=== PATIENT | female | born 1960 ===

== ENCOUNTER 2016-06-18 07:02 | Inpatient (IN) | payer MEDICARE, MEDICAID ==
[2016-06-18 07:02] VITALS: BMI 22.0
--- NOTE | 2016-06-18 07:33 | ED PDOC ---
HPI: General Adult Time Seen by Provider: 06/18/16 07:30 Chief Complaint (Nursing): Abdominal Pain Chief Complaint (Provider): abdominal pain History Per: Patient History/Exam Limitations: no limitations Additional Complaint(s): 55yo female w/ Hx diabetes, colitis, complaining of persistent abdominal pain, diarrhea, vomit since last night. No fever or blood in stool. PMD: Clinic Past Medical History Reviewed: Historical Data, Nursing Documentation, Vital Signs Vital Signs: Last Vital Signs Temp 97 F L 06/18/16 07:15 Pulse 100 H 06/18/16 07:15 Resp 20 06/18/16 07:15 BP 144/79 06/18/16 07:15 Pulse Ox 98 06/18/16 09:39 - Medical History PMH: Anxiety, Asthma, CAD, Depression, Diabetes, Fractures (rib (left)), Gastritis, Hyperthyroidism (pt is not sure what she has ), Hypothyroidism Denies: Arthritis, CHF, COPD, HIV, HTN, Hypercholesterolemia, Chronic Kidney Disease, Rheumatoid Arthritis Other PMH: colitis - Surgical History Surgical History: Appendectomy, Cholecystectomy, Coronary Stent, Tonsillectomy - Family History Family History: States: Unknown Family Hx - Immunization History Hx Tetanus Toxoid Vaccination: No Hx Influenza Vaccination: Yes Hx Pneumococcal Vaccination: Yes - Home Medications Home Medications: Ambulatory Orders Medication Instructions Recorded Insulin Lispro [humALOG] 4 units SC AC #0 ml 05/21/14 clonazePAM [Klonopin] 0.5 mg PO Q12 #0 tab 05/21/14 Citalopram Hydrobromide [Celexa] 20 mg PO DAILY 06/14/14 Lidocaine [Lidoderm] 1 patch TD DAILY 06/14/14 Pregabalin [Lyrica] 100 mg PO BID 06/14/14 QUEtiapine [SEROquel] 200 mg PO BID 06/14/14 Acetaminophen/Oxycodone Hydr 1 tab PO Q4H PRN #120 tab 09/15/14 [Percocet 10/325 mg Tab] Insulin Glargine,Hum.rec.anlog 12 units SC HS #0 09/15/14 [Lantus] Ciprofloxacin/Dexamethasone 4 drop OD BID #1 bottle 12/23/14 [Ciprodex Otic] Clindamycin [Cleocin] 300 mg PO Q8 #21 cap 10/17/16 Tramadol HCl [Ultram] 50 mg PO BID PRN #30 tablet 12/19/15 - Allergies Allergies/Adverse Reactions: Allergies Allergy/AdvReac Type Severity Reaction Status Date / Time Penicillins Allergy RASH Verified 06/18/16 07:15 Review of Systems ROS Statement: Except As Marked, All Systems Reviewed And Found Negative Constitutional: Negative for: Fever Gastrointestinal: Positive for: Vomiting, Abdominal Pain, Diarrhea. Negative for: Hematochezia Physical Exam - Reviewed Nursing Documentation Reviewed: Yes Vital Signs Reviewed: Yes - Physical Exam Appears: Positive for: Well, Non-toxic, No Acute Distress Head Exam: Positive for: ATRAUMATIC, NORMAL INSPECTION, NORMOCEPHALIC Skin: Positive for: Warm, Dry Eye Exam: Positive for: EOMI, PERRL ENT: Positive for: Other (dry mucous membranes) Cardiovascular/Chest: Positive for: Regular Rate, Rhythm Respiratory: Positive for: Normal Breath Sounds. Negative for: Rales, Rhonchi, Wheezing Gastrointestinal/Abdominal: Positive for: Soft, Tenderness (diffuse). Negative for: Guarding, Rebound Extremity: Positive for: Normal ROM - Laboratory Results Result Diagrams: 06/18/16 07:55 06/18/16 09:27 - ECG O2 Sat by Pulse Oximetry: 98 (RA) Pulse Ox Interpretation: Normal Medical Decision Making Medical Decision Makin: CT abd/pel w/ contrast, EKG, VBG shock panel, Labs, Morphine, Zofran, IV Fluids , ordered 0830: Accucheck shows glucose >500. Lactate 3.4. 10 units insulin was ordered. Repeat VBG shock panel at 1035 was ordered. Calculated osmolarity 330 hyperosmolar Disposition - Clinical Impression Clinical Impression: Colitis, Sepsis, Hyperosmolality, Diabetes - Patient ED Disposition Is Patient to be Admitted: Yes - Disposition Disposition Time: 10:55 Condition: FAIR - Pt Status Changed To: Hospital Disposition Of: Inpatient - Admit Certification Admit to Inpatient:: After my assessment, the patient will require hospitalization for at least two midnights. This is because of the severity of symptoms shown, intensity of services needed, and/or the medical risk in this patient being treated as an outpatient. - POA Present On Arrival: None Additional Comments - Additional Comments Additional Comments: Scribe Attestation: Documented by Aiden Ansari acting as a scribe for Emil Pugh MD. Provider Scribe Attestation: All medical record entries made by the Scribe were at my direction and personally dictated by me. I have reviewed the chart and agree that the record accurately reflects my personal performance of the history, physical exam, medical decision making, and the department course for this patient. I have also personally directed, reviewed, and agree with the discharge instructions and disposition.
[2016-06-18] MEDS ORDERED: Sodium Chloride 0.9% 1,000 ML IV STA ×2 (07:34→08:24)
[2016-06-18 08:05] LABS: BASO # 0.1 K/uL (0.0-0.2); BASO % 0.3 % (0.0-2.0); EOS % 0.1 % (0.0-4.0); HEMATOCRIT 39.6 % (34.0-47.0); LYMPH # 2.3 K/uL (1.0-4.3); LYMPH % 11.5 % (20.0-40.0); MEAN CORPUSCULAR HEMOGLOBIN 31.5 pg (27.0-31.0); MEAN CORPUSCULAR HGB CONC 32.9 g/dL (33.0-37.0); MEAN PLATELET VOLUME 8.4 fl (7.2-11.7); MONO # 1.6 K/uL (0.0-0.8); NEUT # 16.4 K/uL (1.8-7.0); NEUT % 80.1 % (50.0-75.0); RED CELL DISTRIBUTION WIDTH 13.8 % (11.5-14.5); WHITE BLOOD COUNT 20.5 K/uL (4.8-10.8)
[2016-06-18 08:09] LABS: MEAN CELL VOLUME 95.8 fl (81.0-99.0)
[2016-06-18 08:13] LABS: ALB/GLOB RATIO 1.1 (1.0-2.1); ALKALINE PHOSPHATASE 195 U/L (38-126); ALT/SGPT 70 U/L (9-52); AST/SGOT 90 U/L (14-36); BLOOD UREA NITROGEN 22 mg/dl (7-17); CARBON DIOXIDE 25 mmol/L (22-30); CHLORIDE 99 mmol/L (98-107); GFR AFRICAN-AMERICAN > 60; SODIUM 145 mmol/l (132-148); TOTAL PROTEIN 8.3 G/DL (6.3-8.2)
[2016-06-18 08:22] LABS: GLUCOSE,RANDOM 582 mg/dL (65-105)
[2016-06-18] MEDS ORDERED: Insulin Regular 100 units/ml IV STA (08:23)
[2016-06-18 08:24] LABS: VENOUS BLOOD GAS BASE EXCESS 7.9 mmol/L (0.0-2.0); VENOUS BLOOD GAS PCO2 36 mmHg (40-60); VENOUS BLOOD PH 7.54 (7.32-7.43)
[2016-06-18] MEDS ORDERED: Ciprofloxacin 400mg/200ml D5W 200 ML IVPB STA (09:39)
[2016-06-18 09:43] LABS: BLOOD UREA NITROGEN 20 mg/dl (7-17); CALCIUM 9.1 mg/dL (8.4-10.2); CARBON DIOXIDE 20 mmol/L (22-30); CHLORIDE 107 mmol/L (98-107); GFR AFRICAN-AMERICAN > 60; POTASSIUM 3.8 MMOL/L (3.6-5.0); SODIUM 149 mmol/l (132-148)
[2016-06-18 09:51] LABS: GLUCOSE,RANDOM 408 mg/dL (65-105)
[2016-06-18] MEDS ORDERED: Iohexol 300 50 ML ONE (09:51)
[2016-06-18] MEDS ORDERED: Sodium Chloride 0.9% 50 ML IV ONE (09:51)
--- NOTE | 2016-06-18 10:38 | CT ---
PROCEDURE: CT Abdomen and Pelvis with contrast HISTORY: abd pain COMPARISON: Limited abdominal ultrasound performed 12/23/14, CT abdomen and pelvis with contrast performed 09/13/14 TECHNIQUE: Contrast dose: 95 mL Omnipaque 300 Radiation dose: Total exam DLP = 314.68 mGy-cm. This CT exam was performed using one or more of the following dose reduction techniques: Automated exposure control, adjustment of the mA and/or kV according to patient size, and/or use of iterative reconstruction technique. FINDINGS: LOWER THORAX: No visible consolidation, pleural effusion, or pneumothorax. LIVER: Hypoattenuation of the liver compatible with hepatic steatosis. GALLBLADDER AND BILE DUCTS: Cholecystectomy. PANCREAS: Fatty replacement of the pancreas with minimal pancreatic tissue noted in the region of the head/proximal body. SPLEEN: Multiple soft tissue rounded densities in the left upper quadrant appear compatible with splenules. ADRENALS: Unremarkable. KIDNEYS AND URETERS: The kidneys enhance symmetrically. No evidence of hydronephrosis or obstructing calculus. Too small to characterize 5 mm left lower pole renal hypodensity, statistically likely cysts. 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 No aortic aneurysm. BOWEL: The stomach is nondistended. No evidence of bowel obstruction. Non rotation of bowel with colon on the left side of the abdomen and small bowel on the right side of the abdomen. Mucosal thickening/edema of the sigmoid colon wall; correlate clinically for possibility of colitis (i.e. infectious, inflammatory, or ischemic) APPENDIX: Not visualized. No secondary signs of acute appendicitis. PERITONEUM: No significant free fluid. No definite free air. LYMPH NODES: No bulky adenopathy. BLADDER: Unremarkable. REPRODUCTIVE: The uterus is absent , presumably due to hysterectomy. BONES: Degenerative changes. OTHER FINDINGS: Tiny fat containing umbilical hernia. IMPRESSION: Mucosal thickening/edema of the sigmoid colon wall; correlate clinically for possibility of colitis (i.e. infectious, inflammatory, or ischemic) Non rotation of bowel with colon on the left side of the abdomen and small bowel on the right side of the abdomen. Fatty replacement of the pancreas with minimal pancreatic tissue noted in the region of the head/proximal body. Multiple soft tissue rounded densities in the left upper quadrant appear compatible with splenules. Cholecystectomy. Hysterectomy.
[2016-06-18 10:50] LABS: ABG ALLEN TEST YES; ARTERIAL BLOOD GAS HCO3 30.7 mmol/L (21-28); ARTERIAL BLOOD GAS PH 7.47 (7.35-7.45); ARTERIAL BLOOD GAS PO2 88 mm/Hg (80-100)
[2016-06-18] MEDS ORDERED: Vancomycin 1 g Inj ONE (11:20)
[2016-06-18] MEDS ORDERED: Ciprofloxacin 400mg/200ml D5W 200 ML IVPB ONE (11:20)
[2016-06-18 12:41] LABS: LIPASE 141 U/L (23-300)
[2016-06-18] MEDS: Insulin Regular 100 units/ml SC SCH ×4 (13:09→22:15)
--- NOTE | 2016-06-18 13:20 | CP.PCM.HP ---
History of Present Illness - History of Present Illness History of Present Illness: CC: Abdominal Pain HPI: The patient is a 55 y/o woman w/ a PMH of HTN, CAD s/p stent 2006, DM type 2, Hypothyroidism, neuropathy, and osteoarthritis presents to the ED with abdominal pain. The patient reports that the pain started about 2 days ago after drinking 2 small glasses of [place] at a friend's house and the pain was at its worse this morning. The patient reports epigastric pain, non-radiating, constant, with multiple episodes of nausea, vomiting, and diarrhea. The vomit was >5 episodes that was non-bloody but possibly bilious and the diarrhea was > 5 episodes and watery. The patient denies new foods/diet, sick contacts, recent travel, and recent illness. The patient reports having colitis over 1 year ago but this is worse than that time. The patient reports having a colonoscopy about 1 year ago that was normal (however, no reports seen on [facility]). The patient reports that she continues to smoke about 1 pack/day for the past 41 years and is not interested in quitting or requiring nicotine patch while in the hospital. The patient denies any cancer or HIV history. The patient also denies sexual activity, last sexually active about 5 years ago. 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 The patient denies syncope, dysuria, and fevers. Allergies: penicillins (rash) PMH: HTN, CAD s/p stent 2006, DM type 2, Hypothyroidism, neuropathy, and osteoarthritis PSH: tonsillectomy, hysterectomy (2001), cholecystectomy (), appendectomy ( 1997) Hosp: colitis >1 years ago Fam: both parents , mother had thyroid cancer SOC: smokes about 1 pack/day for 41 years, rare social drinking, ingested marijuana recently and uses marijuana about once a month ROS: negative except for HPI PMD: [facility], Dr. Nakia Warner Pharmacy: [facility] ED course: vitals: 98.4 F, 93 beats/min, 154/87 mmHg, 16 breaths/min, O2 99% NC [address] abdomen/pelvis w/ contrast EKG VBG shock panel CBC CMP Given zofran, IVF NS, x2 morphine 2mg IV, reglan 10 mg IV, ciprofloxacin 400 mg IV, vancomycin 1 gm IV Present on Admission - Present on Admission Any Indicators Present on Admission: No Review of Systems - Review of Systems All systems: reviewed and no additional remarkable complaints except Past Patient History - Infectious Disease Hx of Infectious Diseases: None - Past Medical History & Family History Past Medical History?: Yes - Past Social History Smoking Status: Light Smoker < 10 Cigarettes Daily - CARDIAC Hx Congestive Heart Failure: No Hx Hypercholesterolemia: No Hx Hypertension: No - PULMONARY Hx Asthma: Yes Hx Chronic Obstructive Pulmonary Disease (COPD): No - NEUROLOGICAL Hx Syncope: Yes (frequent falls) - HEENT Hx HEENT Problems: No - RENAL Hx Chronic Kidney Disease: No - ENDOCRINE/METABOLIC Hx Hyperthyroidism: Yes (pt is not sure what she has ) Hx Hypothyroidism: Yes - HEMATOLOGICAL/ONCOLOGICAL Hx Human Immunodeficiency Virus (HIV): No - INTEGUMENTARY Other/Comment: R very small dry scab hx of fall at home - MUSCULOSKELETAL/RHEUMATOLOGICAL Hx Arthritis: No Hx Fractures: Yes (rib (left)) Hx Rheumatoid Arthritis: No - GASTROINTESTINAL Hx Gastritis: Yes - GENITOURINARY/GYNECOLOGICAL Hx Genitourinary Disorders: No - PSYCHIATRIC Hx Anxiety: Yes Hx Depression: Yes - SURGICAL HISTORY Hx Appendectomy: Yes Hx Cholecystectomy: Yes Hx Coronary Stent: Yes Hx Tonsillectomy: Yes - ANESTHESIA Hx Anesthesia: Yes Hx Anesthesia Reactions: No Hx Malignant Hyperthermia: No Meds Allergies/Adverse Reactions: Allergies Allergy/AdvReac Type Severity Reaction Status Date / Time Penicillins Allergy RASH Verified 06/18/16 07:15 Physical Exam - Constitutional Appears: No Acute Distress - Head Exam Head Exam: ATRAUMATIC, NORMOCEPHALIC - Eye Exam Eye Exam: EOMI Pupil Exam: PERRL - ENT Exam ENT Exam: Mucous Membranes Dry - Respiratory Exam Respiratory Exam: Clear to Auscultation Bilateral. absent: Accessory Muscle Use , Chest Wall Tenderness, Decreased Breath Sounds, Prolonged Expiratory Phase, Rales, Rhonchi, Wheezes, Respiratory Distress, Stridor - Cardiovascular Exam Cardiovascular Exam: REGULAR RHYTHM. absent: Tachycardia - GI/Abdominal Exam GI & Abdominal Exam: Normal Bowel Sounds, Soft, Tenderness. absent: Distended Additional comments: epigastric tenderness - Extremities Exam Extremities exam: Positive for: normal inspection, pedal pulses present. Negative for: calf tenderness, pedal edema, tenderness - Neurological Exam Neurological exam: Alert, Oriented x3 - Skin Skin Exam: Dry, Intact, Pallor Results - Vital Signs Recent Vital Signs: Last Vital Signs Temp 97 F L 04/17/17 07:15 Pulse 100 H 06/18/16 07:15 Resp 20 06/18/16 07:15 BP 144/79 06/18/16 07:15 Pulse Ox 98 06/18/16 10:55 - Labs Result Diagrams: 06/18/16 07:55 06/18/16 09:27 Labs: Laboratory Results - last 24 hr 06/18/16 06/18/16 06/18/16 07:55 08:20 09:27 WBC 20.5 H D RBC 4.13 Hgb 13.0 Hct 39.6 MCV 95.8 D MCH 31.5 H MCHC 32.9 L RDW 13.8 Plt Count 332 MPV 8.4 Neut % (Auto) 80.1 H Lymph % (Auto) 11.5 L Montgomery % (Auto) 8.0 Eos % (Auto) 0.1 Baso % (Auto) 0.3 Neut # 16.4 H Lymph # 2.3 Montgomery # 1.6 H Eos # 0.0 Baso # 0.1 pCO2 pO2 32 HCO3 ABG pH ABG Total CO2 ABG O2 Saturation ABG Base Excess Kayode Test ABG Potassium VBG pH 7.54 H VBG pCO2 36 L VBG HCO3 30.4 VBG Total CO2 31.9 H VBG O2 Sat (Calc) 71.3 H VBG Base Excess 7.9 H VBG Potassium 4.5 A-a O2 Difference 73.0 Glucose 602 H* Lactate 3.4 H FiO2 21.0 Crit Value Called To Dr rafaela duarte Crit Value Called By 15 Crit Value Read Back Y Blood Gas Notified Time 823 Sodium 145 142.0 149 H Potassium 3.8 Chloride 99 102.0 107 Carbon Dioxide 25 20 L Anion Gap 28 H 26 H BUN 22 H 20 H Creatinine 0.5 L 0.5 L Est GFR ( Amer) > 60 > 60 Est GFR (Non-Af Amer) > 60 > 60 Random Glucose 582 H* D 408 H* D Calcium 10.0 9.1 Total Bilirubin 2.0 H AST 90 H D ALT 70 H D Alkaline Phosphatase 195 H D Total Protein 8.3 H Albumin 4.4 Globulin 3.9 Albumin/Globulin Ratio 1.1 Lipase 141 Arterial Blood Potassium Venous Blood Potassium 4.5 06/18/16 10:40 WBC RBC Hgb Hct MCV MCH MCHC RDW Plt Count MPV Neut % (Auto) Lymph % (Auto) Montgomery % (Auto) Eos % (Auto) Baso % (Auto) Neut # Lymph # Montgomery # Eos # Baso # pCO2 44 pO2 88 HCO3 30.7 H ABG pH 7.47 H ABG Total CO2 33.4 H ABG O2 Saturation 96.7 ABG Base Excess 7.4 H Kayode Test Yes ABG Potassium 3.3 L VBG pH VBG pCO2 VBG HCO3 VBG Total CO2 VBG O2 Sat (Calc) VBG Base Excess VBG Potassium A-a O2 Difference 7.0 Glucose 180 H Lactate 2.5 H FiO2 21.0 Crit Value Called To Crit Value Called By Crit Value Read Back Blood Gas Notified Time Sodium 145.0 Potassium Chloride 111.0 H Carbon Dioxide Anion Gap BUN Creatinine Est GFR ( Amer) Est GFR (Non-Af Amer) Random Glucose Calcium Total Bilirubin AST ALT Alkaline Phosphatase Total Protein Albumin Globulin Albumin/Globulin Ratio Lipase Arterial Blood Potassium 3.3 L Venous Blood Potassium Assessment & Plan - Assessment and Plan (Free Text) Assessment: The patient is a 55 y/o woman w/ a PMH of HTN, DM type 2, Hypothyroidism, neuropathy, and osteoarthritis presents to the ED with abdominal pain Plan: 1) Sepsis secondary to colitis - + leukocytosis (WBC 20.5) but afebrile - initial lactate 3.4 - repeat lactate 2.5 - CT abdomen w/contrast: mucosal thickening/edema of sigmoid colon wall, cholecystectomy, hysterectomy - NPO - Ciprofloxacin 400 mg IV Q12h - metronidazole 500 mg IV Q8 - Zofran 4 mg IV Q 4hrs PRN - Morphine 2 mg IV Q6 prn - IVF NS 100mL/hr - follow up blood culture 2) Epigastric pain - lipase: 141, WNL - Ca2+ 9.1 - EKG: (prelim) NSR - Pepcid 20 mg IV once - Pepcid 20 mg PO BID 3) Hyperglycemia - DM Type 2 - glucose 582 - hyperosmolar - HgbA1c: 10.8 (02/2016) - Insulin Levemir 10 units SC HS - Insulin Sliding Scale SC ACHS - hypoglycemia protocol 4) Hypothyroidism - levothyroxine 50 mcg PO daily 5) HTN - lisinopril 10 mg PO daily 6) Hx of Major Depression - home medications: quetiapine 600 mg PO HS, mirtazapine 15 mg PO HS - held citalopram 40 mg PO daily 7) Chronic pain (b/l shoulders and lower extremities) - morphine 2 mg IV Q6h prn - patient follows up with Dr. Cardenas from pain management 8) DVT prophylaxis - Lovenox 40units SC daily
--- NOTE | 2016-06-18 16:10 | CARD ---
APPROVED REPORT EKG Measurement Heart [id number] <Conclusion> Sinus rhythm with premature supraventricular complexes Otherwise normal ECG
[2016-06-18] MEDS: Enoxaparin 40 mg Syringe SC SCH (16:34)
[2016-06-18 17:32] LABS: BLOOD UREA NITROGEN 20 mg/dl (7-17); CALCIUM 8.8 mg/dL (8.4-10.2); CARBON DIOXIDE 29 mmol/L (22-30); CHLORIDE 105 mmol/L (98-107); GFR AFRICAN-AMERICAN > 60; GLUCOSE,RANDOM 99 mg/dL (65-105); POTASSIUM 3.7 MMOL/L (3.6-5.0); SODIUM 148 mmol/l (132-148)
[2016-06-18] MEDS ORDERED: Dextrose 50% SYRINGE Inj (50 ml) IVP PRN (18:40)
[2016-06-18] MEDS ORDERED: Glucagon Recombinant 1 mg Inj IM PRN (18:40)
[2016-06-18] MEDS: metroNIDAZOLE 500mg/100ml NS 100 ML IVPB SCH (18:41)
[2016-06-18] MEDS: Potassium Chl 20 mEq in NS 1,000 ML IV SCH (18:41)
[2016-06-18] MEDS: Insulin Detemir 100 Units/ml Inj SC SCH (22:17)
[2016-06-18] MEDS: Ciprofloxacin 400mg/200ml D5W 200 ML IVPB SCH (22:37)
[2016-06-19] MEDS: metroNIDAZOLE 500mg/100ml NS 100 ML IVPB SCH ×3 (00:31→16:55)
[2016-06-19] MEDS: Levothyroxine 50 MCG TAB PO SCH (06:30)
[2016-06-19] MEDS: Insulin Regular 100 units/ml SC SCH ×4 (06:50→22:36)
[2016-06-19 07:10] LABS: HEMATOCRIT 30.5 % (34.0-47.0); MEAN CELL VOLUME 94.6 fl (81.0-99.0); MEAN CORPUSCULAR HEMOGLOBIN 31.6 pg (27.0-31.0); MEAN CORPUSCULAR HGB CONC 33.4 g/dL (33.0-37.0); RED CELL DISTRIBUTION WIDTH 13.6 % (11.5-14.5); WHITE BLOOD COUNT 11.7 K/uL (4.8-10.8)
--- NOTE | 2016-06-19 07:17 | CP.PCM.PN ---
Subjective - Date & Time of Evaluation Date of Evaluation: 06/19/16 Time of Evaluation: 07:13 - Subjective Subjective: The patient is a 55 y/o woman w/ a PMH of HTN, DM type 2, Hypothyroidism, neuropathy, and osteoarthritis presents to the ED with abdominal pain. The patient was seen this morning. The patient was having shakes and had a blood sugar reading of 53 last night, which resolved with apple juice. The patient is not in acute distress. The patient reports she feels better and more active than yesterday. The patient denies nausea, vomiting, and diarrhea overnight. The patient reports the epigastric pain is still present but controlled with medication. The patient initially complained that IV on her left hand was causing pain. The IV was flushed and not infiltrated. Patient reported relief. The patient reports no other complaints. Objective - Vital Signs/Intake and Output Vital Signs (last 24 hours): Temp Pulse Resp BP Pulse Ox 98.6 F 93 H 18 115/68 97 06/19/16 05:00 06/19/16 05:00 06/19/16 05:00 06/19/16 05:00 06/19/16 05:00 - Medications Medications: Current Medications Albuterol (Ventolin Hfa 90 Mcg/Actuation (8 G)) 2 puff IH Q4H PRN PRN Reason: Shortness of Breath Alprazolam (Xanax) 0.5 mg PO TID [facility] Last Admin: 06/18/16 22:17 Dose: 0.5 mg Dextrose (Dextrose 50% Inj) 0 ml IVP STAT PRN; Protocol PRN Reason: Hypoglycemia Protocol Last Admin: 06/18/16 19:06 Dose: 50 ml Enoxaparin Sodium (Lovenox) 40 mg SC DAILY [facility] PRN Reason: Protocol Last Admin: 06/18/16 16:34 Dose: 40 mg Famotidine (Pepcid) 20 mg PO BID [facility] Last Admin: 06/18/16 18:43 Dose: 20 mg Glucagon (Glucagen Diagnostic Kit) 0 mg IM STAT PRN; Protocol PRN Reason: Hypoglycemia Protocol Ciprofloxacin (Cipro 400mg/200ml Dsw) 200 mls @ 200 mls/hr IVPB Q12 [facility] Last Admin: 06/18/16 22:37 Dose: 200 mls/hr Metronidazole (Flagyl 500mg/100ml Ns) 100 mls @ 100 mls/hr IVPB Q8 [facility] Last Admin: 06/19/16 00:31 Dose: 100 mls/hr Potassium Chloride/Sodium Chloride (Potassium Chl 20 Meq In Ns) 1,000 mls @ 90 mls/hr IV .[id number] [facility] Last Admin: 06/18/16 18:41 Dose: 90 mls/hr Insulin Detemir (Levemir) 10 units SC [facility] Last Admin: 06/18/16 22:17 Dose: 10 u Insulin Human Regular (Humulin R) 0 units SC ACHS [facility] PRN Reason: Protocol Last Admin: 06/18/16 22:15 Dose: Not Given Levothyroxine Sodium (Synthroid) 50 mcg PO ACB [facility] Last Admin: 06/19/16 06:30 Dose: 50 mcg Lisinopril (Zestril) 10 mg PO DAILY [facility] Mirtazapine (Remeron) 15 mg PO [facility] Last Admin: 06/18/16 21:24 Dose: 15 mg Morphine Sulfate (Morphine) 2 mg IVP Q6 PRN PRN Reason: Pain, moderate (4-7) Last Admin: 06/19/16 06:26 Dose: 2 mg Ondansetron HCl (Zofran Inj) 4 mg IVP Q6 PRN PRN Reason: Nausea/Vomiting Quetiapine Fumarate (Seroquel) 600 mg PO [facility] Last Admin: 06/18/16 21:24 Dose: 600 mg - Labs Labs: 06/18/16 17:13 - Constitutional Appears: No Acute Distress - Head Exam Head Exam: ATRAUMATIC, NORMOCEPHALIC - ENT Exam ENT Exam: Mucous Membranes Dry - Respiratory Exam Respiratory Exam: Clear to Ausculation Bilateral. absent: Accessory Muscle Use , Chest Wall Tenderness, Decreased Breath Sounds, Prolonged Expiratory Phase, Rales, Rhonchi, Wheezes, Respiratory Distress, Stridor - Cardiovascular Exam Cardiovascular Exam: REGULAR RHYTHM. absent: Tachycardia - GI/Abdominal Exam GI & Abdominal Exam: Soft, Tenderness, Normal Bowel Sounds. absent: Distended Additional comments: mild epigastric tenderness - Extremities Exam Extremities Exam: Normal Inspection. absent: Calf Tenderness, Pedal Edema, Tenderness - Neurological Exam Neurological Exam: Alert, Awake, Oriented x3 - Skin Skin Exam: Dry, Intact, Pallor, Warm Assessment and Plan - Assessment and Plan (Free Text) Assessment: The patient is a 55 y/o woman w/ a PMH of HTN, DM type 2, Hypothyroidism, neuropathy, and osteoarthritis presents to the ED with abdominal pain Plan: 1) Sepsis secondary to colitis - patient continues to be afebrile - lactic acid 2.9 - WBC decreased from 20.5 to 11.7 - CBC 11.7>10.2/30.5<234 - CT abdomen w/contrast: mucosal thickening/edema of sigmoid colon wall, cholecystectomy, hysterectomy - advanced to clear liquid diet with moderate consistent carbohydrate - Day 1: Ciprofloxacin 400 mg IV Q12h - Day 1: metronidazole 500 mg IV Q8 - Zofran 4 mg IV Q 4hrs PRN - Morphine 2 mg IV Q6 prn - IVF KCl 20 meq-NS 90mL/hr - follow up blood culture 2) Epigastric pain - lipase: 141, WNL - Ca2+ 8.3 - EKG: NSR with premature supraventricular complexes - Pepcid 20 mg PO BID 3) Hyperglycemia - Insulin dependent DM Type 2 - glucose 158 - hyperosmolar - HgbA1c: 10.8 (02/2016) - Insulin Levemir 10 units SC HS - Insulin Sliding Scale SC ACHS - hypoglycemia protocol 4) Anemia - Hg 10.2 - follow up iron level, ferritin, TIBC - follow up stool occult blood 5) Hypothyroidism - levothyroxine 50 mcg PO daily 6) HTN - lisinopril 10 mg PO daily 7) Hx of Major Depression - home medications: quetiapine 600 mg PO HS, mirtazapine 15 mg PO HS - held citalopram 40 mg PO daily 8) Chronic pain (b/l shoulders and lower extremities) - home medication: xanax 0.5 mg PO TID - morphine 2 mg IV Q6h prn - patient follows up with Dr. Borrego from pain management 9) DVT prophylaxis - Lovenox 40 mg SC daily
[2016-06-19 07:19] LABS: ALKALINE PHOSPHATASE 133 U/L (38-126); ALT/SGPT 57 U/L (9-52); AST/SGOT 31 U/L (14-36); BILIRUBIN,TOTAL 0.6 mg/dl (0.2-1.3); BLOOD UREA NITROGEN 14 mg/dl (7-17); CALCIUM 8.3 mg/dL (8.4-10.2); CARBON DIOXIDE 26 mmol/L (22-30); CHLORIDE 105 mmol/L (98-107); GFR AFRICAN-AMERICAN > 60; GLUCOSE,RANDOM 142 mg/dL (65-105); POTASSIUM 3.3 MMOL/L (3.6-5.0); SODIUM 141 mmol/l (132-148); TOTAL PROTEIN 5.3 G/DL (6.3-8.2)
[2016-06-19] MEDS: Ciprofloxacin 400mg/200ml D5W 200 ML IVPB SCH ×2 (08:56→23:48)
[2016-06-19] MEDS: Enoxaparin 40 mg Syringe SC SCH (08:59)
[2016-06-19] MEDS: Albuterol HFA 90 mcg/actuation (8 g) IH PRN (08:59)
[2016-06-19] MEDS: Potassium Chl 20 mEq in NS 1,000 ML IV SCH (14:00)
[2016-06-19] MEDS: Insulin Detemir 100 Units/ml Inj SC SCH (22:32)
[2016-06-20] MEDS: metroNIDAZOLE 500mg/100ml NS 100 ML IVPB SCH ×3 (02:40→16:46)
[2016-06-20] MEDS: Potassium Chl 20 mEq in NS 1,000 ML IV SCH ×2 (04:21→16:48)
[2016-06-20] MEDS: Levothyroxine 50 MCG TAB PO SCH (07:02)
--- NOTE | 2016-06-20 07:32 | CP.PCM.PN ---
Subjective - Date & Time of Evaluation Date of Evaluation: 06/20/16 Time of Evaluation: 07:05 - Subjective Subjective: The patient is a 55 y/o woman w/ a PMH of HTN, DM type 2, Hypothyroidism, neuropathy, and osteoarthritis presents to the ED with abdominal pain. The patient was seen this morning. The patient is laying in bed and awake. The patient's left IV infiltrated and resulted in edema of the hand. IV heplock was removed and patient was given warm compress. Swelling has subsided but still present. A new IV heplock was placed in the right hand, but the fluids have been held due to beginning of edema of the right hand as well. The patient has small veins. The patient is not in acute distress. The patient denies nausea and vomiting overnight; however reports a loose bowel movement this morning for which she did not get a chance to reach the bathroom. The patient reports the epigastric pain is still about the same but controlled with medication. The patient reports no other complaints. Objective - Vital Signs/Intake and Output Vital Signs (last 24 hours): Temp Pulse Resp BP Pulse Ox 98.8 F 93 H 20 150/80 97 06/20/16 00:44 06/20/16 00:44 06/20/16 00:44 06/20/16 00:44 06/20/16 00:44 - Medications Medications: Current Medications Albuterol (Ventolin Hfa 90 Mcg/Actuation (8 G)) 2 puff IH Q4H PRN PRN Reason: Shortness of Breath Last Admin: 06/19/16 08:59 Dose: 2 puff Alprazolam (Xanax) 0.5 mg PO TID [facility] Last Admin: 06/19/16 16:54 Dose: 0.5 mg Dextrose (Dextrose 50% Inj) 0 ml IVP STAT PRN; Protocol PRN Reason: Hypoglycemia Protocol Last Admin: 06/18/16 19:06 Dose: 50 ml Enoxaparin Sodium (Lovenox) 40 mg SC DAILY [facility] PRN Reason: Protocol Last Admin: 06/19/16 08:59 Dose: 40 mg Famotidine (Pepcid) 20 mg PO BID [facility] Last Admin: 06/19/16 16:55 Dose: 20 mg Glucagon (Glucagen Diagnostic Kit) 0 mg IM STAT PRN; Protocol PRN Reason: Hypoglycemia Protocol Ciprofloxacin (Cipro 400mg/200ml Dsw) 200 mls @ 200 mls/hr IVPB Q12 [facility] Last Admin: 06/19/16 23:48 Dose: 200 mls/hr Metronidazole (Flagyl 500mg/100ml Ns) 100 mls @ 100 mls/hr IVPB Q8 [facility] Last Admin: 06/20/16 02:40 Dose: 100 mls/hr Potassium Chloride/Sodium Chloride (Potassium Chl 20 Meq In Ns) 1,000 mls @ 90 mls/hr IV .Q11H7M [facility] Last Admin: 06/20/16 04:21 Dose: 90 mls/hr Insulin Detemir (Levemir) 10 units SC [facility] Last Admin: 06/19/16 22:32 Dose: 10 u Insulin Human Regular (Humulin R) 0 units SC [facility] PRN Reason: Protocol Last Admin: 06/19/16 22:36 Dose: Not Given Levothyroxine Sodium (Synthroid) 50 mcg PO ACB [facility] Last Admin: 06/20/16 07:02 Dose: 50 mcg Lisinopril (Zestril) 10 mg PO DAILY [facility] Last Admin: 06/19/16 08:58 Dose: 10 mg Mirtazapine (Remeron) 15 mg PO [facility] Last Admin: 06/19/16 22:24 Dose: 15 mg Morphine Sulfate (Morphine) 2 mg IVP Q6 PRN PRN Reason: Pain, moderate (4-7) Last Admin: 06/20/16 07:00 Dose: 2 mg Ondansetron HCl (Zofran Inj) 4 mg IVP Q6 PRN PRN Reason: Nausea/Vomiting Quetiapine Fumarate (Seroquel) 600 mg PO [facility] Last Admin: 06/19/16 22:25 Dose: 600 mg - Labs Labs: 06/19/16 06:15 06/19/16 06:15 - Constitutional Appears: No Acute Distress - Head Exam Head Exam: ATRAUMATIC, NORMOCEPHALIC - ENT Exam ENT Exam: Mucous Membranes Moist - Respiratory Exam Respiratory Exam: Clear to Ausculation Bilateral. absent: Accessory Muscle Use , Chest Wall Tenderness, Decreased Breath Sounds, Prolonged Expiratory Phase, Rales, Rhonchi, Wheezes, Respiratory Distress, Stridor - Cardiovascular Exam Cardiovascular Exam: REGULAR RHYTHM. absent: Tachycardia - GI/Abdominal Exam GI & Abdominal Exam: Soft, Tenderness, Normal Bowel Sounds. absent: Distended Additional comments: mild epigastric tenderness same as yesterday - Extremities Exam Extremities Exam: Normal Inspection. absent: Calf Tenderness, Pedal Edema, Tenderness - Neurological Exam Neurological Exam: Alert, Awake, Oriented x3 - Skin Skin Exam: Dry, Intact, Pallor, Warm Additional comments: pallor is less than on admission Assessment and Plan - Assessment and Plan (Free Text) Assessment: The patient is a 55 y/o woman w/ a PMH of HTN, DM type 2, Hypothyroidism, neuropathy, and osteoarthritis presents to the ED with abdominal pain Plan: 1) Sepsis secondary to colitis - patient continues to be afebrile - lactic acid 2.9 - CBC 06/19/2016 11.7>10.2/30.5<234 - Day 2: Ciprofloxacin 400 mg IV Q12h - Day 2: metronidazole 500 mg IV Q8 - Zofran 4 mg IV Q 4hrs PRN - Morphine 2 mg IV Q6 prn - IVF KCl 20 meq-NS 90mL/hr; held for now due to right hand swelling - blood culture: (prelim) no growth after 24 hours - transfer to [facility] 2) Epigastric pain - lipase: 141, WNL - Ca2+ 8.3 - Pepcid 20 mg PO BID 3) Hyperglycemia - Insulin dependent DM Type 2 - glucose 91 - HgbA1c: 10.8 (02/2016) - Insulin Levemir 10 units SC HS - Insulin Sliding Scale SC ACHS - hypoglycemia protocol 4) Anemia - Hg 10.2 - reticulocyte count: 1.2 - iron level: 81 - ferritin: 117 - TIBC: 239L - Absolute reticulocyte count: 0.9; hypoproliferation - follow up stool occult blood - anemia of chronic disease 5) Hypothyroidism - levothyroxine 50 mcg PO daily 6) HTN - lisinopril 10 mg PO daily 7) Hx of Major Depression - home medications: quetiapine 600 mg PO HS, mirtazapine 15 mg PO HS - held citalopram 40 mg PO daily 8) Chronic pain (b/l shoulders and lower extremities) - home medication: xanax 0.5 mg PO TID - morphine 2 mg IV Q6h prn - patient follows up with Dr. Borrego from pain management 9) DVT prophylaxis - Lovenox 40 mg SC daily
[2016-06-20 07:36] LABS: IRON 81 ug/dL (37-170)
[2016-06-20] MEDS: Enoxaparin 40 mg Syringe SC SCH (09:25)
[2016-06-20] MEDS: Ciprofloxacin 400mg/200ml D5W 200 ML IVPB SCH ×2 (09:28→21:00)
[2016-06-20] MEDS: Insulin Regular 100 units/ml SC SCH ×4 (09:29→21:48)
[2016-06-20] MEDS: Albuterol HFA 90 mcg/actuation (8 g) IH PRN (09:29)
[2016-06-20] MEDS: oxyCODONE 5 mg Immediate Release Tab PO SCH ×4 (12:51→21:52)
[2016-06-20] MEDS: Insulin Detemir 100 Units/ml Inj SC SCH (21:48)
[2016-06-21] MEDS: metroNIDAZOLE 500mg/100ml NS 100 ML IVPB SCH ×3 (00:50→16:42)
[2016-06-21] MEDS: Potassium Chl 20 mEq in NS 1,000 ML IV SCH (04:51)
[2016-06-21] MEDS: Levothyroxine 50 MCG TAB PO SCH (06:56)
[2016-06-21] MEDS: Insulin Regular 100 units/ml SC SCH ×4 (06:56→22:00)
[2016-06-21] MEDS: Ciprofloxacin 400mg/200ml D5W 200 ML IVPB SCH ×2 (09:27→21:57)
[2016-06-21] MEDS: Enoxaparin 40 mg Syringe SC SCH (09:28)
--- NOTE | 2016-06-21 09:29 | CP.PCM.PN ---
Subjective - Date & Time of Evaluation Date of Evaluation: 06/21/16 Time of Evaluation: 07:30 - Subjective Subjective: The patient is a 55 y/o woman w/ a PMH of HTN, DM type 2, Hypothyroidism, neuropathy, and osteoarthritis presents to the ED with abdominal pain. The patient was seen this morning. The patient is laying in bed and awake. The patient is not in acute distress. The patient reports about 4 incontinent, loose bowel movements. The patient reports the bowel movements were brown and watery. The patient denied blood, pale, fatty, greasy, foul-smelling stool. The patient reports the epigastric pain is a little better and controlled with medication. The patient tolerated rice and some chicken last night without any nausea and vomiting. The patient reports no other complaints. Objective - Vital Signs/Intake and Output Vital Signs (last 24 hours): Temp Pulse Resp BP Pulse Ox 98.3 F 91 H 18 148/83 98 06/21/16 08:00 06/21/16 08:00 06/21/16 08:00 06/21/16 08:00 06/21/16 08:00 - Medications Medications: Current Medications Albuterol (Ventolin Hfa 90 Mcg/Actuation (8 G)) 2 puff IH Q4H PRN PRN Reason: Shortness of Breath Last Admin: 06/20/16 09:29 Dose: 2 puff Alprazolam (Xanax) 0.5 mg PO TID [facility] Last Admin: 06/20/16 16:48 Dose: 0.5 mg Dextrose (Dextrose 50% Inj) 0 ml IVP STAT PRN; Protocol PRN Reason: Hypoglycemia Protocol Last Admin: 06/18/16 19:06 Dose: 50 ml Enoxaparin Sodium (Lovenox) 40 mg SC DAILY [facility] PRN Reason: Protocol Last Admin: 06/20/16 09:25 Dose: 40 mg Famotidine (Pepcid) 20 mg PO BID [facility] Last Admin: 06/20/16 18:10 Dose: 20 mg Glucagon (Glucagen Diagnostic Kit) 0 mg IM STAT PRN; Protocol PRN Reason: Hypoglycemia Protocol Ciprofloxacin (Cipro 400mg/200ml Dsw) 200 mls @ 200 mls/hr IVPB Q12 [facility] Last Admin: 06/20/16 21:00 Dose: 200 mls/hr Metronidazole (Flagyl 500mg/100ml Ns) 100 mls @ 100 mls/hr IVPB Q8 [facility] Last Admin: 06/21/16 00:50 Dose: 100 mls/hr Potassium Chloride/Sodium Chloride (Potassium Chl 20 Meq In Ns) 1,000 mls @ 90 mls/hr IV .Q11H7M [facility] Last Admin: 06/21/16 04:51 Dose: 90 mls/hr Insulin Detemir (Levemir) 10 units SC [facility] Last Admin: 06/20/16 21:48 Dose: 10 u Insulin Human Regular (Humulin R) 0 units SC [facility] PRN Reason: Protocol Last Admin: 06/21/16 06:56 Dose: 2 units Levothyroxine Sodium (Synthroid) 50 mcg PO ACB [facility] Last Admin: 06/21/16 06:56 Dose: 50 mcg Lisinopril (Zestril) 10 mg PO DAILY [facility] Last Admin: 06/20/16 09:26 Dose: 10 mg Mirtazapine (Remeron) 15 mg PO [facility] Last Admin: 06/20/16 21:42 Dose: 15 mg Ondansetron HCl (Zofran Inj) 4 mg IVP Q6 PRN PRN Reason: Nausea/Vomiting Oxycodone HCl (Oxycodone Immediate Release Tab) 15 mg PO QID [facility] Last Admin: 06/20/16 21:52 Dose: 15 mg Quetiapine Fumarate (Seroquel) 600 mg PO [facility] Last Admin: 06/20/16 21:42 Dose: 600 mg - Labs Labs: 06/19/16 06:15 06/19/16 06:15 - Constitutional Appears: No Acute Distress - Head Exam Head Exam: ATRAUMATIC, NORMOCEPHALIC - ENT Exam ENT Exam: Mucous Membranes Dry - Respiratory Exam Respiratory Exam: Clear to Ausculation Bilateral. absent: Accessory Muscle Use , Chest Wall Tenderness, Decreased Breath Sounds, Prolonged Expiratory Phase, Rales, Rhonchi, Wheezes, Respiratory Distress, Stridor - Cardiovascular Exam Cardiovascular Exam: REGULAR RHYTHM. absent: Tachycardia - GI/Abdominal Exam GI & Abdominal Exam: Soft, Tenderness, Normal Bowel Sounds. absent: Distended Additional comments: mild epigastric tenderness - Extremities Exam Extremities Exam: Normal Inspection. absent: Calf Tenderness, Pedal Edema, Tenderness - Neurological Exam Neurological Exam: Alert, Awake, Normal Gait, Oriented x3 - Skin Skin Exam: Dry, Intact, Pallor, Warm Assessment and Plan - Assessment and Plan (Free Text) Assessment: The patient is a 55 y/o woman w/ a PMH of HTN, DM type 2, Hypothyroidism, neuropathy, and osteoarthritis presents to the ED with abdominal pain Plan: 1) Sepsis secondary to colitis - patient continues to be afebrile - Day 3: Ciprofloxacin 400 mg IV Q12h - Day 3: metronidazole 500 mg IV Q8 - Zofran 4 mg IV Q 4hrs PRN - Morphine 2 mg IV Q6 prn - IVF KCl 20 meq-NS 90mL/hr - blood culture: (prelim) no growth after 48 hours - transfer to [facility] 2) Epigastric pain - lipase: 141, WNL - Ca2+ 8.3 - Pepcid 20 mg PO BID 3) Diarrhea - incontinent, watery, brown stool - C. diff toxin: negative - C. diff antigen: positive - GI consulted, Dr. Coronado, is aware 4) Hyperglycemia - Insulin dependent DM Type 2 - glucose 177 - HgbA1c: 10.8 (02/2016) - Insulin Levemir 10 units SC HS - Insulin Sliding Scale SC ACHS - hypoglycemia protocol 5) Anemia - Hg 10.2 - reticulocyte count: 1.2 - iron level: 81 - ferritin: 117 - TIBC: 239L - Absolute reticulocyte count: 0.9; hypoproliferation - follow up stool occult blood - anemia of chronic disease 6) Hypothyroidism - levothyroxine 50 mcg PO daily before meals 7) HTN - lisinopril 10 mg PO daily 8) Hx of Major Depression - home medications: quetiapine 600 mg PO HS, mirtazapine 15 mg PO HS - held citalopram 40 mg PO daily 9) Chronic pain (b/l shoulders and lower extremities) - home medication: xanax 0.5 mg PO TID - morphine 2 mg IV Q6h prn - patient follows up with Dr. Sony Colindres for pain management 10) DVT prophylaxis - Lovenox 40 mg SC daily
[2016-06-21] MEDS: oxyCODONE 5 mg Immediate Release Tab PO SCH ×4 (11:11→22:04)
--- NOTE | 2016-06-21 19:13 | CON ---
DATE: 06/21/2016 REFERRING PHYSICIAN: Dr. Baker REASON FOR CONSULTATION: Diarrhea, abdominal pain. This is a marisol 55-year-old female with a history of hypertension, CAD, status post stent, diabetes, hypothyroidism, neuropathy, osteoarthritis who comes in essentially with abdominal pain and discomfo rt, some cramping, some loose bowel movements and diarrhea, all of which is getting better. Initiall y, was 6-7 times a day diarrhea. Now, is down to 3, more formed, but still loose. No fevers, no chi lls. Some cramping. No apparent distress. PAST MEDICAL HISTORY: As above. PAST SURGICAL HISTORY: Includes tonsillectomy, hysterectomy, cholecystectomy, appendectomy, had coli tis in the past as well. MEDICATIONS: Have been reviewed. All other systems have been reviewed and negative apart from the HPI. PHYSICAL EXAMINATION: VITAL SIGNS: Here in the hospital, grossly unremarkable. GENERAL: A pleasant, middle-aged female, lying in bed, comfortable, in no apparent distress. HEAD: Normocephalic, atraumatic. EYES: Pupils equally reactive bilaterally. No conjunctival pallor or icterus. NECK: Supple, normal range of motion. No lymphadenopathy appreciated. LUNGS: Coarse breath sounds bilaterally. HEART: S1, S2, regular rate and rhythm. No murmur, rub appreciated. ABDOMEN: Soft, some discomfort in the left lower quadrant. No rebound, no guarding RECTAL: Deferred. EXTREMITIES: Pulses present bilaterally. SKIN: Warm, dry and intact. NEUROLOGIC: Alert and oriented x 3. All labs and relevant radiology have been reviewed. CAT scan shows a thickening of the sigmoid, like ly colitis. Labs include WBC .7 down to 11.7, hemoglobin 10.2, platelet count is 234. ALT 57, alkaline phosphatase 133. The stool occult was negative. The antigen is positive for C. diff, but t he toxin is negative. I will need to review that. ASSESSMENT AND PLAN: This is a 55-year-old female with a questionable history of Clostridium diffici le, now diarrhea, which is improving. Recommend antibiotics and now repeat the stool antigen, stool toxin for Clostridium difficile. Doing well on diet. Minimize lactose and greasy foods. Can go reji e with antibiotics as per primary care team. Thank you for the consult. Will follow up with me in the office. Albino Ca MD, PhD cc:Claudia Baker MD [id number] TT: 06/21/2016 19:12:35 Confirmation # [id number] Dictation # [id number]
[2016-06-21] MEDS: Insulin Detemir 100 Units/ml Inj SC SCH (21:56)
[2016-06-22] MEDS: metroNIDAZOLE 500mg/100ml NS 100 ML IVPB SCH ×2 (00:23→09:20)
[2016-06-22] MEDS ORDERED: Oxycodone/Acetaminophen 5/325 mg Tab PO ONE (04:13)
[2016-06-22] MEDS: Insulin Regular 100 units/ml SC SCH ×4 (06:31→22:21)
[2016-06-22] MEDS: Levothyroxine 50 MCG TAB PO SCH (06:32)
--- NOTE | 2016-06-22 07:58 | CP.PCM.PN ---
Subjective - Date & Time of Evaluation Date of Evaluation: 06/22/16 Time of Evaluation: 07:10 - Subjective Subjective: The patient is a 55 y/o woman w/ a PMH of HTN, DM type 2, Hypothyroidism, neuropathy, and osteoarthritis presents to the ED with abdominal pain. The patient was seen this morning. The patient is laying in bed and awake. The patient is not in acute distress. The patient reports about 4 incontinent, loose bowel movements. The patient reports that the bowel movements remain brown and watery. The patient denies blood, pale, fatty, greasy, foul-smelling stool. The patient reports the epigastric pain is improved and controlled with medication. The patient tolerated regular dinner last night without any nausea and vomiting. The patient has no other complaints. Objective - Vital Signs/Intake and Output Vital Signs (last 24 hours): Temp Pulse Resp BP Pulse Ox 98.6 F 97 H 18 169/92 H 98 06/22/16 04:56 06/22/16 04:56 06/22/16 04:56 06/22/16 04:56 06/22/16 04:56 - Medications Medications: Current Medications Albuterol (Ventolin Hfa 90 Mcg/Actuation (8 G)) 2 puff IH Q4H PRN PRN Reason: Shortness of Breath Last Admin: 06/20/16 09:29 Dose: 2 puff Alprazolam (Xanax) 0.5 mg PO TID [facility] Last Admin: 06/21/16 16:47 Dose: 0.5 mg Dextrose (Dextrose 50% Inj) 0 ml IVP STAT PRN; Protocol PRN Reason: Hypoglycemia Protocol Last Admin: 06/18/16 19:06 Dose: 50 ml Enoxaparin Sodium (Lovenox) 40 mg SC DAILY [facility] PRN Reason: Protocol Last Admin: 06/21/16 09:28 Dose: 40 mg Famotidine (Pepcid) 20 mg PO BID [facility] Last Admin: 06/21/16 16:47 Dose: 20 mg Glucagon (Glucagen Diagnostic Kit) 0 mg IM STAT PRN; Protocol PRN Reason: Hypoglycemia Protocol Ciprofloxacin (Cipro 400mg/200ml Dsw) 200 mls @ 200 mls/hr IVPB Q12 [facility] Last Admin: 06/21/16 21:57 Dose: 200 mls/hr Metronidazole (Flagyl 500mg/100ml Ns) 100 mls @ 100 mls/hr IVPB Q8 [facility] Last Admin: 06/22/16 00:23 Dose: 100 mls/hr Insulin Detemir (Levemir) 10 units SC [facility] Last Admin: 06/21/16 21:56 Dose: 10 u Insulin Human Regular (Humulin R) 0 units SC ACHS [facility] PRN Reason: Protocol Last Admin: 06/22/16 06:31 Dose: 3 units Levothyroxine Sodium (Synthroid) 50 mcg PO ACB [facility] Last Admin: 06/22/16 06:32 Dose: 50 mcg Lisinopril (Zestril) 10 mg PO DAILY [facility] Last Admin: 06/21/16 09:31 Dose: 10 mg Mirtazapine (Remeron) 15 mg PO [facility] Last Admin: 06/21/16 21:56 Dose: 15 mg Ondansetron HCl (Zofran Inj) 4 mg IVP Q6 PRN PRN Reason: Nausea/Vomiting Oxycodone HCl (Oxycodone Immediate Release Tab) 15 mg PO QID [facility] Last Admin: 06/21/16 22:04 Dose: 15 mg Quetiapine Fumarate (Seroquel) 600 mg PO [facility] Last Admin: 06/21/16 21:56 Dose: 600 mg - Labs Labs: 06/19/16 06:15 06/19/16 06:15 - Constitutional Appears: No Acute Distress - Head Exam Head Exam: ATRAUMATIC, NORMOCEPHALIC - ENT Exam ENT Exam: Mucous Membranes Moist - Respiratory Exam Respiratory Exam: Clear to Ausculation Bilateral. absent: Accessory Muscle Use , Chest Wall Tenderness, Decreased Breath Sounds, Prolonged Expiratory Phase, Rales, Rhonchi, Wheezes, Respiratory Distress, Stridor - Cardiovascular Exam Cardiovascular Exam: REGULAR RHYTHM. absent: Tachycardia - GI/Abdominal Exam GI & Abdominal Exam: Soft, Tenderness, Normal Bowel Sounds. absent: Distended Additional comments: mild epigastric tenderness - Extremities Exam Extremities Exam: Normal Inspection. absent: Calf Tenderness, Tenderness - Neurological Exam Neurological Exam: Alert, Awake, Oriented x3 - Skin Skin Exam: Dry, Intact, Pallor, Warm Assessment and Plan - Assessment and Plan (Free Text) Assessment: The patient is a 55 y/o woman w/ a PMH of HTN, DM type 2, Hypothyroidism, neuropathy, and osteoarthritis presents to the ED with abdominal pain Plan: 1) Sepsis secondary to colitis - patient continues to be afebrile - Day 4: Ciprofloxacin 400 mg IV Q12h - Day 4: metronidazole 500 mg IV Q8 - DC'ed IV cipro and flagyl - started on flagyl 500 mg PO Q8h - Zofran 4 mg IV Q 4hrs PRN - Morphine 2 mg IV Q6 prn - blood culture: (prelim) no growth after 72 hours - transfer to [facility] 2) Epigastric pain - lipase: 141, WNL - Ca2+ 8.3 - Pepcid 20 mg PO BID - diet: low fat, high fiber diet - probiotic: lactobacillus acidophilus 3) Diarrhea - incontinent, watery, brown stool - C. diff toxin: negative - C. diff antigen: positive - GI consulted, Dr. Coronado; recommendations appreciated - follow up repeat C.diff study - no imodium as per GI 4) Hyperglycemia - Insulin dependent DM Type 2 - glucose 230 - HgbA1c: 10.8 (02/2016) - restarted home dose of Insulin Levemir 20 units SC HS - Insulin Sliding Scale SC ACHS - hypoglycemia protocol 5) Anemia - Hg 10.2 - reticulocyte count: 1.2 - iron level: 81 - ferritin: 117 - TIBC: 239L - Absolute reticulocyte count: 0.9; hypoproliferation - stool occult blood: negative - anemia of chronic disease 6) Hypothyroidism - levothyroxine 50 mcg PO daily before meals 7) HTN - lisinopril 10 mg PO daily 8) Hx of Major Depression - home medications: quetiapine 600 mg PO HS, mirtazapine 15 mg PO HS - held citalopram 40 mg PO daily 9) Chronic pain (b/l shoulders and lower extremities) - home medication: xanax 0.5 mg PO TID - morphine 2 mg IV Q6h prn - patient follows up with Dr. Sony Colindres for pain management 10) DVT prophylaxis - Lovenox 40 mg SC daily
[2016-06-22] MEDS: Ciprofloxacin 400mg/200ml D5W 200 ML IVPB SCH (09:21)
[2016-06-22] MEDS: Enoxaparin 40 mg Syringe SC SCH (09:21)
[2016-06-22] MEDS: oxyCODONE 5 mg Immediate Release Tab PO SCH ×4 (10:18→23:33)
[2016-06-22] MEDS: Lactobacillus Acidophilus 500 MU Cap PO SCH ×2 (12:00→16:28)
[2016-06-22 12:48] LABS: BASO # 0.1 K/uL (0.0-0.2); BASO % 0.7 % (0.0-2.0); EOS # 0.1 K/uL (0.0-0.7); EOS % 1.6 % (0.0-4.0); HEMATOCRIT 31.6 % (34.0-47.0); LYMPH # 2.2 K/uL (1.0-4.3); LYMPH % 28.9 % (20.0-40.0); MEAN CELL VOLUME 96.3 fl (81.0-99.0); MEAN CORPUSCULAR HEMOGLOBIN 31.5 pg (27.0-31.0); MEAN CORPUSCULAR HGB CONC 32.7 g/dL (33.0-37.0); MEAN PLATELET VOLUME 8.7 fl (7.2-11.7); MONO # 0.7 K/uL (0.0-0.8); MONO % 9.6 % (0.0-10.0); NEUT # 4.5 K/uL (1.8-7.0); NEUT % 59.2 % (50.0-75.0); RED CELL DISTRIBUTION WIDTH 13.3 % (11.5-14.5); WHITE BLOOD COUNT 7.6 K/uL (4.8-10.8)
--- NOTE | 2016-06-22 12:50 | CP.PCM.PN ---
Subjective - Date & Time of Evaluation Date of Evaluation: 06/22/16 Time of Evaluation: 12:45 - Subjective Subjective: pain and diarrhea present, but improved Objective - Vital Signs/Intake and Output Vital Signs (last 24 hours): Temp Pulse Resp BP Pulse Ox 98.4 F 95 H 18 117/74 97 06/22/16 12:22 06/22/16 12:22 06/22/16 12:22 06/22/16 12:22 06/22/16 12:22 - Medications Medications: Current Medications Albuterol (Ventolin Hfa 90 Mcg/Actuation (8 G)) 2 puff IH Q4H PRN PRN Reason: Shortness of Breath Last Admin: 06/20/16 09:29 Dose: 2 puff Alprazolam (Xanax) 0.5 mg PO TID [facility] Last Admin: 06/22/16 09:20 Dose: 0.5 mg Dextrose (Dextrose 50% Inj) 0 ml IVP STAT PRN; Protocol PRN Reason: Hypoglycemia Protocol Last Admin: 06/18/16 19:06 Dose: 50 ml Enoxaparin Sodium (Lovenox) 40 mg SC DAILY [facility] PRN Reason: Protocol Last Admin: 06/22/16 09:21 Dose: 40 mg Famotidine (Pepcid) 20 mg PO BID [facility] Last Admin: 06/22/16 09:20 Dose: 20 mg Glucagon (Glucagen Diagnostic Kit) 0 mg IM STAT PRN; Protocol PRN Reason: Hypoglycemia Protocol Insulin Detemir (Levemir) 20 units SC HS [facility] Insulin Human Regular (Humulin R) 0 units SC ACHS [facility] PRN Reason: Protocol Last Admin: 06/22/16 06:31 Dose: 3 units Lactobacillus Acidophilus (Bacid Acidophilus) 1 cap PO BID [facility] Last Admin: 06/22/16 12:00 Dose: 1 cap Levothyroxine Sodium (Synthroid) 50 mcg PO ACB [facility] Last Admin: 06/22/16 06:32 Dose: 50 mcg Lisinopril (Zestril) 10 mg PO DAILY [facility] Last Admin: 06/22/16 09:22 Dose: 10 mg Metronidazole (Flagyl) 500 mg PO Q8 [facility] Mirtazapine (Remeron) 15 mg PO HS [facility] Last Admin: 06/21/16 21:56 Dose: 15 mg Ondansetron HCl (Zofran Inj) 4 mg IVP Q6 PRN PRN Reason: Nausea/Vomiting Oxycodone HCl (Oxycodone Immediate Release Tab) 15 mg PO QID [facility] Last Admin: 06/22/16 10:18 Dose: 15 mg Quetiapine Fumarate (Seroquel) 600 mg PO HS [facility] Last Admin: 06/21/16 21:56 Dose: 600 mg - Labs Labs: 06/19/16 06:15 06/19/16 06:15 - Cardiovascular Exam Cardiovascular Exam: REGULAR RHYTHM - GI/Abdominal Exam GI & Abdominal Exam: Soft, Tenderness, Normal Bowel Sounds Assessment and Plan - Assessment and Plan (Free Text) Assessment: 55 yo female with diarrhea cdiff pending advance diet
[2016-06-22 13:03] LABS: BLOOD UREA NITROGEN 14 mg/dl (7-17); CALCIUM 8.5 mg/dL (8.4-10.2); CARBON DIOXIDE 22 mmol/L (22-30); CHLORIDE 105 mmol/L (98-107); GFR AFRICAN-AMERICAN > 60; GLUCOSE,RANDOM 337 mg/dL (65-105); POTASSIUM 3.7 MMOL/L (3.6-5.0); SODIUM 139 mmol/l (132-148)
[2016-06-22] MEDS ORDERED: Insulin Detemir 100 Units/ml Inj SC SCH (22:00)
[2016-06-23] MEDS: Levothyroxine 50 MCG TAB PO SCH (06:37)
[2016-06-23 07:56] VITALS: RESP 18
[2016-06-23] MEDS: Insulin Regular 100 units/ml SC SCH ×2 (08:30→12:44)
[2016-06-23] MEDS: Lactobacillus Acidophilus 500 MU Cap PO SCH (09:02)
[2016-06-23] MEDS: Enoxaparin 40 mg Syringe SC SCH (09:10)
[2016-06-23] MEDS: oxyCODONE 5 mg Immediate Release Tab PO SCH ×2 (11:04→13:54)
--- NOTE | 2016-06-23 11:49 | CP.PCM.DIS ---
Provider - Provider Date of Admission: 06/18/16 12:23 Attending physician: Claudia Baker MD Time Spent in preparation of Discharge (in minutes): 30 Diagnosis - Discharge Diagnosis (1) Colitis Status: Acute (2) Diarrhea Status: Acute Hospital Course - Lab Results Lab Results: Most Recent Lab Values WBC 7.6 K/uL (4.8-10.8) 06/22/16 12:44 RBC 3.28 Mil/uL (3.80-5.20) L 06/22/16 12:44 Hgb 10.3 g/dL (12.0-16.0) L 06/22/16 12:44 Hct 31.6 % (34.0-47.0) L 06/22/16 12:44 MCV 96.3 fl (81.0-99.0) 06/22/16 12:44 MCH 31.5 pg (27.0-31.0) H 06/22/16 12:44 MCHC 32.7 g/dL (33.0-37.0) L 06/22/16 12:44 RDW 13.3 % (11.5-14.5) 06/22/16 12:44 Plt Count 204 K/uL (130-400) 06/22/16 12:44 MPV 8.7 fl (7.2-11.7) 06/22/16 12:44 Neut % (Auto) 59.2 % (50.0-75.0) 06/22/16 12:44 Lymph % (Auto) 28.9 % (20.0-40.0) 06/22/16 12:44 Owen % (Auto) 9.6 % (0.0-10.0) 06/22/16 12:44 Eos % (Auto) 1.6 % (0.0-4.0) 06/22/16 12:44 Baso % (Auto) 0.7 % (0.0-2.0) 06/22/16 12:44 Neut # 4.5 K/uL (1.8-7.0) 06/22/16 12:44 Lymph # 2.2 K/uL (1.0-4.3) 06/22/16 12:44 Owen # 0.7 K/uL (0.0-0.8) 06/22/16 12:44 Eos # 0.1 K/uL (0.0-0.7) 06/22/16 12:44 Baso # 0.1 K/uL (0.0-0.2) 06/22/16 12:44 Retic Count 1.2 % (0.5-1.5) 06/20/16 04:45 pCO2 44 mm/Hg (35-45) 06/18/16 10:40 pO2 88 mm/Hg (80-100) 06/18/16 10:40 HCO3 30.7 mmol/L (21-28) H 06/18/16 10:40 ABG pH 7.47 (7.35-7.45) H 06/18/16 10:40 ABG Total CO2 33.4 mmol/L (22-28) H 06/18/16 10:40 ABG O2 Saturation 96.7 % (95-98) 06/18/16 10:40 ABG Base Excess 7.4 mmol/L (-2.0-3.0) H 06/18/16 10:40 Kayode Test Yes 06/18/16 10:40 ABG Potassium 3.3 mmol/L (3.6-5.2) L 06/18/16 10:40 VBG pH 7.54 (7.32-7.43) H 06/18/16 08:20 VBG pCO2 36 mmHg (40-60) L 06/18/16 08:20 VBG HCO3 30.4 mmol/L 06/18/16 08:20 VBG Total CO2 31.9 mmol/L (22-28) H 06/18/16 08:20 VBG O2 Sat (Calc) 71.3 % (40-65) H 06/18/16 08:20 VBG Base Excess 7.9 mmol/L (0.0-2.0) H 06/18/16 08:20 VBG Potassium 4.5 mmol/L (3.6-5.2) 06/18/16 08:20 A-a O2 Difference 7.0 mm/Hg 06/18/16 10:40 Sodium 145.0 mmol/L (132-148) 06/18/16 10:40 Chloride 111.0 mmol/L (98-107) H 06/18/16 10:40 Glucose 180 mg/dL (65-105) H 06/18/16 10:40 Lactate 2.5 mmol/L (0.7-2.1) H 06/18/16 10:40 FiO2 21.0 % 06/18/16 10:40 Crit Value Called To Dr rafaela duarte 06/18/16 08:20 Crit Value Called By 15 06/18/16 08:20 Crit Value Read Back Y 06/18/16 08:20 Blood Gas Notified Time 823 06/18/16 08:20 Sodium 139 mmol/l (132-148) 06/22/16 12:44 Potassium 3.7 MMOL/L (3.6-5.0) 06/22/16 12:44 Chloride 105 mmol/L (98-107) 06/22/16 12:44 Carbon Dioxide 22 mmol/L (22-30) 06/22/16 12:44 Anion Gap 15 (10-20) 06/22/16 12:44 BUN 14 mg/dl (7-17) 06/22/16 12:44 Creatinine 0.5 mg/dL (0.7-1.2) L 06/22/16 12:44 Est GFR ( Amer) > 60 06/22/16 12:44 Est GFR (Non-Af Amer) > 60 06/22/16 12:44 POC Glucose (mg/dL) 225 mg/dL (65-110) H 06/23/16 05:54 Random Glucose 337 mg/dL (65-105) H 06/22/16 12:44 Lactic Acid 2.9 MMOL/L (0.7-2.1) H 06/18/16 17:13 Calcium 8.5 mg/dL (8.4-10.2) 06/22/16 12:44 Iron 81 ug/dL (37-170) 06/20/16 04:45 TIBC 239 ug/dL (250-450) L 06/20/16 04:45 % Saturation 34 % (20-55) 06/20/16 04:45 Ferritin 117.0 ng/mL 06/20/16 04:45 Total Bilirubin 0.6 mg/dl (0.2-1.3) 06/19/16 06:15 AST 31 U/L (14-36) 06/19/16 06:15 ALT 57 U/L (9-52) H 06/19/16 06:15 Alkaline Phosphatase 133 U/L (38-126) H D 06/19/16 06:15 Total Protein 5.3 G/DL (6.3-8.2) L 06/19/16 06:15 Albumin 2.7 g/dL (3.5-5.0) L D 06/19/16 06:15 Globulin 2.6 gm/dL (2.2-3.9) 06/19/16 06:15 Albumin/Globulin Ratio 1.0 (1.0-2.1) 06/19/16 06:15 Lipase 141 U/L (23-300) 06/18/16 09:27 Arterial Blood Potassium 3.3 mmol/L (3.6-5.2) L 06/18/16 10:40 Venous Blood Potassium 4.5 mmol/L (3.6-5.2) 06/18/16 08:20 Stool Occult Blood Negative (NEGATIVE) 06/21/16 06:45 C. difficile Ag & Toxin Positive antigen (NEGATIVE) 06/21/16 06:45 - Hospital Course Hospital Course: The patient is a 55 y/o woman w/ a PMH of HTN, DM type 2, Hypothyroidism, neuropathy, and osteoarthritis presents to the ED with abdominal pain. The patient was seen in ED and started on IV antibiotics (cipro and vanc) for colitis. Patient had CT abdomen which showed colitis. The patient had sepsis work up due to blood work showing elevated WBC at 20.5 and source of infection; however, blood culture showed no growth. The patient was switched to IV flagyl and cipro was maintained. The patient was switched to PO abx on day 5. The patient has received a total of 6 days of antibiotics. The patient's epigastric pain has improved and managed with pain medication. The patient was also having bowel incontinence with multiple episodes of watery, non-bloody, non -foul smelling, non-greasy, non-pale stool. The diarrhea has improved, C. diff studies were negative for toxin but positive for antigen. GI was consulted and saw patient. The patient will be discharged without need to continue PO antibiotic. The patient is tolerating PO diet with no episodes of nausea and vomiting. The patient has been seen, examined, and deemed medically fit with no contraindication for discharge home. The patient has a scheduled appointment with [facility] on Saturday06/25/2016. The patient is to continue home medication. Discharge Exam - Head Exam Head Exam: ATRAUMATIC, NORMOCEPHALIC - Eye Exam Eye Exam: EOMI Pupil Exam: PERRL - ENT Exam ENT Exam: Mucous Membranes Moist - Respiratory Exam Respiratory Exam: Clear to PA & Lateral. absent: Accessory Muscle Use, Chest Wall Tenderness, Decreased Breath Sounds, Prolonged Expiratory Phase, Rales, Rhonchi, Wheezes, Respiratory Distress, Stridor - Cardiovascular Exam Cardiovascular Exam: REGULAR RHYTHM. absent: Tachycardia - GI/Abdominal Exam GI & Abdominal Exam: Normal Bowel Sounds, Soft. absent: Distended, Tenderness - Extremities Exam Extremities exam: normal inspection, pedal pulses present - Neurological Exam Neurological exam: Alert, Normal Gait, Oriented x3 - Skin Skin Exam: Dry, Intact, Normal Color, Warm Discharge Plan - Follow Up Plan Condition: IMPROVED Disposition: HOME/ ROUTINE Referrals: [facility] [Outside]
[2016-06-23 12:03] VITALS: BP 121/81; PULSE 85; TEMP 98.8; O2SAT 100
[2016-06-23] MEDS ORDERED: Bacitracin OINT 15GM TOP ONE (13:54)
--- NOTE | 2016-06-25 11:07 | PQF SEPSIS ---
Dr. Baker Sepsis is documented throughout chart but not in discharge summary. Was sepsis ruled in or out? This form is a permanent part of the medical record Clarification of your documentation is requested to better reflect the severity of illness and intensity of treatment of your patient. Indicators present [] Temp < 96.8 or > 100.4 [] WBC count > 12,000/mm3 or <000/mm3 or 10% immature neutrophils [] Heart Rate > 90 [] Respiratory Rate > 20 [] Fever or hypothermia [] Chills [] Positive blood cultures [] Hypotension [] Metabolic acidosis (Elevated lactate level, anion gap or reduced blood pH) [] Acute confusion /Altered Mental Status [] Shock [] Other: [] Location in the medical record that reflects the above clinical findings: [] Treatment Provided: [] PHYSICIAN'S RESPONSE Please reassign to Dr. Kimabll thanks Based on your medical judgment of the clinical indicators outlined above, are you treating this patient for a known or suspected: [] Sepsis / Septicemia Please specify organism if known [] [] SIRS (Systemic Inflammatory Response Syndrome) [] Severe Sepsis (Sepsis with Associated Organ Dysfunction) [] Fever of Unknown Origin [] Other, please indicate: [] [] If Unable to Determine, please check the box, sign and date. Present On Admission (POA) Indicator: [] Present at the time of admission [] Not present at the time of admission [] Clinically Undetermined In responding to this query, please exercise your independent professional judgment. The fact that a question is asked does not imply that any particular answer is desired or expected. Thank you for your clarification on this documentation. If you have any questions please call:[ ] * Thank you, [ ]Tasha Lainez lockstitch lining maker TOMASA
--- NOTE | 2016-07-04 10:55 | PQF SEPSIS ---
Dr. Kimball sepsis was documented throughout medical record but not in discharge summary. Was diagnosis of sepsis ruled in or out? This form is a permanent part of the medical record Clarification of your documentation is requested to better reflect the severity of illness and intensity of treatment of your patient. Indicators present [] Temp < 96.8 or > 100.4 [X] WBC count > 12,000/mm3 or <000/mm3 or 10% immature neutrophils [X] Heart Rate > 90 [] Respiratory Rate > 20 [] Fever or hypothermia [X] Chills [] Positive blood cultures [] Hypotension [X] Metabolic acidosis (Elevated lactate level, anion gap or reduced blood pH) [] Acute confusion /Altered Mental Status [] Shock [X] Other: [CT abdomen consistent with colitis. Clinically patient had severe diarrhea.] Location in the medical record that reflects the above clinical findings: [] Treatment Provided: [IV antibiotics given, patient improved with treatment] PHYSICIAN'S RESPONSE Based on your medical judgment of the clinical indicators outlined above, are you treating this patient for a known or suspected: [x] Sepsis / Septicemia Please specify organism if known [] [] SIRS (Systemic Inflammatory Response Syndrome) [] Severe Sepsis (Sepsis with Associated Organ Dysfunction) [] Fever of Unknown Origin [] Other, please indicate: [] [] If Unable to Determine, please check the box, sign and date. Present On Admission (POA) Indicator: [x] Present at the time of admission [] Not present at the time of admission [] Clinically Undetermined In responding to this query, please exercise your independent professional judgment. The fact that a question is asked does not imply that any particular answer is desired or expected. Thank you for your clarification on this documentation. If you have any questions please call:[ ] * Thank you, [ ]Tasha Lainez refund specialist TOMASA
== END 2016-06-23 14:00 | disposition home or self-care (01) | DRG 871 ==
LOC: H.ER 07:02 → H.ERHOLD 12:23 → H.TEL 13:54
PROVIDERS: ADMIT Family Medicine Geriatric Medicine; ATTEND Family Medicine Geriatric Medicine
DX: A41.9 Sepsis, unspecified organism (principal); E11.00 Type 2 diabetes mellitus with hyperosmolarity without nonketotic hyperglycemic-hyperosmolar coma (NKHHC); K52.9 Noninfective gastroenteritis and colitis, unspecified; Z79.4 Long term (current) use of insulin; E03.9 Hypothyroidism, unspecified; G62.9 Polyneuropathy, unspecified; G89.29 Other chronic pain; I10 Essential (primary) hypertension; I25.10 Atherosclerotic heart disease of native coronary artery without angina pectoris; Z95.5 Presence of coronary angioplasty implant and graft; D63.8 Anemia in other chronic diseases classified elsewhere; E11.649 Type 2 diabetes mellitus with hypoglycemia without coma; R10.13 Epigastric pain; R19.7 Diarrhea, unspecified; M19.90 Unspecified osteoarthritis, unspecified site; F17.200 Nicotine dependence, unspecified, uncomplicated; K29.70 Gastritis, unspecified, without bleeding; J45.909 Unspecified asthma, uncomplicated; F32.9 Major depressive disorder, single episode, unspecified; Z88.0 Allergy status to penicillin

== ENCOUNTER 2016-07-24 07:14 | Day surgery (SDC) | payer MEDICARE, MEDICAID ==
[2016-07-24] MEDS ORDERED: Lactated Ringer's 500 ML IV ONE (07:53)
[2016-07-24] MEDS ORDERED: Propofol 10 mg/ml Inj (20 ML) ONE (08:52)
[2016-07-24 09:36] VITALS: TEMP 97; O2SAT 100
[2016-07-24 09:46] VITALS: BP 137/79; PULSE 89; RESP 24
== END 2016-07-24 09:57 | disposition home or self-care (01) ==
LOC: H.ENDO 07:14
PROVIDERS: ATTEND Internal Medicine Gastroenterology
DX: Z12.11 Encounter for screening for malignant neoplasm of colon (principal); E11.9 Type 2 diabetes mellitus without complications; E03.9 Hypothyroidism, unspecified; G62.9 Polyneuropathy, unspecified; M81.0 Age-related osteoporosis without current pathological fracture; K52.9 Noninfective gastroenteritis and colitis, unspecified; K64.8 Other hemorrhoids
CPT/HCPCS: 45378; 88305; J2001; J2704; J7120

== ENCOUNTER 2016-10-05 12:59 | Inpatient (IN) | payer MEDICARE, MEDICAID ==
[2016-10-05 13:00] VITALS: BMI 22.0
[2016-10-05] MEDS ORDERED: Iohexol 240 (50 ml) PO ONE (13:35)
[2016-10-05] MEDS ORDERED: Sodium Chloride 0.9% 1,000 ML IV ONE ×2 (13:42→16:12)
--- NOTE | 2016-10-05 13:55 | ED PDOC ---
HPI:Nausea, Vomiting, Diarrhea Time Seen by Provider: 10/05/16 13:19 Chief Complaint (Nursing): Headache History Per: Patient History/Exam Limitations: no limitations Onset/Duration Of Symptoms: Gradual (1 week worse today) Current Symptoms Are (Timing): Still Present Severity: Moderate Quality Of Discomfort: Cramping Associated Symptoms: Fever, Diarrhea (non bloody). denies: Chills, Nausea, Vomiting, Back Pain, Chest Pain, Constipation, Urinary Symptoms Exacerbating Factors: None Alleviating Factors: None Last Bowel Movement: Today Additional History Per: Patient Additional Complaint(s): similar to c diff in the past, last 6 mo ago no travel or sick contacts Past Medical History Reviewed: Historical Data, Nursing Documentation, Vital Signs Vital Signs: Last Vital Signs Temp 101.5 F H 10/05/16 13:08 Pulse 105 H 10/05/16 13:08 Resp 20 10/05/16 13:08 BP 112/59 L 10/05/16 13:08 Pulse Ox 99 10/05/16 13:08 - Medical History PMH: Anxiety, Asthma, CAD, Depression, Diabetes, Fractures (rib (left)), Gastritis, HTN, Hyperthyroidism (pt is not sure what she has ), Hypothyroidism Denies: Arthritis, CHF, COPD, HIV, Hypercholesterolemia, Rheumatoid Arthritis - Surgical History Surgical History: Appendectomy, Cholecystectomy, Coronary Stent, Endoscopy, Tonsillectomy - Family History Family History: States: Unknown Family Hx - Living Arrangements Living Arrangements: With Family - Immunization History Hx Tetanus Toxoid Vaccination: No Hx Influenza Vaccination: Yes Hx Pneumococcal Vaccination: Yes - Home Medications Home Medications: Ambulatory Orders Medication Instructions Recorded Albuterol HFA [Ventolin HFA 90 2 puff IH Q4H PRN 06/18/16 mcg/actuation (8 g)] Alprazolam [Xanax] 0.5 mg PO TID 06/18/16 Citalopram Hydrobromide 40 mg PO HS 06/18/16 [Citalopram HBr] Insulin Glargine,Hum.rec.anlog 20 units SC HS 06/18/16 [Lantus] Insulin Lispro [humALOG] 18 units SC BRK 06/18/16 Levothyroxine [Synthroid] 50 mcg PO DAILY 06/18/16 Lisinopril [Zestril] 10 mg PO DAILY 06/18/16 Mirtazapine [Remeron] 15 mg PO HS 06/18/16 Insulin Lispro [humALOG] 20 unit SC ACLD 10/05/16 Multivit-Min/FA/Lycopen/Lutein 1 tab PO DAILY 10/05/16 [Centrum Silver Tablet] QUEtiapine [SEROquel] 300 mg PO HS 10/05/16 Simvastatin [Zocor] 40 mg PO HS 10/05/16 oxyCODONE [oxyCODONE Immediate 15 mg PO QID PRN 10/05/16 Release Tab] - Allergies Allergies/Adverse Reactions: Allergies Allergy/AdvReac Type Severity Reaction Status Date / Time Penicillins Allergy RASH Verified 10/05/16 13:07 Review of Systems ROS Statement: Except As Marked, All Systems Reviewed And Found Negative Constitutional: Negative for: Fever, Chills Cardiovascular: Negative for: Chest Pain, Palpitations Respiratory: Negative for: Cough, Shortness of Breath Gastrointestinal: Positive for: Abdominal Pain, Diarrhea. Negative for: Nausea , Vomiting, Constipation, Hematochezia, Hematemesis Genitourinary Female: Negative for: Dysuria, Hematuria, Vaginal Discharge, Pelvic Pain Neurological: Positive for: Headache. Negative for: Weakness, Numbness Physical Exam - Reviewed Nursing Documentation Reviewed: Yes Vital Signs Reviewed: Yes - Physical Exam Appears: Positive for: Uncomfortable Head Exam: Positive for: ATRAUMATIC, NORMAL INSPECTION, NORMOCEPHALIC Eye Exam: Positive for: Normal appearance, EOMI, PERRL Neck: Positive for: Normal, Painless ROM, Supple Cardiovascular/Chest: Positive for: Regular Rate, Rhythm, Chest Non Tender. Negative for: Edema, Gallop Respiratory: Positive for: Normal Breath Sounds. Negative for: Decreased Breath Sounds, Accessory Muscle Use, Crackles, Rales, Rhonchi, Stridor, Wheezing Pulses-Radial (L): 2+ Pulses-Radial (R): 2+ Gastrointestinal/Abdominal: Positive for: Normal Exam, Bowel Sounds, Soft. Negative for: Tenderness Back: Positive for: Normal Inspection. Negative for: L CVA Tenderness, R CVA Tenderness, Vertebral Tenderness, Decreased ROM, Muscle Spasm Extremity: Positive for: Normal ROM. Negative for: Tenderness, Pedal Edema, Calf Tenderness, Capillary Refill, Deformity, Swelling Neurologic/Psych: Positive for: Alert, diagnostic radiologist II-XII, Oriented. Negative for: Motor/Sensory Deficits - Laboratory Results Result Diagrams: 10/05/16 14:43 10/05/16 14:43 - ECG ECG: Positive for: Interpreted By Me ECG Rhythm: Positive for: Normal QRS, Normal ST Segment, Sinus Tachycardia ( rate of 101). Negative for: ST/T Changes O2 Sat by Pulse Oximetry: 99 Pulse Ox Interpretation: Normal - Radiology X-Ray: Interpreted by Me X-Ray Interpretation: Infiltrates (rll, nml cardiac border and nml mediasitnum) - Progress ED Course And Treament: PROCEDURE: CT Abdomen and Pelvis with contrast HISTORY: abd pain poss c diff r/o diveritculitis COMPARISON: 06/18/2016 TECHNIQUE: Contrast dose: 90 mL Omnipaque 300 Radiation dose: Total exam DLP = 261.51 mGy-cm. This CT exam was performed using one or more of the following dose reduction techniques: Automated exposure control, adjustment of the mA and/or kV according to patient size, and/or use of iterative reconstruction technique. FINDINGS: LOWER THORAX: Extensive right lower lobe consolidation. No pleural effusion. LIVER: Unremarkable. No gross lesion or ductal dilatation. GALLBLADDER AND BILE DUCTS: Status post cholecystectomy PANCREAS: Atrophic pancreatic tail. No pancreatic mass. SPLEEN: Multiple accessory splenules. ADRENALS: Unremarkable. No mass. KIDNEYS AND URETERS: 7 mm low-attenuation left lower pole renal mass, likely cyst. No calculus or hydronephrosis. VASCULATURE: Unremarkable. No aortic aneurysm. BOWEL: Congenital non rotation of bowel. Large intestine seen in the left enzo abdomen and majority of small bowel seen in the right abdomen. Mural thickening of the ascending colon not involving the cecum or remainder of the colon. Consistent with nonspecific colitis. In retrospect, the ascending colon was involved with mural thickening on prior CT examination as well, rather than sigmoid colon. APPENDIX: Not identified. No secondary findings to suggest acute appendicitis. PERITONEUM: Unremarkable. No free fluid. No free air. LYMPH NODES: Unremarkable. No enlarged lymph nodes. BLADDER: Unremarkable. REPRODUCTIVE: Status post hysterectomy BONES: No acute fracture. OTHER FINDINGS: None. IMPRESSION: Mural thickening of ascending colon consistent with nonspecific colitis. Congenital non rotation of bowel. Extensive right lower lobe pneumonia. Additional minor findings as above. will admit to obs ms Re-evaluation Time: 18:11 Condition: Improved Disposition - Clinical Impression Clinical Impression: Colitis, Pneumonia - Patient ED Disposition Is Patient to be Admitted: Yes Counseled Patient/Family Regarding: Studies Performed, Diagnosis, Need For Followup - Disposition Disposition: Routine/Home Disposition Time: 17:00 Condition: STABLE - Pt Status Changed To: Hospital Disposition Of: Observation - POA Present On Arrival: Poor Glycemic Control
[2016-10-05 14:50] LABS: BASO # 0.1 K/uL (0.0-0.2); BASO % 0.5 % (0.0-2.0); HEMOGLOBIN 8.9 g/dL (12.0-16.0); LYMPH # 1.1 K/uL (1.0-4.3); LYMPH % 8.7 % (20.0-40.0); MEAN CELL VOLUME 96.2 fl (81.0-99.0); MEAN CORPUSCULAR HEMOGLOBIN 31.3 pg (27.0-31.0); MEAN CORPUSCULAR HGB CONC 32.6 g/dL (33.0-37.0); MEAN PLATELET VOLUME 8.8 fl (7.2-11.7); MONO # 1.3 K/uL (0.0-0.8); NEUT # 9.7 K/uL (1.8-7.0); NEUT % 79.8 % (50.0-75.0); RBC 2.83 Mil/uL (3.80-5.20); RED CELL DISTRIBUTION WIDTH 13.5 % (11.5-14.5); WHITE BLOOD COUNT 12.1 K/uL (4.8-10.8)
[2016-10-05 14:56] LABS: VENOUS BLOOD GAS BASE EXCESS -7.6 mmol/L (0.0-2.0); VENOUS BLOOD GAS PCO2 28 mmHg (40-60); VENOUS BLOOD GAS PO2 38 mm/Hg (30-55); VENOUS BLOOD PH 7.37 (7.32-7.43)
[2016-10-05 14:57] LABS: PLATELET COUNT 229 K/uL (130-400)
[2016-10-05 15:04] LABS: ALBUMIN 3.3 g/dL (3.5-5.0); ALT/SGPT 32 U/L (9-52); AMYLASE 48 U/L (30-110); AST/SGOT 34 U/L (14-36); BLOOD UREA NITROGEN 15 mg/dl (7-17); CALCIUM 8.5 mg/dL (8.4-10.2); GFR AFRICAN-AMERICAN > 60; GFR NON-AFRICAN AMERICAN > 60; LIPASE 30 U/L (23-300)
[2016-10-05] MEDS ORDERED: Insulin Regular 100 units/ml IV STA (16:13)
[2016-10-05] MEDS ORDERED: Iohexol 300 100 ML IJ ONE (16:36)
[2016-10-05] MEDS ORDERED: Sodium Chloride 0.9% 50 ML IV ONE (16:37)
[2016-10-05 16:43] LABS: ANISOCYTOSIS SLIGHT; BANDS 6 % (0-2); LARGE PLATELETS PRESENT; LYMPHOCYTE 10 % (20-50); MICROCYTOSIS SLIGHT; MONOCYTE 13 % (0-10); NEUTROPHIL 71 % (42-75); PLATELET ESTIMATE NORMAL (NORMAL); POIKILOCYTOSIS SLIGHT; TOTAL CELLS COUNTED 100
--- NOTE | 2016-10-05 17:24 | CT ---
PROCEDURE: CT Abdomen and Pelvis with contrast HISTORY: abd pain poss c diff r/o diveritculitis COMPARISON: 06/18/2016 TECHNIQUE: Contrast dose: 90 mL Omnipaque 300 Radiation dose: Total exam DLP = 261.51 mGy-cm. This CT exam was performed using one or more of the following dose reduction techniques: Automated exposure control, adjustment of the mA and/or kV according to patient size, and/or use of iterative reconstruction technique. FINDINGS: LOWER THORAX: Extensive right lower lobe consolidation. No pleural effusion. LIVER: Unremarkable. No gross lesion or ductal dilatation. GALLBLADDER AND BILE DUCTS: Status post cholecystectomy PANCREAS: Atrophic pancreatic tail. No pancreatic mass. SPLEEN: Multiple accessory splenules. ADRENALS: Unremarkable. No mass. KIDNEYS AND URETERS: 7 mm low-attenuation left lower pole renal mass, likely cyst. No calculus or hydronephrosis. VASCULATURE: Unremarkable. No aortic aneurysm. BOWEL: Congenital non rotation of bowel. Large intestine seen in the left enzo abdomen and majority of small bowel seen in the right abdomen. Mural thickening of the ascending colon not involving the cecum or remainder of the colon. Consistent with nonspecific colitis. In retrospect, the ascending colon was involved with mural thickening on prior CT examination as well, rather than sigmoid colon. APPENDIX: Not identified. No secondary findings to suggest acute appendicitis. PERITONEUM: Unremarkable. No free fluid. No free air. LYMPH NODES: Unremarkable. No enlarged lymph nodes. BLADDER: Unremarkable. REPRODUCTIVE: Status post hysterectomy BONES: No acute fracture. OTHER FINDINGS: None. IMPRESSION: Mural thickening of ascending colon consistent with nonspecific colitis. Congenital non rotation of bowel. Extensive right lower lobe pneumonia. Additional minor findings as above.
[2016-10-05] MEDS ORDERED: Insulin Regular 100 units/ml ONE (17:48)
[2016-10-05] MEDS ORDERED: levoFLOXacin 750 mg in D5W 750 MG/150 ML BAG IVPB ONE (18:09)
[2016-10-05] MEDS ORDERED: levoFLOXacin 750 mg in D5W 750 MG/150 ML BAG IVPB STA (18:16)
[2016-10-05 18:23] LABS: URINE BILIRUBIN NEGATIVE (NEGATIVE); URINE BLOOD SMALL (NEGATIVE); URINE CLARITY CLEAR (Clear); URINE COLOR STRAW (YELLOW); URINE GLUCOSE (UA) >=500 mg/dL (Normal); URINE LEUKOCYTE ESTERASE NEG Leu/uL (Negative); URINE NITRATE NEGATIVE (NEGATIVE); URINE PROTEIN 30 mg/dL (NEGATIVE); URINE UROBILINOGEN 0.2-1.0 mg/dL (0.2-1.0)
--- NOTE | 2016-10-05 18:23 | RAD ---
HISTORY: Abdominal pain COMPARISON: 12/23/2014 FINDINGS: LUNGS: No lower lobe infiltrate likely reflective of acute pneumonia. PLEURA: No significant pleural effusion identified, no pneumothorax apparent. CARDIOVASCULAR: No radiographic findings to suggest acute or significant cardiovascular disease. OSSEOUS STRUCTURES: No significant abnormalities. VISUALIZED UPPER ABDOMEN: Normal. OTHER FINDINGS: None. IMPRESSION: Cortical lobe pneumonia. Concordant results with the preliminary interpretation rendered by the emergency department physician procedure.
[2016-10-05] MEDS ORDERED: Albuterol HFA 90 mcg/actuation (8 g) IH PRN (20:07)
[2016-10-05] MEDS ORDERED: Glucagon Recombinant 1 mg Inj IM PRN (20:10)
[2016-10-05] MEDS ORDERED: Dextrose 50% SYRINGE Inj (50 ml) IV PRN (20:10)
[2016-10-05] MEDS ORDERED: Insulin Lispro (humaLOG) 100 Units/ml Inj SC SCH (20:15)
--- NOTE | 2016-10-05 20:16 | CP.PCM.HP ---
History of Present Illness - History of Present Illness History of Present Illness: 55 y/o F with PMH including HTN, IDDM2, Hypothyroidism and Cdif infection in June 2016 presented to ED for evaluation of cough, nausea, vomiting, diarrhea and fatigue. Patient reports 2 weeks of general malaise and decreased appetite which then progressed to vomiting and diarrhea 1 week ago. Since then, patient has been experiencing intermittent non-bloody emesis and 3 episodes of loose, foul-smelling, non-bloody stool daily. She also reports a dry, non-productive cough over the same period of time. She has associated fever but denies chest pain or SOB. Approximately 1 week ago patient decided to completely stop taking her prescribed insulin due to decreased appetite however she reports still consuming 3 glucerna shakes daily in addition to cheri-jose and chicken broth. Patient decided to present to ED because her son "made her." She denies recent sick contacts, travel or antibiotic use. PMD: [facility] Seaman Officer: Dr Faraz Calle Mgmt: Dr Sony Colindres Present on Admission - Present on Admission Any Indicators Present on Admission: Yes History of DVT/PE: No History of Uncontrolled Diabetes: Yes Urinary Catheter: No Decubitus Ulcer Present: No Past Patient History - Infectious Disease Hx of Infectious Diseases: C.diff - Past Medical History & Family History Past Medical History?: Yes - Past Social History Smoking Status: Light Smoker < 10 Cigarettes Daily (5 cig per day) Alcohol: None Drugs: Denies Home Situation {Lives}: With Family (lives with son) - CARDIAC Hx Congestive Heart Failure: No Hx Hypertension: Yes - PULMONARY Hx Asthma: Yes Hx Chronic Obstructive Pulmonary Disease (COPD): No - NEUROLOGICAL Hx Neurological Disorder: Yes (Diabetic neuropathy) - ENDOCRINE/METABOLIC Hx Diabetes Mellitus Type 2: Yes (Insulin dependent) Hx Hypothyroidism: Yes - HEMATOLOGICAL/ONCOLOGICAL Hx Human Immunodeficiency Virus (HIV): No - MUSCULOSKELETAL/RHEUMATOLOGICAL Hx Arthritis: No Hx Fractures: Yes (rib (left)) Hx Rheumatoid Arthritis: No - GASTROINTESTINAL Hx Clostridium Difficile: Yes (June 2016) Hx Gastritis: Yes - GENITOURINARY/GYNECOLOGICAL Hx Genitourinary Disorders: No - PSYCHIATRIC Hx Anxiety: Yes Hx Depression: Yes - SURGICAL HISTORY Hx Appendectomy: Yes Hx Cholecystectomy: Yes Hx Coronary Stent: Yes Hx Tonsillectomy: Yes - ANESTHESIA Hx Anesthesia: Yes Hx Anesthesia Reactions: No Hx Malignant Hyperthermia: No Meds Allergies/Adverse Reactions: Allergies Allergy/AdvReac Type Severity Reaction Status Date / Time Penicillins Allergy RASH Verified 10/05/16 13:07 Physical Exam - Constitutional Appears: Other (Appears ill, uncomfortable) - Head Exam Head Exam: ATRAUMATIC - Eye Exam Eye Exam: EOMI, PERRL - ENT Exam ENT Exam: Mucous Membranes Dry - Respiratory Exam Additional comments: B/L air entry present with crackles appreciated at right lung base. No wheezes or rhonchii audible. No signs of respiratory distress. - Cardiovascular Exam Cardiovascular Exam: Tachycardia, REGULAR RHYTHM, +S1, +S2 - GI/Abdominal Exam GI & Abdominal Exam: Hyperactive Bowel Sounds, Soft, Tenderness (Mild diffuse tenderness). absent: Distended, Guarding, Rebound - Extremities Exam Extremities exam: Negative for: calf tenderness, pedal edema - Neurological Exam Neurological exam: Alert, Oriented x3 - Psychiatric Exam Psychiatric exam: Normal Affect, Normal Mood - Skin Skin Exam: Dry, Warm Results - Vital Signs Recent Vital Signs: Last Vital Signs Temp 98.1 F 10/05/16 18:43 Pulse 100 H 10/05/16 18:43 Resp 20 10/05/16 18:43 BP 119/71 10/05/16 18:43 Pulse Ox 99 10/05/16 18:41 - Labs Result Diagrams: 10/05/16 14:43 10/05/16 14:43 Labs: Laboratory Results - last 24 hr 10/05/16 18:13 Urine Color Straw Urine Clarity Clear Urine pH 6.0 Ur Specific Hilger 1.018 Urine Protein 30 Urine Glucose (UA) >=500 Urine Ketones 20 Urine Blood Small Urine Nitrate Negative Urine Bilirubin Negative Urine Urobilinogen 0.2-1.0 Ur Leukocyte Esterase Neg Urine RBC (Auto) 1 Urine Microscopic WBC 1 Assessment & Plan - Assessment and Plan (Free Text) Assessment: 55 y/o F with PMH including HTN, IDDM2, Hypothyroidism and Cdif infection in June 2016 presented to ED for evaluation of cough, nausea, vomiting, diarrhea and fatigue. Patient subsequently admitted with evidence of Right lower lobe pneumonia and Colitis. Plan: Colitis -Undetermined etiology. History of C Dif in June 2016 -CT abdomen w/ PO & IV contrast detected mural thickening of ascending colon consistent with non-specific colitis -Contact Isolation Protocol -Stool culture and Cdiff toxin pending -Will start flagyl 500mg IV Q8h -Zofran 4mg IV Q6h PRN nausea -NPO Right Lower Lobe Pneumonia, community acquired -Patient febrile at 101.0, WBC: 12.1 -CXR detects right lower lobe infiltrate -Levofloxacin 750mg IV started in ED -Will continue with Levofloxacin 750mg IV daily Sepsis -Temp: 101.0, Tachycardia: 100 -Associated with leukocytosis of 12.1 -Etiology related to colitis vs pneumonia -Lactate normal at 1.0 -Not severe sepsis or septic shock -Urine culture, blood culture pending -1.5L IVF bolus given in ED. Will administer additional 1L NS. -Receiving levofloxacin 750mg IV daily + flagyl 500mg IV Q8H Insulin Dependent Diabetes Mellitus, Type 2, with hyperglycemia -Patient had not been adherent to insulin regimen as prescribed -Initial blood glucose in ED: 476 -6units IV regular insulin given in ED -pH WNL. Anion gap <20 -Levemir 20units SC HS -Humalog 18units SC ACB, 20units SC ACLD -Accuchecks ACHS -Hypoglycemia protocol Anemia, undetermined etiology -H/H: 8.9/27.2. MCV: 96.2 -Decreased from prior study: 12.7/37.5 on 07/04/16 -Colonoscopy performed on 07/24/16 normal other than non-bleeding internal hemorrhoids -FOBT ordered -Vit B12, Folate, Retic count, Iron studies ordered Hypothyroidism -Last TSH: 1.27 on 07/04/16 -Continue 50mcg PO daily Anxiety d/o -Taking xanax 0.5mg PO TID -Well controlled DVT Prophylaxis -Lovenox 40mg SC daily
[2016-10-05] MEDS: Potassium Ch 20mEq in D5-1/2NS 1,000 ML IV SCH (21:06)
[2016-10-05] MEDS: Insulin Detemir 100 Units/ml Inj SC SCH (22:33)
[2016-10-05] MEDS: Insulin Regular 100 units/ml SC SCH (22:49)
[2016-10-06] MEDS: Sodium Chloride 0.9% 1,000 ML IV SCH ×8 (00:50→21:29)
[2016-10-06] MEDS: metroNIDAZOLE 500mg/100ml NS 100 ML IVPB SCH ×3 (01:36→16:02)
[2016-10-06] MEDS: Levothyroxine 50 MCG TAB PO SCH (06:34)
[2016-10-06] MEDS: Potassium Ch 20mEq in D5-1/2NS 1,000 ML IV SCH (06:36)
[2016-10-06] MEDS: Insulin Regular 100 units/ml SC SCH ×4 (07:29→21:36)
[2016-10-06 07:42] LABS: MEAN CELL VOLUME 93.7 fl (81.0-99.0); MEAN CORPUSCULAR HEMOGLOBIN 32.3 pg (27.0-31.0); MEAN CORPUSCULAR HGB CONC 34.5 g/dL (33.0-37.0); RBC 2.48 Mil/uL (3.80-5.20); RED CELL DISTRIBUTION WIDTH 13.3 % (11.5-14.5); WHITE BLOOD COUNT 10.6 K/uL (4.8-10.8)
[2016-10-06 07:50] LABS: IRON 22 ug/dL (37-170)
[2016-10-06 07:53] LABS: BLOOD UREA NITROGEN 10 mg/dl (7-17); CALCIUM 7.9 mg/dL (8.4-10.2); GFR AFRICAN-AMERICAN > 60; GFR NON-AFRICAN AMERICAN > 60
[2016-10-06 08:02] LABS: % IRON SATURATION 13 % (20-55); TOTAL IRON BINDING CAPACITY 172 ug/dL (250-450)
[2016-10-06] MEDS: Insulin Lispro (humaLOG) 100 Units/ml Inj SC SCH (08:32)
[2016-10-06] MEDS: levoFLOXacin 750 mg in D5W 750 MG/150 ML BAG IVPB SCH (08:34)
[2016-10-06] MEDS: Enoxaparin 40 mg Syringe SC SCH (08:34)
[2016-10-06] MEDS ORDERED: levoFLOXacin 750 mg in D5W 750 MG/150 ML BAG IVPB SCH (09:00)
[2016-10-06] MEDS ORDERED: levoFLOXacin 750 mg in D5W 150 ML BAG IVPB SCH (09:00)
[2016-10-06] MEDS ORDERED: Potassium Chloride 20 mEq ER Tab PO ONE (10:44)
--- NOTE | 2016-10-06 11:50 | CP.PCM.PN ---
Subjective - Date & Time of Evaluation Date of Evaluation: 10/06/16 Time of Evaluation: 09:30 - Subjective Subjective: Pt. seen and examined at bedside. Pt. reports feeling weak and tired. Pt. reports cough is still present. No events overnight. On ROS, pt. denies any chest pain, shortness of breath, abdominal pian, headache, or lightheadedness. Objective - Vital Signs/Intake and Output Vital Signs (last 24 hours): Temp Pulse Resp BP Pulse Ox 98.8 F 97 H 20 99/64 L 95 10/06/16 11:22 10/06/16 11:22 10/06/16 11:22 10/06/16 11:22 10/06/16 11:22 - Medications Medications: Current Medications Acetaminophen (Tylenol 325mg Tab) 650 mg PO Q6 PRN PRN Reason: Fever >100.4 F Last Admin: 10/06/16 04:18 Dose: 650 mg Albuterol (Ventolin Hfa 90 Mcg/Actuation (8 G)) 2 puff IH Q4H PRN PRN Reason: Shortness of Breath Alprazolam (Xanax) 0.5 mg PO TID COUNTS INCLUDE 234 BEDS AT THE [facility] Last Admin: 10/06/16 08:40 Dose: 0.5 mg Dextrose (Dextrose 50% Inj) 0 ml IV STAT PRN; Protocol PRN Reason: Hyglycemia Protocol Dextrose (Glutose 15) 0 gm PO ONCE PRN; Protocol PRN Reason: Hypoglycemia Protocol Enoxaparin Sodium (Lovenox) 40 mg SC DAILY [facility] PRN Reason: Protocol Last Admin: 10/06/16 08:34 Dose: 40 mg Glucagon (Glucagen Diagnostic Kit) 0 mg IM STAT PRN; Protocol PRN Reason: Hypoglycemia Protocol Potassium Chloride/Dextrose/Sod Cl (Potassium Chl 20 Meq In D5-1/2ns) 1,000 mls @ 100 mls/hr IV .Q10H [facility] Stop: 10/06/16 20:27 Last Admin: 10/06/16 06:36 Dose: Not Given Sodium Chloride (Sodium Chloride 0.9%) 1,000 mls @ 999 mls/hr IV .Q1H1M [facility] Stop: 10/07/16 00:21 Last Admin: 10/06/16 06:35 Dose: Not Given Metronidazole (Flagyl 500mg/100ml Ns) 100 mls @ 100 mls/hr IVPB Q8 COUNTS INCLUDE 234 BEDS AT THE [facility] Last Admin: 10/06/16 08:33 Dose: 100 mls/hr Levofloxacin/Dextrose (Levaquin 750mg) 750 mg in 150 mls @ 150 mls/hr IVPB DAILY COUNTS INCLUDE 234 BEDS AT THE [facility] Last Admin: 10/06/16 08:34 Dose: 150 mls/hr Insulin Detemir (Levemir) 20 units SC HS COUNTS INCLUDE 234 BEDS AT THE [facility] Last Admin: 10/05/16 22:33 Dose: 20 units Insulin Human Lispro (Humalog) 20 units SC ACLD COUNTS INCLUDE 234 BEDS AT THE [facility] Insulin Human Lispro (Humalog) 18 units SC BRK COUNTS INCLUDE 234 BEDS AT THE [facility] Last Admin: 10/06/16 08:32 Dose: Not Given Insulin Human Regular (Humulin R) 0 units SC ACHS COUNTS INCLUDE 234 BEDS AT THE [facility] PRN Reason: Protocol Last Admin: 10/06/16 11:28 Dose: Not Given Levothyroxine Sodium (Synthroid) 50 mcg PO DAILY@0630 COUNTS INCLUDE 234 BEDS AT THE [facility] Last Admin: 10/06/16 06:34 Dose: 50 mcg Lisinopril (Zestril) 10 mg PO DAILY COUNTS INCLUDE 234 BEDS AT THE [facility] Last Admin: 10/06/16 08:43 Dose: 10 mg Mirtazapine (Remeron) [address] [facility] Last Admin: 10/05/16 22:32 Dose: 15 mg Ondansetron HCl (Zofran Inj) 4 mg IVP Q6 PRN PRN Reason: Nausea/Vomiting Quetiapine Fumarate (Seroquel) [address] [facility] Last Admin: 10/05/16 22:32 Dose: 300 mg - Labs Labs: 10/06/16 05:30 10/06/16 05:30 - Constitutional Appears: Other (Appearrs Sick ) - Head Exam Head Exam: ATRAUMATIC, NORMOCEPHALIC - Eye Exam Additional comments: conjunctival pallor - Neck Exam Neck Exam: Full ROM - Respiratory Exam Additional comments: Bi-basilar Rhonchi worse on the Right side, Diminished ispiration at lung bases greatedr on right than left. - Extremities Exam Extremities Exam: Normal Inspection. absent: Calf Tenderness Additional comments: Musculoskeltal Left lower leg weakness. - Neurological Exam Neurological Exam: Alert, Awake Assessment and Plan - Assessment and Plan (Free Text) Assessment: 55 y/o F with PMH including HTN, IDDM2, Hypothyroidism and Cdif infection in June 2016 presented to ED for evaluation of cough, nausea, vomiting, diarrhea and fatigue. Patient subsequently admitted with evidence of Right lower lobe pneumonia and Colitis. Plan: Colitis-CT abdomen w/ PO & IV contrast detected mural thickening of ascending colon consistent with non-specific colitis, Undetermined etiology. History of C Dif in June 2016, I.D. input Dr. Nowak appreciated -C. Diff and stool cultures pending -NPO -I.V. Fluids -Contact Isolation Protocol -Continue flagyl 500mg IV Q8h -Zofran 4mg IV Q6h PRN nausea -NPO Right Lower Lobe Pneumonia, community acquired- I.D. input Dr. Nowak appreciated -CXR detects right lower lobe infiltrate -Continue with Levofloxacin 750mg IV daily Sepsis- I.D. input Dr. Nowak appreciated -Urine culture, blood culture pending -Receiving levofloxacin 750mg IV daily + flagyl 500mg IV Q8H Insulin Dependent Diabetes Mellitus, Type 2, with hyperglycemia -Patient had not been adherent to insulin regimen as prescribed -Initial blood glucose in ED: 476 -6units IV regular insulin given in ED -pH WNL. Anion gap <20 -Levemir 20units SC HS -Humalog 18units SC ACB, 20units SC ACLD -Accuchecks ACHS -Hypoglycemia protocol Anemia, undetermined etiology -H/H: 8.9/27.2. MCV: 96.2 -Decreased from prior study: 12.7/37.5 on 07/04/16 -Colonoscopy performed on 07/24/16 normal other than non-bleeding internal hemorrhoids -FOBT- Pending -Vit B12, Folate, Retic count, Iron studies ordered Hypothyroidism -Last TSH: 1.27 on 07/04/16 -Continue 50mcg PO daily Anxiety d/o -Taking xanax 0.5mg PO TID -Well controlled DVT Prophylaxis -Lovenox 40mg SC daily
--- NOTE | 2016-10-06 14:19 | CARD ---
APPROVED REPORT EKG Measurement Heart [id number] <Conclusion> Sinus tachycardia Biatrial enlargement Possible septal infarct, age undetermined Abnormal ECG
[2016-10-06 17:33] LABS: FOLATE > 20.0 ng/mL
--- NOTE | 2016-10-06 18:27 | CP.PCM.PN ---
Subjective - Date & Time of Evaluation Date of Evaluation: 10/06/16 Time of Evaluation: 18:20 - Subjective Subjective: I D NOTE Patient examined,chart reviewed full consult dictated continue same rx if c.diff is cultured and ,or diarrhea will addpo vancomycin Objective - Vital Signs/Intake and Output Vital Signs (last 24 hours): Temp Pulse Resp BP Pulse Ox 99.9 F H 103 H 20 127/79 98 10/06/16 16:11 10/06/16 15:48 10/06/16 15:48 10/06/16 15:48 10/06/16 15:48 - Medications Medications: Current Medications Acetaminophen (Tylenol 325mg Tab) 650 mg PO Q6 PRN PRN Reason: Fever >100.4 F Last Admin: 10/06/16 15:12 Dose: 650 mg Albuterol (Ventolin Hfa 90 Mcg/Actuation (8 G)) 2 puff IH Q4H PRN PRN Reason: Shortness of Breath Alprazolam (Xanax) 0.5 mg PO TID [facility] Last Admin: 10/06/16 16:02 Dose: 0.5 mg Dextrose (Dextrose 50% Inj) 0 ml IV STAT PRN; Protocol PRN Reason: Hyglycemia Protocol Dextrose (Glutose 15) 0 gm PO ONCE PRN; Protocol PRN Reason: Hypoglycemia Protocol Enoxaparin Sodium (Lovenox) 40 mg SC DAILY [facility] PRN Reason: Protocol Last Admin: 10/06/16 08:34 Dose: 40 mg Glucagon (Glucagen Diagnostic Kit) 0 mg IM STAT PRN; Protocol PRN Reason: Hypoglycemia Protocol Sodium Chloride (Sodium Chloride 0.9%) 1,000 mls @ 999 mls/hr IV .Q1H1M [facility] Stop: 10/07/16 00:21 Last Admin: 10/06/16 06:35 Dose: Not Given Metronidazole (Flagyl 500mg/100ml Ns) 100 mls @ 100 mls/hr IVPB Q8 [facility] Last Admin: 10/06/16 16:02 Dose: 100 mls/hr Levofloxacin/Dextrose (Levaquin 750mg) 750 mg in 150 mls @ 150 mls/hr IVPB DAILY [facility] Last Admin: 10/06/16 08:34 Dose: 150 mls/hr Sodium Chloride (Sodium Chloride 0.9%) 1,000 mls @ 150 mls/hr IV .Q6H40M [facility] Stop: 10/07/16 12:43 Last Admin: 10/06/16 13:36 Dose: 150 mls/hr Insulin Detemir (Levemir) 20 units SC HS [facility] Last Admin: 10/05/16 22:33 Dose: 20 units Insulin Human Lispro (Humalog) 20 units SC ACLD [facility] Insulin Human Lispro (Humalog) 18 units SC BRK [facility] Last Admin: 10/06/16 08:32 Dose: Not Given Insulin Human Regular (Humulin R) 0 units SC ACHS [facility] PRN Reason: Protocol Last Admin: 10/06/16 16:21 Dose: Not Given Levothyroxine Sodium (Synthroid) 50 mcg PO DAILY@0630 [facility] Last Admin: 10/06/16 06:34 Dose: 50 mcg Lisinopril (Zestril) 10 mg PO DAILY [facility] Last Admin: 10/06/16 08:43 Dose: 10 mg Mirtazapine (Remeron) 15 mg PO [facility] Last Admin: 10/05/16 22:32 Dose: 15 mg Ondansetron HCl (Zofran Inj) 4 mg IVP Q6 PRN PRN Reason: Nausea/Vomiting Quetiapine Fumarate (Seroquel) 300 mg PO [facility] Last Admin: 10/05/16 22:32 Dose: 300 mg - Labs Labs: 10/06/16 05:30 10/06/16 05:30
[2016-10-06] MEDS: Insulin Detemir 100 Units/ml Inj SC SCH (21:31)
[2016-10-07] MEDS: metroNIDAZOLE 500mg/100ml NS 100 ML IVPB SCH ×3 (00:24→16:46)
--- NOTE | 2016-10-07 01:04 | CON ---
DATE: 10/06/2016 INFECTIOUS DISEASE CONSULT The patient is in room [address] HISTORY OF PRESENT ILLNESS: She is a 55-year-old female with past medical history that includes IDDM2, hypothyroidism, hypertension and also had a C. diff infection in June of this year. She came into emergency room with a cough and diarrhea and fatigue. She stated to me that she has 2 weeks of general malaise and decreased appetite. Subsequently, started having diarrhea about a week ago. She has had fowl smelling loose nonbloody stools daily. When I examined, she told me that she had had diarrhea three times over the past 2 hours. She states she has fever, but no chest pain or shortness of breath. She apparently has not been taking her hypoglycemic agents. The patient came from ER for evaluation where she was admitted. PAST MEDICAL HISTORY: She has again history of diabetes, C. diff, occasional smoker, social alcohol, chronic obstructive pulmonary disease, and diabetic neuropathy. She also has a history of anxiety. PAST SURGICAL HISTORY: Surgically, has had an appendectomy, cholecystectomy, a coronary stent. PHYSICAL EXAMINATION GENERAL: The patient is alert, cooperative, and oriented to time and place and appears ill. HEENT: Within normal limits. NECK: Supple. LUNGS: There is some markedly decreased breath sounds at the right base and has some rhonchi at the right base. HEART: Regular sinus rhythm. ABDOMEN: She has hyperactive bowel sounds and she is tender, especially in the right and left upper quadrant areas with some guarding, no rebound. EXTREMITIES: No CCE. LABORATORY DATA: White count is 12.1, hemoglobin 8. Creatinine is 0.8 and GFR is greater than 60. Chest x-ray shows a right lower lobe pneumonia. CT scan of the abdomen and pelvis shows mural thickening of ascending colon consistent with nonspecific colitis, congenital nonrotation of bowel, extensive right lower lobe pneumonia. IMPRESSION: 1. Colitis, rule out Clostridium difficile enterocolitis. 2. Right lower lobe pneumonia. 3. Diabetes. 4. Hypertension. 5. Coronary artery disease. 6. Chronic obstructive pulmonary disease. PLAN: For present time, agree with the treatment with Flagyl and Levaquin. We will change depending on cultures and upon the patient's clinical response. Germain Rice MD [facility]
[2016-10-07] MEDS: Sodium Chloride 0.9% 1,000 ML IV SCH (02:29)
[2016-10-07] MEDS: Levothyroxine 50 MCG TAB PO SCH (06:28)
[2016-10-07] MEDS: Insulin Regular 100 units/ml SC SCH ×3 (06:34→21:55)
[2016-10-07 07:27] LABS: BLOOD UREA NITROGEN 7 mg/dl (7-17); CALCIUM 8.7 mg/dL (8.4-10.2); GFR AFRICAN-AMERICAN > 60; GFR NON-AFRICAN AMERICAN > 60; HEMOGLOBIN 9.3 g/dL (12.0-16.0); MEAN CELL VOLUME 95.2 fl (81.0-99.0); MEAN CORPUSCULAR HEMOGLOBIN 32.3 pg (27.0-31.0); MEAN CORPUSCULAR HGB CONC 33.9 g/dL (33.0-37.0); RBC 2.87 Mil/uL (3.80-5.20); RED CELL DISTRIBUTION WIDTH 14.1 % (11.5-14.5); WHITE BLOOD COUNT 9.3 K/uL (4.8-10.8)
[2016-10-07] MEDS: Insulin Lispro (humaLOG) 100 Units/ml Inj SC SCH (08:37)
[2016-10-07] MEDS: Enoxaparin 40 mg Syringe SC SCH (08:38)
[2016-10-07] MEDS: Potassium CL 10mEq/100ml 100 ML IVPB SCH ×3 (09:45→10:47)
[2016-10-07] MEDS: levoFLOXacin 750 mg in D5W 750 MG/150 ML BAG IVPB SCH (10:45)
[2016-10-07] MEDS ORDERED: Potassium Chloride 20 mEq ER Tab PO ONE (10:48)
--- NOTE | 2016-10-07 14:53 | CP.PCM.PN ---
Subjective - Date & Time of Evaluation Date of Evaluation: 10/07/16 Time of Evaluation: 10:10 - Subjective Subjective: Pt. seen and examined at bedside. Pt. with no complaints at this time. Pt does state that I.V. "burnett." K-run discontinue. Pt. reports relief. Overnight uneventful. Pt. states she still has cough and diarrhea but improving. Pt. tolerating diet. On ROS, pt. denies any headache, chest pain, shortness of breath. Objective - Vital Signs/Intake and Output Vital Signs (last 24 hours): Temp Pulse Resp BP Pulse Ox 97.5 F L 90 18 122/74 96 10/07/16 07:34 10/07/16 07:34 10/07/16 07:34 10/07/16 08:47 10/07/16 07:34 - Medications Medications: Current Medications Acetaminophen (Tylenol 325mg Tab) 650 mg PO Q6 PRN PRN Reason: Fever >100.4 F Last Admin: 10/07/16 00:32 Dose: 650 mg Albuterol (Ventolin Hfa 90 Mcg/Actuation (8 G)) 2 puff IH Q4H PRN PRN Reason: Shortness of Breath Alprazolam (Xanax) 0.5 mg PO TID [facility] Last Admin: 10/07/16 13:20 Dose: 0.5 mg Dextrose (Dextrose 50% Inj) 0 ml IV STAT PRN; Protocol PRN Reason: Hyglycemia Protocol Dextrose (Glutose 15) 0 gm PO ONCE PRN; Protocol PRN Reason: Hypoglycemia Protocol Enoxaparin Sodium (Lovenox) 40 mg SC DAILY [facility] PRN Reason: Protocol Last Admin: 10/07/16 08:38 Dose: 40 mg Glucagon (Glucagen Diagnostic Kit) 0 mg IM STAT PRN; Protocol PRN Reason: Hypoglycemia Protocol Metronidazole (Flagyl 500mg/100ml Ns) 100 mls @ 100 mls/hr IVPB Q8 [facility] Last Admin: 10/07/16 08:35 Dose: 100 mls/hr Levofloxacin/Dextrose (Levaquin 750mg) 750 mg in 150 mls @ 100 mls/hr IVPB DAILY [facility] Insulin Detemir (Levemir) 20 units SC HS [facility] Last Admin: 10/06/16 21:31 Dose: 20 units Insulin Human Lispro (Humalog) 20 units SC ACLD [facility] Insulin Human Lispro (Humalog) 18 units SC BRK [facility] Last Admin: 10/07/16 08:37 Dose: Not Given Insulin Human Regular (Humulin R) 0 units SC ACHS [facility] PRN Reason: Protocol Last Admin: 10/07/16 11:41 Dose: Not Given Levothyroxine Sodium (Synthroid) 50 mcg PO DAILY@0630 [facility] Last Admin: 10/07/16 06:28 Dose: 50 mcg Lisinopril (Zestril) 10 mg PO DAILY [facility] Last Admin: 10/07/16 08:47 Dose: 10 mg Mirtazapine (Remeron) 15 mg PO HS [facility] Last Admin: 10/06/16 21:30 Dose: 15 mg Ondansetron HCl (Zofran Inj) 4 mg IVP Q6 PRN PRN Reason: Nausea/Vomiting Quetiapine Fumarate (Seroquel) 300 mg PO HS [facility] Last Admin: 10/06/16 21:30 Dose: 300 mg - Labs Labs: 10/07/16 05:30 10/07/16 05:30 - Constitutional Appears: Non-toxic, No Acute Distress - Eye Exam Eye Exam: Normal appearance. absent: Scleral icterus - Respiratory Exam Additional comments: Bi-basilar rales greater on RT lung base compared to LT lung base - Cardiovascular Exam Cardiovascular Exam: REGULAR RHYTHM, +S1, +S2 - GI/Abdominal Exam GI & Abdominal Exam: Soft. absent: Tenderness - Extremities Exam Extremities Exam: Normal Capillary Refill, Normal Inspection - Neurological Exam Neurological Exam: Alert, Awake, Oriented x3 - Psychiatric Exam Psychiatric exam: Anxious Assessment and Plan - Assessment and Plan (Free Text) Assessment: 55 y/o F with PMH including HTN, IDDM2, Hypothyroidism and Cdif infection in June 2016 admitted for Right lower lobe pneumonia and Colitis. Plan: Colitis-CT abdomen w/ PO & IV contrast detected mural thickening of ascending colon consistent with non-specific colitis, Undetermined etiology. History of C Dif in June 2016, I.D. input Dr. Nowak appreciated -C. Diff Negative -Continue flagyl 500mg IV Q8h -Zofran 4mg IV Q6h PRN nausea -Stool cultures- pending Hypokalemia- 2.9 K+ -I.V. Fluids with KCL 20meq -Repeat BMP Right Lower Lobe Pneumonia, community acquired- I.D. input Dr. Nowak appreciated -Continue with Levofloxacin 750mg IV daily -HIV 1&2 ABX pending Sepsis- I.D. input Dr. Nowak appreciated -Urine culture- contaminated will get straight cath urine culture -Blood culture Pending -Receiving levofloxacin 750mg IV daily + flagyl 500mg IV Q8H continue current ABX as per I.D. Insulin Dependent Diabetes Mellitus, Type 2, with hyperglycemia -Levemir 20units SC HS -Humalog 18units SC ACB, 20units SC ACLD -Accuchecks ACHS -Hypoglycemia protocol Anemia, undetermined etiology- FOBT positive -Will repeat FOBT currently hemodynamically stable, will get orthostatics, currently asymptomatic -Colonoscopy performed on 07/24/16 normal other than non-bleeding internal hemorrhoids -FOBT- Positive -Vit B12, Folate, Retic count, Iron studies ordered Hypothyroidism -Last TSH: 1.27 on 07/04/16 -Continue 50mcg PO daily Anxiety d/o -Taking xanax 0.5mg PO TID -Well controlled DVT Prophylaxis -Lovenox 40mg SC daily
[2016-10-07] MEDS ORDERED: Insulin Lispro (humaLOG) 100 Units/ml Inj SC SCH (14:58)
[2016-10-07] MEDS: Potassium Chl 20 mEq in NS 1,000 ML IV SCH (16:43)
[2016-10-07] MEDS: Insulin Detemir 100 Units/ml Inj SC SCH (21:43)
[2016-10-08] MEDS: Potassium Chl 20 mEq in NS 1,000 ML IV SCH ×2 (04:46→21:43)
[2016-10-08] MEDS: Levothyroxine 50 MCG TAB PO SCH (05:38)
[2016-10-08] MEDS: metroNIDAZOLE 500mg/100ml NS 100 ML IVPB SCH ×3 (08:29→17:13)
[2016-10-08] MEDS: Saccharomyces Boulardi 250 mg Cap PO SCH ×2 (08:30→17:14)
[2016-10-08] MEDS: Insulin Regular 100 units/ml SC SCH ×4 (08:31→22:43)
[2016-10-08] MEDS: Insulin Lispro (humaLOG) 100 Units/ml Inj SC SCH (08:31)
[2016-10-08] MEDS: Enoxaparin 40 mg Syringe SC SCH (08:32)
[2016-10-08] MEDS: levoFLOXacin 750 mg in D5W 750 MG/150 ML BAG IVPB SCH (10:00)
[2016-10-08 11:09] LABS: ALB/GLOB RATIO 0.9 (1.0-2.1); ALBUMIN 3.2 g/dL (3.5-5.0); ALT/SGPT 29 U/L (9-52); AST/SGOT 48 U/L (14-36); BLOOD UREA NITROGEN 5 mg/dl (7-17); CALCIUM 8.7 mg/dL (8.4-10.2); GFR AFRICAN-AMERICAN > 60; GFR NON-AFRICAN AMERICAN > 60
[2016-10-08] MEDS ORDERED: Insulin Detemir 100 Units/ml Inj SC SCH ×2 (11:16→11:19)
--- NOTE | 2016-10-08 12:54 | CP.PCM.PN ---
Subjective - Date & Time of Evaluation Date of Evaluation: 10/08/16 Time of Evaluation: 06:45 - Subjective Subjective: No Acute overnight events. Pt seen and examined this morning. States that the severity of her cough is still the same. She had 1 episode of chills last night. She also still has frequent bowel movements associated with constipation that has slightly reduced in frequency. Denies CP, palpatatins, N/V, dysuria. Objective - Vital Signs/Intake and Output Vital Signs (last 24 hours): Temp Pulse Resp BP Pulse Ox 98.4 F 95 H 18 127/79 96 10/08/16 07:21 10/08/16 07:21 10/08/16 07:21 10/08/16 08:38 10/08/16 07:21 - Medications Medications: Current Medications Acetaminophen (Tylenol 325mg Tab) 650 mg PO Q6 PRN PRN Reason: Fever >100.4 F Last Admin: 10/07/16 00:32 Dose: 650 mg Albuterol (Ventolin Hfa 90 Mcg/Actuation (8 G)) 2 puff IH Q4H PRN PRN Reason: Shortness of Breath Alprazolam (Xanax) 0.5 mg PO TID [facility] Last Admin: 10/08/16 08:39 Dose: 0.5 mg Dextrose (Dextrose 50% Inj) 0 ml IV STAT PRN; Protocol PRN Reason: Hyglycemia Protocol Dextrose (Glutose 15) 0 gm PO ONCE PRN; Protocol PRN Reason: Hypoglycemia Protocol Enoxaparin Sodium (Lovenox) 40 mg SC DAILY [facility] PRN Reason: Protocol Last Admin: 10/08/16 08:32 Dose: 40 mg Glucagon (Glucagen Diagnostic Kit) 0 mg IM STAT PRN; Protocol PRN Reason: Hypoglycemia Protocol Metronidazole (Flagyl 500mg/100ml Ns) 100 mls @ 100 mls/hr IVPB Q8 [facility] Last Admin: 10/08/16 08:29 Dose: 100 mls/hr Levofloxacin/Dextrose (Levaquin 750mg) 750 mg in 150 mls @ 100 mls/hr IVPB DAILY [facility] Last Admin: 10/08/16 10:00 Dose: 100 mls/hr Potassium Chloride/Sodium Chloride (Potassium Chl 20 Meq In Ns) 1,000 mls @ 99.01 mls/hr IV .Q10H6M [facility] Last Admin: 10/08/16 04:46 Dose: 99.01 mls/hr Insulin Detemir (Levemir) 10 units SC HS [facility] Insulin Human Lispro (Humalog) 18 units SC BRK [facility] Last Admin: 10/08/16 08:31 Dose: Not Given Insulin Human Lispro (Humalog) 15 units SC ACLD [facility] Insulin Human Regular (Humulin R) 0 units SC ACHS [facility] PRN Reason: Protocol Last Admin: 10/08/16 08:31 Dose: Not Given Levothyroxine Sodium (Synthroid) 50 mcg PO DAILY@0630 [facility] Last Admin: 10/08/16 05:38 Dose: 50 mcg Lisinopril (Zestril) 10 mg PO DAILY [facility] Last Admin: 10/08/16 08:38 Dose: 10 mg Mirtazapine (Remeron) 15 mg PO [facility] Last Admin: 10/07/16 21:38 Dose: 15 mg Ondansetron HCl (Zofran Inj) 4 mg IVP Q6 PRN PRN Reason: Nausea/Vomiting Quetiapine Fumarate (Seroquel) 300 mg PO [facility] Last Admin: 10/07/16 21:38 Dose: 300 mg Saccharomyces Boulardii (Florastor) 250 mg PO BID [facility] Last Admin: 10/08/16 08:30 Dose: 250 mg - Labs Labs: 10/07/16 05:30 10/08/16 10:30 - Constitutional Appears: Well, No Acute Distress - Respiratory Exam Respiratory Exam: Clear to Ausculation Bilateral, Rales Additional comments: Rales appreciated in the lower and mid right lung bases, no wheezing. Patient coughs intermittently, non productive, exacerbated by inhalation - GI/Abdominal Exam GI & Abdominal Exam: Hyperactive Bowel Sounds. absent: Distended, Firm, Soft, Mass, Organomegaly Additional comments: Tenderness in all quadrants on deep palpation. No gaurding, rigidity, rebound tenderness, López's - Assessment and Plan (1) Colitis Status: Acute (2) Pneumonia Status: Acute - Assessment and Plan (Free Text) Assessment: 55 y/o F with PMH including HTN, IDDM2, Hypothyroidism and Cdif infection in June 2016 admitted for Right lower lobe pneumonia and Colitis. Plan: Colitis-CT abdomen w/ PO & IV contrast detected mural thickening of ascending colon consistent with non-specific colitis, Undetermined etiology. History of C Dif in June 2016, I.D. input Dr. Nowak appreciated -Frequency of BM decreasing, afebrile, no leukocytosis -C. Diff Negative -Continue flagyl 500mg/100ml NS IV Q8h -Zofran 4mg IV Q6h PRN nausea -Stool electrolytes and cultures, Legionella- pending Hypokalemia- 4.1 today -I.V. Fluids with KCL 20meq -Resolved Right Lower Lobe Pneumonia, community acquired- I.D. input Dr. Nowak appreciated -Continue with Levofloxacin 750mg IV daily -HIV 1&2 ABX negative Sepsis- I.D. input Dr. Nowak appreciated -Urine culture- contaminated will get straight cath urine culture. f/u repeat UCx -Blood culture negative x2 -Receiving levofloxacin 750mg IV daily + flagyl 500mg IV Q8H continue current ABX as per I.D. Insulin Dependent Diabetes Mellitus, Type 2, with hyperglycemia -Pt has had a series of hypoglycemic episodes so her long acting insulin ( Levemir) was reduced to 10units. Short acting insulin regimen was D/C for now. -Levemir 10units SC HS -ISS -Accuchecks ACHS -Hypoglycemia protocol Anemia, undetermined etiology- FOBT positive -Will repeat FOBT currently hemodynamically stable, will get orthostatics, currently asymptomatic -Colonoscopy performed on 07/24/16 normal other than non-bleeding internal hemorrhoids -FOBT- Positive -Vit B12, Folate, Retic count, Iron studies ordered Hypothyroidism -Last TSH: 1.27 on 07/04/16 -Continue Levothyroxine 50mcg PO daily Anxiety d/o -Taking xanax 0.5mg PO TID -Well controlled DVT Prophylaxis -Lovenox 40mg SC daily
--- NOTE | 2016-10-08 19:00 | CP.PCM.CON ---
<Bailey Gardiner - Last Filed: 10/08/16 19:24> History of Present Illness - History of Present Illness History of Present Illness: GI Fellow PGY4 Consult Note This is a 55yF with a pmhx of IDDM, Hypothyroidism,HTN, HLD, Depression.Pt pw co of nonproductive cough, abdominal pain, diarrhea and vomiting for 2 weeks. Pt reports having watery diarrhea 4-5 episodes daily with no blood per rectum and bilious nonbloody emesis. Pt reports that her diarrhea has improved today, a little bit more formed and only had 3 episodes. Pt reports she is not having any vomiting and is able to hold down solids and liquids but has poor appetite. Still has abdominal pain in the RLQ. Pt does report hx of community acquired Cdiff in June 2016 for which she received treatment. Also pt had an EGD/ Colonoscopy in July 2016 for anemia and luminal exam showed internal hemorrhoids in the colon and LA grade A esophagitis, gastritis, 3cm Hiatal hernia and H.pylori positive infection for which she received treatment in August 2016. Denies any travel, sick contacts, and does report recent abx use for H.pylori infection in August 2016. Pt currently being treated for CAP and Colitis on IV Levaquin/Flagyl with 2xcdiff negative stool studies. ROS: A 12pt ROS was obtained and was negative except as above PmHx: Asthma, IDDM, Hypothyroidism, HTN PsHx: Appendectomy, tonsillectomy, cardiac stents, cholecystectomy SHx: Tobacco use 5 cigarets a day, negative for alcohol or illicit drug use FHx: HTN, DM Past Patient History - Infectious Disease Hx of Infectious Diseases: C.diff - Past Medical History & Family History Past Medical History?: Yes - Past Social History Smoking Status: Light Smoker < 10 Cigarettes Daily (5 cig per day) Alcohol: None Drugs: Denies Home Situation {Lives}: With Family (lives with son) - CARDIAC Hx Congestive Heart Failure: No Hx Hypertension: Yes - PULMONARY Hx Asthma: Yes Hx Chronic Obstructive Pulmonary Disease (COPD): No - NEUROLOGICAL Hx Neurological Disorder: Yes (Diabetic neuropathy) - ENDOCRINE/METABOLIC Hx Diabetes Mellitus Type 2: Yes (Insulin dependent) Hx Hypothyroidism: Yes - HEMATOLOGICAL/ONCOLOGICAL Hx Human Immunodeficiency Virus (HIV): No - INTEGUMENTARY Hx Dermatological Problems: Yes Other/Comment: R very small dry scab hx of fall at home - MUSCULOSKELETAL/RHEUMATOLOGICAL Hx Arthritis: No Hx Fractures: Yes (rib (left)) Hx Rheumatoid Arthritis: No - GASTROINTESTINAL Hx Clostridium Difficile: Yes (June 2016) Hx Gastritis: Yes - GENITOURINARY/GYNECOLOGICAL Hx Genitourinary Disorders: No - PSYCHIATRIC Hx Anxiety: Yes Hx Depression: Yes - SURGICAL HISTORY Hx Appendectomy: Yes Hx Cholecystectomy: Yes Hx Coronary Stent: Yes Hx Tonsillectomy: Yes - ANESTHESIA Hx Anesthesia: Yes Hx Anesthesia Reactions: No Hx Malignant Hyperthermia: No Meds Allergies/Adverse Reactions: Allergies Allergy/AdvReac Type Severity Reaction Status Date / Time Penicillins Allergy RASH Verified 10/05/16 13:07 lipitor AdvReac Intermediate RASH Uncoded 10/05/16 23:59 - Medications Medications: Current Medications Acetaminophen (Tylenol 325mg Tab) 650 mg PO Q6 PRN PRN Reason: Fever >100.4 F Last Admin: 10/07/16 00:32 Dose: 650 mg Albuterol (Ventolin Hfa 90 Mcg/Actuation (8 G)) 2 puff IH Q4H PRN PRN Reason: Shortness of Breath Alprazolam (Xanax) 0.5 mg PO TID [facility] Last Admin: 10/08/16 17:17 Dose: 0.5 mg Dextrose (Dextrose 50% Inj) 0 ml IV STAT PRN; Protocol PRN Reason: Hyglycemia Protocol Dextrose (Glutose 15) 0 gm PO ONCE PRN; Protocol PRN Reason: Hypoglycemia Protocol Enoxaparin Sodium (Lovenox) 40 mg SC DAILY [facility] PRN Reason: Protocol Last Admin: 10/08/16 08:32 Dose: 40 mg Glucagon (Glucagen Diagnostic Kit) 0 mg IM STAT PRN; Protocol PRN Reason: Hypoglycemia Protocol Metronidazole (Flagyl 500mg/100ml Ns) 100 mls @ 100 mls/hr IVPB Q8 [facility] Last Admin: 10/08/16 17:13 Dose: 100 mls/hr Levofloxacin/Dextrose (Levaquin 750mg) 750 mg in 150 mls @ 100 mls/hr IVPB DAILY [facility] Last Admin: 10/08/16 10:00 Dose: 100 mls/hr Potassium Chloride/Sodium Chloride (Potassium Chl 20 Meq In Ns) 1,000 mls @ 99.01 mls/hr IV .Q10H6M [facility] Last Admin: 10/08/16 04:46 Dose: 99.01 mls/hr Insulin Detemir (Levemir) 10 units SC HS [facility] Insulin Human Lispro (Humalog) 18 units SC BRK [facility] Last Admin: 10/08/16 08:31 Dose: Not Given Insulin Human Lispro (Humalog) 15 units SC ACLD [facility] Insulin Human Regular (Humulin R) 0 units SC ACHS [facility] PRN Reason: Protocol Last Admin: 10/08/16 17:15 Dose: Not Given Levothyroxine Sodium (Synthroid) 50 mcg PO DAILY@0630 [facility] Last Admin: 10/08/16 05:38 Dose: 50 mcg Lisinopril (Zestril) 10 mg PO DAILY [facility] Last Admin: 10/08/16 08:38 Dose: 10 mg Mirtazapine (Remeron) 15 mg PO [facility] Last Admin: 10/07/16 21:38 Dose: 15 mg Ondansetron HCl (Zofran Inj) 4 mg IVP Q6 PRN PRN Reason: Nausea/Vomiting Quetiapine Fumarate (Seroquel) 300 mg PO [facility] Last Admin: 10/07/16 21:38 Dose: 300 mg Saccharomyces Boulardii (Florastor) 250 mg PO BID [facility] Last Admin: 10/08/16 17:14 Dose: 250 mg Physical Exam - Constitutional Appears: Non-toxic, No Acute Distress, Older Than Stated Age - Head Exam Head Exam: ATRAUMATIC, NORMAL INSPECTION, NORMOCEPHALIC - Eye Exam Eye Exam: EOMI, Normal appearance, PERRL Pupil Exam: PERRL - ENT Exam ENT Exam: Mucous Membranes Dry, Mucous Membranes Moist, Normal Exam - Neck Exam Neck exam: Positive for: Normal Inspection - Respiratory Exam Respiratory Exam: Rales, Rhonchi - Cardiovascular Exam Cardiovascular Exam: REGULAR RHYTHM, +S1, +S2 - GI/Abdominal Exam GI & Abdominal Exam: Distended, Normal Bowel Sounds, Soft, Tenderness. absent: Guarding, Organomegaly - Rectal Exam Rectal Exam: Hemorrhoids, NORMAL INSPECTION. absent: Black Stool, Bloody Stool , Fecal Impaction - Back Exam Back exam: NORMAL INSPECTION - Neurological Exam Neurological exam: Alert, Oriented x3 - Psychiatric Exam Psychiatric exam: Normal Affect, Normal Mood - Skin Skin Exam: Dry, Intact, Pallor, Warm Results - Vital Signs Recent Vital Signs: Last Vital Signs Temp 98.9 F 10/08/16 16:07 Pulse 94 H 10/08/16 16:07 Resp 20 10/08/16 16:07 BP 129/77 10/08/16 16:07 Pulse Ox 95 10/08/16 16:07 - Labs Result Diagrams: 10/07/16 05:30 10/08/16 10:30 Labs: Laboratory Results - last 24 hr 10/07/16 10/08/16 10/08/16 21:44 05:32 08:55 Sodium Potassium Chloride Carbon Dioxide Anion Gap BUN Creatinine Est GFR ( Amer) Est GFR (Non-Af Amer) POC Glucose (mg/dL) 108 48 L 57 L Random Glucose Calcium Total Bilirubin AST ALT Alkaline Phosphatase Total Protein Albumin Globulin Albumin/Globulin Ratio C. difficile Ag & Toxin 10/08/16 10/08/16 10/08/16 09:27 10:30 10:39 Sodium 143 Potassium 4.1 Chloride 113 H Carbon Dioxide 23 Anion Gap 11 BUN 5 L Creatinine 0.5 L Est GFR ( Amer) > 60 Est GFR (Non-Af Amer) > 60 POC Glucose (mg/dL) 69 79 Random Glucose 75 Calcium 8.7 Total Bilirubin 0.4 AST 48 H D ALT 29 Alkaline Phosphatase 118 Total Protein 6.8 Albumin 3.2 L Globulin 3.6 Albumin/Globulin Ratio 0.9 L C. difficile Ag & Toxin 10/08/16 10/08/16 10/08/16 14:45 15:43 18:04 Sodium Potassium Chloride Carbon Dioxide Anion Gap BUN Creatinine Est GFR ( Amer) Est GFR (Non-Af Amer) POC Glucose (mg/dL) 65 58 L Random Glucose Calcium Total Bilirubin AST ALT Alkaline Phosphatase Total Protein Albumin Globulin Albumin/Globulin Ratio C. difficile Ag & Toxin Negative Assessment & Plan - Assessment and Plan (Free Text) Assessment: This is a 55yF pw nonproductive cough, abdominal pain, vomiting and diarrhea. 1.Colitis 2.Anemia 3.Hx H.pylori Infection 4.CAP 5.Hx Cdiff Plan: -Continue Supportive care for infections -Continue IV abx for Colitis-diarrhea improving -Stool studies pending, cdiff negativex2 -IV abx for PNA -Diet as tolerated -Recent Hx H.pylori-order stool antigen test to determine if H.pylori infection eradicated -Anemia, Hgb stable, hemodynamically stable, no active GI bleed, rectal exam negative for melena or hematochezia, prior EGD/Colonoscopy 07/2016 negative for any source of bleed -No plan for endoscopic evaluation at this time with active infections and no active GI bleed -Will continue to follow pt closely <Des Allred MD - Last Filed: 10/09/16 15:18> Meds - Medications Medications: Current Medications Acetaminophen (Tylenol 325mg Tab) 650 mg PO Q6 PRN PRN Reason: Fever >100.4 F Last Admin: 10/07/16 00:32 Dose: 650 mg Acetaminophen (Tylenol 325mg Tab) 650 mg PO Q6 PRN PRN Reason: Headache Last Admin: 10/08/16 23:02 Dose: 650 mg Al Hydrox/Mg Hydrox/Simethicone (Maalox Plus 30 Ml) 30 ml PO Q6 PRN PRN Reason: Indigestion / Heartburn Albuterol (Ventolin Hfa 90 Mcg/Actuation (8 G)) 2 puff IH Q4H PRN PRN Reason: Shortness of Breath Atorvastatin Calcium (Lipitor) 40 mg PO DAILY [facility] Dextrose (Dextrose 50% Inj) 0 ml IV STAT PRN; Protocol PRN Reason: Hyglycemia Protocol Dextrose (Glutose 15) 0 gm PO ONCE PRN; Protocol PRN Reason: Hypoglycemia Protocol Enoxaparin Sodium (Lovenox) 40 mg SC DAILY [facility] PRN Reason: Protocol Last Admin: 10/09/16 12:38 Dose: Not Given Glucagon (Glucagen Diagnostic Kit) 0 mg IM STAT PRN; Protocol PRN Reason: Hypoglycemia Protocol Metronidazole (Flagyl 500mg/100ml Ns) 100 mls @ 100 mls/hr IVPB Q8 [facility] Last Admin: 10/09/16 08:33 Dose: 100 mls/hr Levofloxacin/Dextrose (Levaquin 750mg) 750 mg in 150 mls @ 100 mls/hr IVPB DAILY [facility] Last Admin: 10/09/16 08:37 Dose: 100 mls/hr Potassium Chloride/Sodium Chloride (Potassium Chl 20 Meq In Ns) 1,000 mls @ 99.01 mls/hr IV .Q10H6M [facility] Last Admin: 10/09/16 09:54 Dose: 99.01 mls/hr Insulin Detemir (Levemir) 10 units SC HS [facility] Insulin Human Lispro (Humalog) 18 units SC BRK [facility] Last Admin: 10/08/16 08:31 Dose: Not Given Insulin Human Lispro (Humalog) 15 units SC ACLD [facility] Insulin Human Regular (Humulin R) 0 units SC ACHS [facility] PRN Reason: Protocol Last Admin: 10/09/16 12:27 Dose: 3 units Levothyroxine Sodium (Synthroid) 50 mcg PO DAILY@0630 [facility] Last Admin: 10/09/16 07:00 Dose: 50 mcg Lidocaine (Lidoderm) 2 ea TD DAILY [facility] Last Admin: 10/09/16 12:16 Dose: 2 ea Mirtazapine (Remeron) 15 mg PO [facility] Last Admin: 10/08/16 21:44 Dose: 15 mg Ondansetron HCl (Zofran Inj) 4 mg IVP Q6 PRN PRN Reason: Nausea/Vomiting Oxycodone HCl (Oxycodone Immediate Release Tab) 15 mg PO Q8 PRN PRN Reason: Pain, severe (8-10) Stop: 10/12/16 17:01 Last Admin: 10/09/16 14:15 Dose: 15 mg Quetiapine Fumarate (Seroquel) 300 mg PO [facility] Last Admin: 10/08/16 21:44 Dose: 300 mg Saccharomyces Boulardii (Florastor) 250 mg PO BID [facility] Last Admin: 10/09/16 08:35 Dose: 250 mg Results - Vital Signs Recent Vital Signs: Last Vital Signs Temp 98.3 F 10/09/16 07:56 Pulse 91 H 10/09/16 10:06 Resp 20 10/09/16 07:56 BP 162/90 H 10/09/16 10:06 Pulse Ox 97 10/09/16 07:56 - Labs Result Diagrams: 10/09/16 08:48 10/08/16 10:30 Labs: Laboratory Results - last 24 hr 10/08/16 10/08/16 10/08/16 14:45 14:45 15:43 WBC RBC Hgb Hct MCV MCH MCHC RDW Plt Count POC Glucose (mg/dL) 65 Stool Occult Blood Positive H C. difficile Ag & Toxin Negative 10/08/16 10/08/16 10/09/16 18:04 22:31 06:15 WBC RBC Hgb Hct MCV MCH MCHC RDW Plt Count POC Glucose (mg/dL) 58 L 69 146 H Stool Occult Blood C. difficile Ag & Toxin 10/09/16 10/09/16 08:48 11:06 WBC 7.2 RBC 2.73 L Hgb 9.0 L Hct 25.4 L MCV 93.1 D MCH 33.0 H MCHC 35.4 RDW 13.9 Plt Count 348 POC Glucose (mg/dL) 225 H Stool Occult Blood C. difficile Ag & Toxin Attending/Attestation - Attestation I have personally seen and examined this patient.: Yes I have fully participated in the care of the patient.: Yes I have reviewed all pertinent clinical information: Yes Notes (Text): 10/09/16 15:16 Patient seen with GI fellow on rounds. This is a 55 yr old F presented with nonproductive cough, abdominal pain, vomiting and diarrhea after two week course of antibiotics for H pylori. Also found to have community acquired pneumonia. Bidirectional luminal exam for anemia work up was negative for ulcers or mass lesions in july 2016. Will send stool infectious work up to rule out C difficile and give supportive care. Diet as tolerated. Needs repeat Stool for H pylori antigen to confirm eradication for ongoing symptoms.
[2016-10-09] MEDS: metroNIDAZOLE 500mg/100ml NS 100 ML IVPB SCH ×3 (00:12→16:33)
[2016-10-09] MEDS: Levothyroxine 50 MCG TAB PO SCH (07:00)
--- NOTE | 2016-10-09 07:45 | CP.PCM.PN ---
<Bailey Gardiner - Last Filed: 10/09/16 07:58> Subjective - Date & Time of Evaluation Date of Evaluation: 10/09/16 Time of Evaluation: 07:00 - Subjective Subjective: GI Fellow PGY4 Progress Note Pt seen and evaluated at bedside, pt complaining of abdominal cramps since 2am with no relief from Tylenol and refusing Motrin. Pt reports 2 episodes of watery diarrhea overnight, nonbloody. Pt denies fevers, chills, nausea or vomiting. Pt reports she takes pain medication at home with oxycodone 15mg QID which has not been start in the hospital. ROS: A 12pt ROS was obtained and was negative except as above. Objective - Vital Signs/Intake and Output Vital Signs (last 24 hours): Temp Pulse Resp BP Pulse Ox 98.2 F 80 20 113/72 98 10/09/16 00:37 10/09/16 00:37 10/09/16 00:37 10/09/16 00:37 10/09/16 00:37 - Medications Medications: Current Medications Acetaminophen (Tylenol 325mg Tab) 650 mg PO Q6 PRN PRN Reason: Fever >100.4 F Last Admin: 10/07/16 00:32 Dose: 650 mg Acetaminophen (Tylenol 325mg Tab) 650 mg PO Q6 PRN PRN Reason: Headache Last Admin: 10/08/16 23:02 Dose: 650 mg Albuterol (Ventolin Hfa 90 Mcg/Actuation (8 G)) 2 puff IH Q4H PRN PRN Reason: Shortness of Breath Alprazolam (Xanax) 0.5 mg PO TID [facility] Last Admin: 10/08/16 17:17 Dose: 0.5 mg Dextrose (Dextrose 50% Inj) 0 ml IV STAT PRN; Protocol PRN Reason: Hyglycemia Protocol Dextrose (Glutose 15) 0 gm PO ONCE PRN; Protocol PRN Reason: Hypoglycemia Protocol Enoxaparin Sodium (Lovenox) 40 mg SC DAILY [facility] PRN Reason: Protocol Last Admin: 10/08/16 08:32 Dose: 40 mg Glucagon (Glucagen Diagnostic Kit) 0 mg IM STAT PRN; Protocol PRN Reason: Hypoglycemia Protocol Metronidazole (Flagyl 500mg/100ml Ns) 100 mls @ 100 mls/hr IVPB Q8 [facility] Last Admin: 10/09/16 00:12 Dose: 100 mls/hr Levofloxacin/Dextrose (Levaquin 750mg) 750 mg in 150 mls @ 100 mls/hr IVPB DAILY [facility] Last Admin: 10/08/16 10:00 Dose: 100 mls/hr Potassium Chloride/Sodium Chloride (Potassium Chl 20 Meq In Ns) 1,000 mls @ 99.01 mls/hr IV .Q10H6M [facility] Last Admin: 10/08/16 21:43 Dose: Not Given Insulin Detemir (Levemir) 10 units SC HS [facility] Insulin Human Lispro (Humalog) 18 units SC BRK [facility] Last Admin: 10/08/16 08:31 Dose: Not Given Insulin Human Lispro (Humalog) 15 units SC ACLD [facility] Insulin Human Regular (Humulin R) 0 units SC ACHS [facility] PRN Reason: Protocol Last Admin: 10/08/16 22:43 Dose: Not Given Levothyroxine Sodium (Synthroid) 50 mcg PO DAILY@0630 [facility] Last Admin: 10/09/16 07:00 Dose: 50 mcg Lisinopril (Zestril) 10 mg PO DAILY [facility] Last Admin: 10/08/16 08:38 Dose: 10 mg Mirtazapine (Remeron) 15 mg PO HS [facility] Last Admin: 10/08/16 21:44 Dose: 15 mg Ondansetron HCl (Zofran Inj) 4 mg IVP Q6 PRN PRN Reason: Nausea/Vomiting Quetiapine Fumarate (Seroquel) 300 mg PO HS [facility] Last Admin: 10/08/16 21:44 Dose: 300 mg Saccharomyces Boulardii (Florastor) 250 mg PO BID [facility] Last Admin: 10/08/16 17:14 Dose: 250 mg - Labs Labs: 10/07/16 05:30 10/08/16 10:30 - Constitutional Appears: Non-toxic, Older Than Stated Age - Head Exam Head Exam: ATRAUMATIC, NORMAL INSPECTION, NORMOCEPHALIC - Eye Exam Eye Exam: EOMI, Normal appearance, PERRL Pupil Exam: PERRL - ENT Exam ENT Exam: Mucous Membranes Moist, Normal Exam - Neck Exam Neck Exam: Normal Inspection - Respiratory Exam Respiratory Exam: Rales, NORMAL BREATHING PATTERN - Cardiovascular Exam Cardiovascular Exam: RRR, +S1, +S2 - GI/Abdominal Exam GI & Abdominal Exam: Soft, Tenderness, Hyperactive Bowel Sounds - Rectal Exam Rectal Exam: Deferred - Back Exam Back Exam: NORMAL INSPECTION - Neurological Exam Neurological Exam: Alert, Awake, Oriented x3 - Psychiatric Exam Psychiatric exam: Anxious, Normal Mood - Skin Skin Exam: Dry, Intact, Normal Color, Warm Assessment and Plan - Assessment and Plan (Free Text) Assessment: This is a 55yF pw nonproductive cough, abdominal pain, vomiting and diarrhea. 1.Colitis 2.Anemia 3.Hx H.pylori Infection 4.CAP 5.Hx Cdiff Plan: -Continue Supportive care for PNA, Colitis with IV abx -Diarrhea improving, Abdominal cramps, one time dose of bentyl, maybe infectious vs secondary to opioid withdrawal since pt is not receiving home regimen -Stool studies pending, cdiff negativex2 -Diet as tolerated -Recent Hx H.pylori-stool antigen test to determine if H.pylori infection eradicated pending -Anemia, Hgb stable, hemodynamically stable, no active GI bleed, rectal exam negative for melena or hematochezia, prior EGD/Colonoscopy 07/2016 negative for any source of bleed, will order CBC to monitor Hgb today -No plan for endoscopic evaluation at this time with active infections and no active GI bleed -Will continue to follow pt closely <Des Allred MD - Last Filed: 10/09/16 15:19> Objective - Vital Signs/Intake and Output Vital Signs (last 24 hours): Temp Pulse Resp BP Pulse Ox 98.3 F 91 H 20 162/90 H 97 10/09/16 07:56 10/09/16 10:06 10/09/16 07:56 10/09/16 10:06 10/09/16 07:56 - Medications Medications: Current Medications Acetaminophen (Tylenol 325mg Tab) 650 mg PO Q6 PRN PRN Reason: Fever >100.4 F Last Admin: 10/07/16 00:32 Dose: 650 mg Acetaminophen (Tylenol 325mg Tab) 650 mg PO Q6 PRN PRN Reason: Headache Last Admin: 10/08/16 23:02 Dose: 650 mg Al Hydrox/Mg Hydrox/Simethicone (Maalox Plus 30 Ml) 30 ml PO Q6 PRN PRN Reason: Indigestion / Heartburn Albuterol (Ventolin Hfa 90 Mcg/Actuation (8 G)) 2 puff IH Q4H PRN PRN Reason: Shortness of Breath Atorvastatin Calcium (Lipitor) 40 mg PO DAILY [facility] Dextrose (Dextrose 50% Inj) 0 ml IV STAT PRN; Protocol PRN Reason: Hyglycemia Protocol Dextrose (Glutose 15) 0 gm PO ONCE PRN; Protocol PRN Reason: Hypoglycemia Protocol Enoxaparin Sodium (Lovenox) 40 mg SC DAILY [facility] PRN Reason: Protocol Last Admin: 10/09/16 12:38 Dose: Not Given Glucagon (Glucagen Diagnostic Kit) 0 mg IM STAT PRN; Protocol PRN Reason: Hypoglycemia Protocol Metronidazole (Flagyl 500mg/100ml Ns) 100 mls @ 100 mls/hr IVPB Q8 [facility] Last Admin: 10/09/16 08:33 Dose: 100 mls/hr Levofloxacin/Dextrose (Levaquin 750mg) 750 mg in 150 mls @ 100 mls/hr IVPB DAILY [facility] Last Admin: 10/09/16 08:37 Dose: 100 mls/hr Potassium Chloride/Sodium Chloride (Potassium Chl 20 Meq In Ns) 1,000 mls @ 99.01 mls/hr IV .Q10H6M [facility] Last Admin: 10/09/16 09:54 Dose: 99.01 mls/hr Insulin Detemir (Levemir) 10 units SC HS [facility] Insulin Human Lispro (Humalog) 18 units SC BRK [facility] Last Admin: 10/08/16 08:31 Dose: Not Given Insulin Human Lispro (Humalog) 15 units SC ACLD [facility] Insulin Human Regular (Humulin R) 0 units SC ACHS [facility] PRN Reason: Protocol Last Admin: 10/09/16 12:27 Dose: 3 units Levothyroxine Sodium (Synthroid) 50 mcg PO DAILY@0630 [facility] Last Admin: 10/09/16 07:00 Dose: 50 mcg Lidocaine (Lidoderm) 2 ea TD DAILY [facility] Last Admin: 10/09/16 12:16 Dose: 2 ea Mirtazapine (Remeron) 15 mg PO HS [facility] Last Admin: 10/08/16 21:44 Dose: 15 mg Ondansetron HCl (Zofran Inj) 4 mg IVP Q6 PRN PRN Reason: Nausea/Vomiting Oxycodone HCl (Oxycodone Immediate Release Tab) 15 mg PO Q8 PRN PRN Reason: Pain, severe (8-10) Stop: 10/12/16 17:01 Last Admin: 10/09/16 14:15 Dose: 15 mg Quetiapine Fumarate (Seroquel) 300 mg PO HS [facility] Last Admin: 10/08/16 21:44 Dose: 300 mg Saccharomyces Boulardii (Florastor) 250 mg PO BID [facility] Last Admin: 10/09/16 08:35 Dose: 250 mg - Labs Labs: 10/09/16 08:48 10/08/16 10:30 Attending/Attestation - Attestation I have personally seen and examined this patient.: Yes I have fully participated in the care of the patient.: Yes I have reviewed all pertinent clinical information, including history, physical exam and plan: Yes Notes (Text): 10/09/16 15:19 Patient seen with GI fellow on rounds. This is a 55 yr old F presented with nonproductive cough, abdominal pain, vomiting and diarrhea after two week course of antibiotics for H pylori. Also found to have community acquired pneumonia. Bidirectional luminal exam for anemia work up was negative for ulcers or mass lesions in july 2016. Will send stool infectious work up to rule out C difficile and give supportive care. Diet as tolerated. Needs repeat Stool for H pylori antigen to confirm eradication for ongoing symptoms.
[2016-10-09] MEDS: Insulin Regular 100 units/ml SC SCH ×4 (07:59→16:57)
--- NOTE | 2016-10-09 08:06 | CP.PCM.PN ---
Subjective - Date & Time of Evaluation Date of Evaluation: 10/09/16 Time of Evaluation: 06:45 - Subjective Subjective: No acute overnight events. Pt seen and examined at the bedside. Complained of cramping abdominal pain that began yesterday in the morning and has been constant. Not exacerbated or relieved by BM, no associated n/v. States she is still having frequent bowel movements, 4BM yesterday, watery, non bloody. Coughing slightly improved. Denies fever, chills, chest pain, SOB." Objective - Vital Signs/Intake and Output Vital Signs (last 24 hours): Temp Pulse Resp BP Pulse Ox 98.3 F 91 H 20 162/90 H 97 10/09/16 07:56 10/09/16 07:56 10/09/16 07:56 10/09/16 07:56 10/09/16 07:56 - Medications Medications: Current Medications Acetaminophen (Tylenol 325mg Tab) 650 mg PO Q6 PRN PRN Reason: Fever >100.4 F Last Admin: 10/07/16 00:32 Dose: 650 mg Acetaminophen (Tylenol 325mg Tab) 650 mg PO Q6 PRN PRN Reason: Headache Last Admin: 10/08/16 23:02 Dose: 650 mg Albuterol (Ventolin Hfa 90 Mcg/Actuation (8 G)) 2 puff IH Q4H PRN PRN Reason: Shortness of Breath Alprazolam (Xanax) 0.5 mg PO TID [facility] Last Admin: 10/08/16 17:17 Dose: 0.5 mg Dextrose (Dextrose 50% Inj) 0 ml IV STAT PRN; Protocol PRN Reason: Hyglycemia Protocol Dextrose (Glutose 15) 0 gm PO ONCE PRN; Protocol PRN Reason: Hypoglycemia Protocol Enoxaparin Sodium (Lovenox) 40 mg SC DAILY [facility] PRN Reason: Protocol Last Admin: 10/08/16 08:32 Dose: 40 mg Glucagon (Glucagen Diagnostic Kit) 0 mg IM STAT PRN; Protocol PRN Reason: Hypoglycemia Protocol Metronidazole (Flagyl 500mg/100ml Ns) 100 mls @ 100 mls/hr IVPB Q8 [facility] Last Admin: 10/09/16 00:12 Dose: 100 mls/hr Levofloxacin/Dextrose (Levaquin 750mg) 750 mg in 150 mls @ 100 mls/hr IVPB DAILY [facility] Last Admin: 10/08/16 10:00 Dose: 100 mls/hr Potassium Chloride/Sodium Chloride (Potassium Chl 20 Meq In Ns) 1,000 mls @ 99.01 mls/hr IV .Q10H6M [facility] Last Admin: 10/08/16 21:43 Dose: Not Given Insulin Detemir (Levemir) 10 units SC HS [facility] Insulin Human Lispro (Humalog) 18 units SC BRK [facility] Last Admin: 10/08/16 08:31 Dose: Not Given Insulin Human Lispro (Humalog) 15 units SC ACLD [facility] Insulin Human Regular (Humulin R) 0 units SC ACHS [facility] PRN Reason: Protocol Last Admin: 10/09/16 07:59 Dose: Not Given Levothyroxine Sodium (Synthroid) 50 mcg PO DAILY@0630 [facility] Last Admin: 10/09/16 07:00 Dose: 50 mcg Lisinopril (Zestril) 10 mg PO DAILY [facility] Last Admin: 10/08/16 08:38 Dose: 10 mg Mirtazapine (Remeron) 15 mg PO [facility] Last Admin: 10/08/16 21:44 Dose: 15 mg Ondansetron HCl (Zofran Inj) 4 mg IVP Q6 PRN PRN Reason: Nausea/Vomiting Quetiapine Fumarate (Seroquel) 300 mg PO [facility] Last Admin: 10/08/16 21:44 Dose: 300 mg Saccharomyces Boulardii (Florastor) 250 mg PO BID [facility] Last Admin: 10/08/16 17:14 Dose: 250 mg - Labs Labs: 10/07/16 05:30 10/08/16 10:30 - Constitutional Appears: Well, No Acute Distress - ENT Exam ENT Exam: Mucous Membranes Moist - Respiratory Exam Respiratory Exam: Rales. absent: Accessory Muscle Use, Wheezes, Respiratory Distress Additional comments: Mild rales in right lung lower and mid lung gagnon. No acute distress. No use of accessory muscles. Pt coughs intermittently when inhaling. - Cardiovascular Exam Cardiovascular Exam: REGULAR RHYTHM, +S1, +S2. absent: Murmur - GI/Abdominal Exam GI & Abdominal Exam: Soft Additional comments: Tender to palpation in right and left upper quadrants (Right>Left). Non tender in lower quadrants. No organomegaly. Normal bowel sounds present. No gaurding, rigidity, or rebound tenderness. - Extremities Exam Extremities Exam: absent: Calf Tenderness, Pedal Edema - Neurological Exam Neurological Exam: Alert, Awake, Oriented x3 - Psychiatric Exam Psychiatric exam: Normal Affect Assessment and Plan (1) Colitis Status: Acute (2) Pneumonia Status: Acute - Assessment and Plan (Free Text) Assessment: 55 y/o F with PMH including HTN, IDDM2, Hypothyroidism and Cdif infection in June 2016 admitted for Right lower lobe pneumonia and Colitis. Plan: Colitis-CT abdomen w/ PO & IV contrast detected mural thickening of ascending colon consistent with non-specific colitis, Undetermined etiology. History of C Dif in June 2016, I.D. input Dr. Nowak appreciated -Frequency of BM decreasing, afebrile, no leukocytosis -C. Diff Negative x 2 -Continue flagyl 500mg/100ml NS IV Q8h -1 Dose of Bentyl given for cramps -Zofran 4mg IV Q6h PRN nausea -FOBT +, Hemodynamically stable, H/H stable, Pt has a hx of non bleeding hemorrhoids -GI Consults appreciated: Gastrointestinal symptoms likely infectious vs Opiod withdrawals (Pt is on Oxycodone at home). Last Endo/Colonoscopy done (07/18) was normal, Rectal exam negative for hematochezia or melena. Order H. Pylori stool antigen to determine if H. Pylori infection was eradicated. -Restarted on Oxycodone 15mg (home dose) Plan: Symptoms are resolving, Continue ABX and supportive therapy as per GI, Monitor H/H, F/U Stool electrolytes and cultures, Legionella, H Pylori Stool Antigen Right Lower Lobe Pneumonia, community acquired- I.D. input Dr. Nowak appreciated -Continue with Levofloxacin 750mg IV daily -HIV 1&2 ABX negative -Repeat Cxray (10/09): Mild increase in right basilar infiltrate, trace pleural effusions. Left lung clear -Chest CT: Infiltrates in the right lower lobe and to lesser extent right middle lobe. Associated right pleural effusion. Plan: C/w Abx as per ID Hypokalemia- 4.1 today -I.V. Fluids with KCL 20meq -Resolved Sepsis- Resolved -Pt has been afebrile for 72 hrs, no leukocytosis, Vitals wnl -Urine culture- contaminated will get straight cath urine culture. Repeat UCx pending -Blood culture negative x2 -Receiving levofloxacin 750mg IV daily + flagyl 500mg IV Q8H continue current ABX as per I.D. Insulin Dependent Diabetes Mellitus, Type 2, with hyperglycemia -Pt has had a series of hypoglycemic episodes (50's, 60's) so her Insulin was D/ C for now. Will monitor closely -ISS -Accuchecks ACHS -Hypoglycemia protocol Anemia, undetermined etiology- FOBT positive -Will repeat FOBT currently hemodynamically stable, will get orthostatics, currently asymptomatic -Colonoscopy performed on 07/24/16 normal other than non-bleeding internal hemorrhoids -FOBT- Positive -Vit B12, Folate, Retic count, Iron studies ordered Hypothyroidism -Last TSH: 1.27 on 07/04/16 -Continue Levothyroxine 50mcg PO daily Anxiety d/o -Taking xanax 0.5mg PO TID -Well controlled DVT Prophylaxis -Lovenox 40mg SC daily
[2016-10-09] MEDS: Enoxaparin 40 mg Syringe SC SCH ×2 (08:34→12:38)
[2016-10-09] MEDS: Saccharomyces Boulardi 250 mg Cap PO SCH ×2 (08:35→16:34)
[2016-10-09] MEDS: Potassium Chl 20 mEq in NS 1,000 ML IV SCH ×3 (08:36→16:38)
[2016-10-09] MEDS: levoFLOXacin 750 mg in D5W 750 MG/150 ML BAG IVPB SCH (08:37)
[2016-10-09 09:00] LABS: MEAN CORPUSCULAR HGB CONC 35.4 g/dL (33.0-37.0); RBC 2.73 Mil/uL (3.80-5.20); RED CELL DISTRIBUTION WIDTH 13.9 % (11.5-14.5); WHITE BLOOD COUNT 7.2 K/uL (4.8-10.8)
[2016-10-09 09:12] LABS: MEAN CELL VOLUME 93.1 fl (81.0-99.0)
[2016-10-09] MEDS ORDERED: oxyCODONE 10 mg ER Tab (oxyCONTIN) PO PRN (11:10)
--- NOTE | 2016-10-09 11:10 | RAD ---
HISTORY: Pneumonia COMPARISON: Portable chest 10/05/2016. TECHNIQUE: Chest PA and lateral FINDINGS: LUNGS: There is likely mild increase in patchy infiltrate at the right base with the right hemidiaphragm for this awaited. This may be a function of added atelectasis superimposed over infiltrate the worsening infiltrate is not excluded. No left infiltrate. PLEURA: Trace right pleural effusion. None is seen the left. CARDIOVASCULAR: Normal. OSSEOUS STRUCTURES: No significant abnormalities. VISUALIZED UPPER ABDOMEN: Normal. OTHER FINDINGS: None. IMPRESSION: A mild increase in right basilar infiltrate is likely, taking positioning differences into account. Trace right pleural effusion identified. Left lung remains clear.
--- NOTE | 2016-10-09 12:08 | CT ---
PROCEDURE: CT Chest without contrast HISTORY: Pneumonia, Smoker, COMPARISON: October 09, 2016. Two-view chest TECHNIQUE: Contiguous axial images were obtained through the chest without intravenous contrast enhancement. Sagittal and coronal reconstructions were performed. Radiation dose (DLP): 356.82 mGy-cm. This CT exam was performed using one or more of the following dose reduction techniques: Automated exposure control, adjustment of the mA and/or kV according to patient size, and/or use of iterative reconstruction technique. FINDINGS: LUNGS: Multi segment infiltrate right lower lobe. Adjacent subsegmental infiltrate right middle lobe Compressive atelectasis left lower lobe. No tracheal or endobronchial abnormalities. MEDIASTINUM: Unremarkable thoracic aorta. No aneurysm. Normal sized heart. Main pulmonary artery unremarkable. No vascular congestion. No lymphadenopathy. PLEURA: Bilateral pleural effusions right larger than left. BONES: No fracture. No destructive lesion. UPPER ABDOMEN: Grossly unremarkable. OTHER FINDINGS: None. IMPRESSION: Infiltrates in the right lower lobe and to lesser extent right middle lobe. Associated right pleural effusion. Small left pleural effusion and adjacent compressive atelectasis. No endobronchial lesions. No abnormalities within the trachea, lobar or segmental bronchi.
[2016-10-09] MEDS: Lidocaine 5% Patch TD SCH (12:16)
[2016-10-09] MEDS: oxyCODONE 5 mg Immediate Release Tab PO PRN (14:15)
[2016-10-09] MEDS ORDERED: Alum-Mag Hydrox-Simethicone Susp (30 mL) PO PRN (15:06)
[2016-10-09] MEDS ORDERED: Insulin Detemir 100 Units/ml Inj SC SCH (22:00)
[2016-10-09] MEDS: Insulin Lispro (humaLOG) 100 Units/ml Inj SC SCH (22:11)
[2016-10-10 00:40] VITALS: RESP 20
[2016-10-10] MEDS: metroNIDAZOLE 500mg/100ml NS 100 ML IVPB SCH ×2 (00:50→09:28)
[2016-10-10] MEDS: Potassium Chl 20 mEq in NS 1,000 ML IV SCH ×3 (02:40→04:53)
--- NOTE | 2016-10-10 05:33 | CON ---
Room: 659. HISTORY OF PRESENT ILLNESS: This is a 55-year-old female with known history of type 2 insulin requiring diabetes presenting here with intractable nausea, dyspepsia and vomiting with supervening loose watery diarrhea and is now being referred for endocrine evaluation because of episodic bouts of symptomatic hypoglycemia, because of very nil and suboptimal oral intake at this time. Her insulin regimen has to be withheld as noted today. PAST MEDICAL HISTORY: As mentioned above, history of type 2 insulin requiring diabetes currently on a combination of Lantus given at 20 units subq at bedtime daily with Humalog given at 18 units before breakfast and 20 units before lunch and dinner with near optimal metabolic control of her diabetic condition at home. History of hypothyroidism currently on low-dose levothyroxine replacement therapy with 50 mcg once daily as given, history of hypertension and dyslipidemia, history of diabetic retinopathy, and painful polyneuropathy especially in the lower extremities. History of coronary artery disease with previous coronary stent placement shows a history of peripheral arterial disease and vasculopathy. History of generalized anxiety and depression and has been on multiple anxiolytic and psychotropic medications. Other prior cholecystectomy and appendectomy as noted. History of chronic anemia and her prior upper and lower endoscopies showed no significant source of bleeding except for nonbleeding internal hemorrhoids. History of recent C. difficile infection as noted. FAMILY HISTORY: Positive for hypertension and diabetes. SOCIAL HISTORY: The patient has supportive family. She currently lives with her son and admits to nicotine dependence as noted. She also has prior chemical dependence, on narcotic analgesics because of chronic pain syndrome. REVIEW OF SYSTEMS: As mentioned above, admits to generalized body weakness with history of fatigability and tiredness and suboptimal energy level. Also admits to recent fever, rigors and chills as noted, also admits to episodic dizziness and lightheadedness worse on the day of admission. Admits to recent right pleuritic chest pain with precordial tightness and progressive shortness of breath especially on exertion. Her oral intake has been variable and suboptimal with nausea, dyspepsia and episodic vomiting episodes and supervening loose watery diarrhea. Also admits to have history of constipation. PHYSICAL EXAMINATION: GENERAL: This is a female in no apparent distress. VITAL SIGNS: Blood pressure of 140/80, pulse of 100 beats per minute and regular, temperature 101 and respirations 20. Height is 4 feet 1 inch and weight is 105. HEENT: Head normocephalic. Eyes anicteric with pink conjunctivae. Funduscopy not possible at this time. Ears, nose, and throat otherwise normal. NECK: Supple. Thyroid gland is normal in size. No carotid bruits or cervical adenopathy. CARDIOPULMONARY: Adynamic precordium. S1 and S2 is rapid and regular. LUNGS: Shows scattered rhonchi. ABDOMEN: Flat, soft with positive bowel sounds.. EXTREMITIES: No peripheral edema. Pulses are +2 bilaterally. LABORATORY DATA: WBC is 12.1, hemoglobin of 8.9, hematocrit of 27.2, MCV 96.2 and platelets 229. Chemistry showed a BUN of 5, sodium 143, potassium 4.1, chloride 113, CO2 of 23, glucose is 75, creatinine is 0.5, albumin is 3.2, glucose levels have been quite low ranged from 58 to 69 and 79 mg per dL. Today's glucose values have been slightly higher at 225 to 242 mg per dL. ASSESSMENT: This is a 55-year-old female with uncontrolled and decompensated type 2 insulin requiring diabetes with intermittent symptomatic bouts of hypoglycemia with associated neuroglycopenic and hyperadrenergic manifestation related to the recent meal and suboptimal meal portions as noted with the continued insulin therapy as given. She also has acute right lower lobe pneumonia with possible bacteriemia as noted thereof. There is also recent underlying colitis as noted. There is also significant history of diabetic microvascular complications of retinopathy and painful polyneuropathy as noted. There is also significant diabetic macrovascular complications of coronary artery disease, cerebral arterial disease, and vasculopathy. PLAN: Plan of management as discussed with the patient and staff, we will modify current insulin regimen because of the variable and suboptimal meal portions at this time and will lower the basal and bolus insulin regimen as ordered. We will lower the Humalog to 6 units subq t.i.d. before meals to start tomorrow morning as ordered. We will also modify the coverage scale to very very low dose algorithm using Humalog insulin as given. We will also lower the basal insulin with Levemir to e given at 6 units subq at bedtime daily to start tonight. We will titrate incrementally as her oral intake improves accordingly. We will also obtain a repeat thyroid study and adjust the dose regimen accordingly. We will obtain a hemoglobin A1c to confirm her prior glycemic control, and we will obtain serial chemistries and supplement accordingly as needed. We will also continue the IV hydration as given. We will follow and advice accordingly. Audra Ruth MD
[2016-10-10] MEDS: Levothyroxine 50 MCG TAB PO SCH (06:19)
[2016-10-10 07:34] LABS: BASO # 0.1 K/uL (0.0-0.2); BASO % 0.9 % (0.0-2.0); EOS # 0.1 K/uL (0.0-0.7); EOS % 1.7 % (0.0-4.0); LYMPH # 1.9 K/uL (1.0-4.3); LYMPH % 30.7 % (20.0-40.0); MEAN CORPUSCULAR HEMOGLOBIN 32.8 pg (27.0-31.0); MEAN CORPUSCULAR HGB CONC 34.3 g/dL (33.0-37.0); MEAN PLATELET VOLUME 8.5 fl (7.2-11.7); MONO # 0.7 K/uL (0.0-0.8); MONO % 11.1 % (0.0-10.0); NEUT # 3.3 K/uL (1.8-7.0); NEUT % 55.6 % (50.0-75.0); NRBC % 0.1 % (0.0-0.0); RBC 2.75 Mil/uL (3.80-5.20); RED CELL DISTRIBUTION WIDTH 14.2 % (11.5-14.5)
[2016-10-10] MEDS: Insulin Lispro (humaLOG) 100 Units/ml Inj SC SCH ×7 (07:35→22:05)
[2016-10-10 07:36] LABS: ALB/GLOB RATIO 0.9 (1.0-2.1); ALBUMIN 2.9 g/dL (3.5-5.0); ALT/SGPT 43 U/L (9-52); AST/SGOT 61 U/L (14-36); BLOOD UREA NITROGEN 8 mg/dl (7-17); GFR AFRICAN-AMERICAN > 60; GFR NON-AFRICAN AMERICAN > 60; HDL CHOLESTEROL 20 MG/DL (30-70)
[2016-10-10 07:46] LABS: T4 6.99 ug/dl (5.5-11.0)
[2016-10-10 07:49] LABS: MEAN CELL VOLUME 95.5 fl (81.0-99.0)
[2016-10-10 07:51] LABS: LDL CHOLESTEROL < 30 mg/dL (0-129)
[2016-10-10] MEDS: Saccharomyces Boulardi 250 mg Cap PO SCH ×2 (09:29→17:47)
[2016-10-10] MEDS: levoFLOXacin 750 mg in D5W 750 MG/150 ML BAG IVPB SCH (09:30)
[2016-10-10] MEDS: Enoxaparin 40 mg Syringe SC SCH (09:31)
[2016-10-10] MEDS: Lidocaine 5% Patch TD SCH (09:31)
[2016-10-10] MEDS: oxyCODONE 5 mg Immediate Release Tab PO PRN (09:51)
--- NOTE | 2016-10-10 11:31 | CP.PCM.PN ---
Subjective - Date & Time of Evaluation Date of Evaluation: 10/10/16 Time of Evaluation: 06:45 - Subjective Subjective: No acute overnight events. Pt denies any diarrhea. States she had 1 BM overnight that was well formed. Cough is slightly improved from yesterday. Denies fever, chills, n/v/d, chest pain, SOB, or abdominal pain. Objective - Vital Signs/Intake and Output Vital Signs (last 24 hours): Temp Pulse Resp BP Pulse Ox 98.5 F 88 20 150/80 97 10/10/16 07:25 10/10/16 07:25 10/10/16 07:25 10/10/16 07:25 10/10/16 07:25 - Medications Medications: Current Medications Acetaminophen (Tylenol 325mg Tab) 650 mg PO Q6 PRN PRN Reason: Fever >100.4 F Last Admin: 10/07/16 00:32 Dose: 650 mg Acetaminophen (Tylenol 325mg Tab) 650 mg PO Q6 PRN PRN Reason: Headache Last Admin: 10/08/16 23:02 Dose: 650 mg Al Hydrox/Mg Hydrox/Simethicone (Maalox Plus 30 Ml) 30 ml PO Q6 PRN PRN Reason: Indigestion / Heartburn Last Admin: 10/09/16 15:39 Dose: 30 ml Albuterol (Ventolin Hfa 90 Mcg/Actuation (8 G)) 2 puff IH Q4H PRN PRN Reason: Shortness of Breath Atorvastatin Calcium (Lipitor) 40 mg PO DAILY [facility] Last Admin: 10/10/16 09:31 Dose: 40 mg Dextrose (Dextrose 50% Inj) 0 ml IV STAT PRN; Protocol PRN Reason: Hyglycemia Protocol Dextrose (Glutose 15) 0 gm PO ONCE PRN; Protocol PRN Reason: Hypoglycemia Protocol Enoxaparin Sodium (Lovenox) 40 mg SC DAILY [facility] PRN Reason: Protocol Last Admin: 10/10/16 09:31 Dose: 40 mg Glucagon (Glucagen Diagnostic Kit) 0 mg IM STAT PRN; Protocol PRN Reason: Hypoglycemia Protocol Levofloxacin/Dextrose (Levaquin 750mg) 750 mg in 150 mls @ 100 mls/hr IVPB DAILY [facility] Last Admin: 10/10/16 09:30 Dose: 100 mls/hr Insulin Detemir (Levemir) 6 units SC HS [facility] Last Admin: 10/09/16 22:19 Dose: 6 u Insulin Human Lispro (Humalog) 6 units SC AC [facility] Last Admin: 10/10/16 09:29 Dose: 6 u Insulin Human Lispro (Humalog) 0 units SC ACHS [facility] PRN Reason: Protocol Last Admin: 10/10/16 07:35 Dose: Not Given Levothyroxine Sodium (Synthroid) 50 mcg PO DAILY@0630 [facility] Last Admin: 10/10/16 06:19 Dose: 50 mcg Lidocaine (Lidoderm) 2 ea TD DAILY [facility] Last Admin: 10/10/16 09:31 Dose: 2 ea Losartan Potassium (Cozaar) 50 mg PO DAILY [facility] Mirtazapine (Remeron) 15 mg PO [facility] Last Admin: 10/09/16 22:10 Dose: 15 mg Ondansetron HCl (Zofran Inj) 4 mg IVP Q6 PRN PRN Reason: Nausea/Vomiting Oxycodone HCl (Oxycodone Immediate Release Tab) 15 mg PO Q8 PRN PRN Reason: Pain, severe (8-10) Stop: 10/12/16 17:01 Last Admin: 10/10/16 09:51 Dose: 15 mg Quetiapine Fumarate (Seroquel) 300 mg PO [facility] Last Admin: 10/09/16 22:10 Dose: 300 mg Saccharomyces Boulardii (Florastor) 250 mg PO BID [facility] Last Admin: 10/10/16 09:29 Dose: 250 mg - Labs Labs: 10/10/16 06:20 10/10/16 06:20 - Constitutional Appears: Well, No Acute Distress - ENT Exam ENT Exam: Mucous Membranes Moist - Respiratory Exam Respiratory Exam: Rales Additional comments: Rales in right lower-mid lung base (improved from yesterday). No wheezes, use of accessory muscles. Pt talking comfortably - Cardiovascular Exam Cardiovascular Exam: REGULAR RHYTHM, +S1, +S2 - GI/Abdominal Exam GI & Abdominal Exam: Soft, Normal Bowel Sounds. absent: Distended, Guarding, Tenderness, Organomegaly - Neurological Exam Neurological Exam: Alert, Oriented x3 Assessment and Plan (1) Colitis Status: Acute (2) Pneumonia Status: Acute - Assessment and Plan (Free Text) Assessment: 55 y/o F with PMH including HTN, IDDM2, Hypothyroidism and Cdif infection in June 2016 admitted for Right lower lobe pneumonia and Colitis. Plan: Colitis-CT abdomen w/ PO & IV contrast detected mural thickening of ascending colon consistent with non-specific colitis, Undetermined etiology. History of C Dif in June 2016, I.D. input Dr. Nowak appreciated -Frequency of BM decreasing, afebrile, no leukocytosis -C. Diff Negative x 2, Stool Cx negative -1 Dose of Bentyl given for cramps -Zofran 4mg IV Q6h PRN nausea -FOBT +, Hemodynamically stable, H/H stable, Pt has a hx of non bleeding hemorrhoids -GI Consults appreciated: GI symptoms resolved. D/C ABX. Gastrointestinal symptoms likely infectious vs Opiod withdrawals (Pt is on Oxycodone at home). Last Endo/Colonoscopy done (07/18) was normal, Rectal exam negative for hematochezia or melena. Order H. Pylori stool antigen to determine if H. Pylori infection was eradicated. -Restarted on Oxycodone 15mg (home dose) Plan: Symptoms are resolving, Flagyl D/C'd, F/U Stool electrolytes and cultures , Legionella, H Pylori Stool Antigen Right Lower Lobe Pneumonia, community acquired- I.D. input Dr. Nowak appreciated -Resolving; -Continue with Levofloxacin 750mg IV daily -HIV 1&2 ABX negative -Repeat Cxray (10/09): Mild increase in right basilar infiltrate, trace pleural effusions. Left lung clear -Chest CT: Infiltrates in the right lower lobe and to lesser extent right middle lobe. Associated right pleural effusion. Plan: C/w Abx as per ID. Pt can do a repeat Chest CT outpatient for resolution. Hypokalemia- 4.1 today -I.V. Fluids with KCL 20meq -Resolved Sepsis- Resolved -Pt has been afebrile for 72 hrs, no leukocytosis, Vitals wnl -Urine culture- contaminated will get straight cath urine culture. Repeat UCx pending -Blood culture negative x2 -Receiving levofloxacin 750mg IV daily + flagyl 500mg IV Q8H continue current ABX as per I.D. Insulin Dependent Diabetes Mellitus, Type 2, with hyperglycemia -Pt has had a series of hypoglycemic episodes (50's, 60's) so her Insulin was D/ C for now. Will monitor closely -ISS -Accuchecks ACHS -Hypoglycemia protocol Anemia, undetermined etiology- FOBT positive -Will repeat FOBT currently hemodynamically stable, will get orthostatics, currently asymptomatic -Colonoscopy performed on 07/24/16 normal other than non-bleeding internal hemorrhoids -FOBT- Positive -Vit B12, Folate, Retic count, Iron studies ordered Hypothyroidism -Last TSH: 1.27 on 07/04/16 -Continue Levothyroxine 50mcg PO daily Anxiety d/o -Taking xanax 0.5mg PO TID -Well controlled DVT Prophylaxis -Lovenox 40mg SC daily
--- NOTE | 2016-10-10 11:50 | CP.PCM.PN ---
<Bailey Gardiner - Last Filed: 10/10/16 11:50> Subjective - Date & Time of Evaluation Date of Evaluation: 10/10/16 Time of Evaluation: 07:10 - Subjective Subjective: GI Fellow PGY4 Progress Note Pt seen and evaluated at bedside, pt reports feeling much better this morning with no more abdominal pain, nausea, vomiting or diarrhea. Says her appetite is improving and she is eating food without any abdominal cramps. ROS: A 12pt ROS was obtained and was negative except as above. Objective - Vital Signs/Intake and Output Vital Signs (last 24 hours): Temp Pulse Resp BP Pulse Ox 98.5 F 88 20 150/80 97 10/10/16 07:25 10/10/16 07:25 10/10/16 07:25 10/10/16 07:25 10/10/16 07:25 - Medications Medications: Current Medications Acetaminophen (Tylenol 325mg Tab) 650 mg PO Q6 PRN PRN Reason: Fever >100.4 F Last Admin: 10/07/16 00:32 Dose: 650 mg Acetaminophen (Tylenol 325mg Tab) 650 mg PO Q6 PRN PRN Reason: Headache Last Admin: 10/08/16 23:02 Dose: 650 mg Al Hydrox/Mg Hydrox/Simethicone (Maalox Plus 30 Ml) 30 ml PO Q6 PRN PRN Reason: Indigestion / Heartburn Last Admin: 10/09/16 15:39 Dose: 30 ml Albuterol (Ventolin Hfa 90 Mcg/Actuation (8 G)) 2 puff IH Q4H PRN PRN Reason: Shortness of Breath Atorvastatin Calcium (Lipitor) 40 mg PO DAILY [facility] Last Admin: 10/10/16 09:31 Dose: 40 mg Dextrose (Dextrose 50% Inj) 0 ml IV STAT PRN; Protocol PRN Reason: Hyglycemia Protocol Dextrose (Glutose 15) 0 gm PO ONCE PRN; Protocol PRN Reason: Hypoglycemia Protocol Enoxaparin Sodium (Lovenox) 40 mg SC DAILY [facility] PRN Reason: Protocol Last Admin: 10/10/16 09:31 Dose: 40 mg Glucagon (Glucagen Diagnostic Kit) 0 mg IM STAT PRN; Protocol PRN Reason: Hypoglycemia Protocol Levofloxacin/Dextrose (Levaquin 750mg) 750 mg in 150 mls @ 100 mls/hr IVPB DAILY [facility] Last Admin: 10/10/16 09:30 Dose: 100 mls/hr Insulin Detemir (Levemir) 6 units SC HS [facility] Last Admin: 10/09/16 22:19 Dose: 6 u Insulin Human Lispro (Humalog) 6 units SC AC [facility] Last Admin: 10/10/16 09:29 Dose: 6 u Insulin Human Lispro (Humalog) 0 units SC ACHS [facility] PRN Reason: Protocol Last Admin: 10/10/16 07:35 Dose: Not Given Levothyroxine Sodium (Synthroid) 50 mcg PO DAILY@0630 [facility] Last Admin: 10/10/16 06:19 Dose: 50 mcg Lidocaine (Lidoderm) 2 ea TD DAILY [facility] Last Admin: 10/10/16 09:31 Dose: 2 ea Losartan Potassium (Cozaar) 50 mg PO DAILY [facility] Mirtazapine (Remeron) 15 mg PO [facility] Last Admin: 10/09/16 22:10 Dose: 15 mg Ondansetron HCl (Zofran Inj) 4 mg IVP Q6 PRN PRN Reason: Nausea/Vomiting Oxycodone HCl (Oxycodone Immediate Release Tab) 15 mg PO Q8 PRN PRN Reason: Pain, severe (8-10) Stop: 10/12/16 17:01 Last Admin: 10/10/16 09:51 Dose: 15 mg Quetiapine Fumarate (Seroquel) 300 mg PO [facility] Last Admin: 10/09/16 22:10 Dose: 300 mg Saccharomyces Boulardii (Florastor) 250 mg PO BID [facility] Last Admin: 10/10/16 09:29 Dose: 250 mg - Labs Labs: 10/10/16 06:20 10/10/16 06:20 - Constitutional Appears: Non-toxic, No Acute Distress - Head Exam Head Exam: ATRAUMATIC, NORMAL INSPECTION, NORMOCEPHALIC - Eye Exam Eye Exam: EOMI, Normal appearance, PERRL Pupil Exam: PERRL - ENT Exam ENT Exam: Mucous Membranes Moist, Normal Exam - Neck Exam Neck Exam: Full ROM, Normal Inspection - Respiratory Exam Respiratory Exam: Rhonchi, NORMAL BREATHING PATTERN - Cardiovascular Exam Cardiovascular Exam: RRR, +S1, +S2 - GI/Abdominal Exam GI & Abdominal Exam: Soft, Normal Bowel Sounds. absent: Guarding, Rigid, Tenderness - Rectal Exam Rectal Exam: Deferred - Extremities Exam Extremities Exam: Full ROM, Normal Inspection - Back Exam Back Exam: NORMAL INSPECTION - Neurological Exam Neurological Exam: Alert, Awake, Oriented x3 - Psychiatric Exam Psychiatric exam: Normal Affect, Normal Mood - Skin Skin Exam: Dry, Intact, Normal Color, Warm Assessment and Plan - Assessment and Plan (Free Text) Assessment: This is a 55yF pw nonproductive cough, abdominal pain, vomiting and diarrhea. 1.Colitis 2.Anemia 3.Hx H.pylori Infection 4.CAP 5.Hx Cdiff Plan: -Continue Supportive care for PNA with abx per primary team -GI symptoms resolved -Stool studies pending, cdiff negativex2 -Diet as tolerated -Recent Hx H.pylori-stool antigen test to determine if H.pylori infection eradicated pending, if positive will start treatment with second line abx for possible resistance -Anemia, Hgb stable, hemodynamically stable, no active GI bleed, rectal exam negative for melena or hematochezia, prior EGD/Colonoscopy 07/2016 negative for any source of bleed, will order CBC to monitor Hgb today -No plan for endoscopic evaluation at this time with active infections and no active GI bleed -Will sign off. Please call with any questions or concerns. <Des Allred MD - Last Filed: 10/10/16 12:15> Objective - Vital Signs/Intake and Output Vital Signs (last 24 hours): Temp Pulse Resp BP Pulse Ox 98.5 F 88 20 150/80 97 10/10/16 07:25 10/10/16 07:25 10/10/16 07:25 10/10/16 07:25 10/10/16 07:25 - Medications Medications: Current Medications Acetaminophen (Tylenol 325mg Tab) 650 mg PO Q6 PRN PRN Reason: Fever >100.4 F Last Admin: 10/07/16 00:32 Dose: 650 mg Acetaminophen (Tylenol 325mg Tab) 650 mg PO Q6 PRN PRN Reason: Headache Last Admin: 10/08/16 23:02 Dose: 650 mg Al Hydrox/Mg Hydrox/Simethicone (Maalox Plus 30 Ml) 30 ml PO Q6 PRN PRN Reason: Indigestion / Heartburn Last Admin: 10/09/16 15:39 Dose: 30 ml Albuterol (Ventolin Hfa 90 Mcg/Actuation (8 G)) 2 puff IH Q4H PRN PRN Reason: Shortness of Breath Atorvastatin Calcium (Lipitor) 40 mg PO DAILY [facility] Last Admin: 10/10/16 09:31 Dose: 40 mg Dextrose (Dextrose 50% Inj) 0 ml IV STAT PRN; Protocol PRN Reason: Hyglycemia Protocol Dextrose (Glutose 15) 0 gm PO ONCE PRN; Protocol PRN Reason: Hypoglycemia Protocol Enoxaparin Sodium (Lovenox) 40 mg SC DAILY [facility] PRN Reason: Protocol Last Admin: 10/10/16 09:31 Dose: 40 mg Glucagon (Glucagen Diagnostic Kit) 0 mg IM STAT PRN; Protocol PRN Reason: Hypoglycemia Protocol Levofloxacin/Dextrose (Levaquin 750mg) 750 mg in 150 mls @ 100 mls/hr IVPB DAILY [facility] Last Admin: 10/10/16 09:30 Dose: 100 mls/hr Insulin Detemir (Levemir) 6 units SC HS [facility] Last Admin: 10/09/16 22:19 Dose: 6 u Insulin Human Lispro (Humalog) 6 units SC AC [facility] Last Admin: 10/10/16 09:29 Dose: 6 u Insulin Human Lispro (Humalog) 0 units SC ACHS [facility] PRN Reason: Protocol Last Admin: 10/10/16 07:35 Dose: Not Given Levothyroxine Sodium (Synthroid) 50 mcg PO DAILY@0630 [facility] Last Admin: 10/10/16 06:19 Dose: 50 mcg Lidocaine (Lidoderm) 2 ea TD DAILY [facility] Last Admin: 10/10/16 09:31 Dose: 2 ea Losartan Potassium (Cozaar) 50 mg PO DAILY [facility] Mirtazapine (Remeron) 15 mg PO [facility] Last Admin: 10/09/16 22:10 Dose: 15 mg Ondansetron HCl (Zofran Inj) 4 mg IVP Q6 PRN PRN Reason: Nausea/Vomiting Oxycodone HCl (Oxycodone Immediate Release Tab) 15 mg PO Q8 PRN PRN Reason: Pain, severe (8-10) Stop: 10/12/16 17:01 Last Admin: 10/10/16 09:51 Dose: 15 mg Quetiapine Fumarate (Seroquel) 300 mg PO [facility] Last Admin: 10/09/16 22:10 Dose: 300 mg Saccharomyces Boulardii (Florastor) 250 mg PO BID [facility] Last Admin: 10/10/16 09:29 Dose: 250 mg - Labs Labs: 10/10/16 06:20 10/10/16 06:20 Attending/Attestation - Attestation I have personally seen and examined this patient.: Yes I have fully participated in the care of the patient.: Yes I have reviewed all pertinent clinical information, including history, physical exam and plan: Yes Notes (Text): 10/10/16 12:14 Patient seen with GI fellow on rounds. This is a 55 yr old F presented with nonproductive cough, abdominal pain, vomiting and diarrhea after two week course of antibiotics for H pylori. Also found to have community acquired pneumonia. Bidirectional luminal exam for anemia work up was negative for ulcers or mass lesions in july 2016. Stool infectious work up for C difficile x 2 is negative and O and P negative.Diet as tolerated. Needs repeat Stool for H pylori antigen to confirm eradication for ongoing symptoms. GI symptoms have resolved. Will sign off now. Thank you for letting us participate in the care of your patient
--- NOTE | 2016-10-10 20:07 | PN ---
ENDO FOLLOWUP NOTE LOCATION: Room 659. SUBJECTIVE: This is a 55-year-old female with recent uncontrolled type 2 insulin requiring diabetes now being followed closely for metabolic management. Her oral intake remains quite variable and suboptimal at this time with persistent nausea, dyspepsia, vague upper abdominal pains as noted. Her glucose values today have ranged from 90 to 115 and 126 mg/dL. Latest chemistries showed a BUN of 8, sodium 140, potassium 3.8, chloride 112, CO2 of 21, glucose 105, and creatinine 0.7. Her glucose average dropped at noontime today, down to 40 mg/dL. Her albumin remains low at 2.9 as noted. So at this time, we will modify once again her basal and bolus insulin regimen to allow for dose equilibration. ASSESSMENT: A 55-year-old female with uncontrolled and decompensated type 2 insulin requiring diabetes presenting here with acute right lower lobe pneumonia and concomitant colitis with increased insulin resistant thereof and extremes of glycemic fluctuations as noted. So at this time we will modify once again. She also has diabetic microvascular complications of retinopathy and painful polyneuropathy. Moreover, she has diabetic macrovascular complications of coronary artery disease with previous coronary stent placement and peripheral arterial disease vasculopathy as noted. PLAN OF MANAGEMENT: We will lower once again a Humalog to 3 units subQ t.i.d. before meals to start at dinnertime today as ordered. We will titrate incrementally as indicated to optimize metabolic control. We will also continue the low dose correction scale using Humalog insulin as stated. Moreover, we will lower the basal insulin with Levemir to be given as 4 units subQ at bedtime daily. We will titrate incrementally as indicated to optimize metabolic control. We will follow and advise accordingly. We will actually be obtaining serial chemistry and supplement accordingly as needed. Audra Ruth MD
[2016-10-10] MEDS ORDERED: Insulin Detemir 100 Units/ml Inj SC SCH (22:00)
[2016-10-11] MEDS: Levothyroxine 50 MCG TAB PO SCH (06:28)
[2016-10-11 08:15] VITALS: BP 135/78; PULSE 85; TEMP 98.6; O2SAT 95
[2016-10-11] MEDS: oxyCODONE 5 mg Immediate Release Tab PO PRN (09:37)
[2016-10-11] MEDS: Lidocaine 5% Patch TD SCH (09:39)
[2016-10-11] MEDS: Saccharomyces Boulardi 250 mg Cap PO SCH (09:41)
[2016-10-11] MEDS: Insulin Lispro (humaLOG) 100 Units/ml Inj SC SCH ×4 (09:41→13:12)
[2016-10-11] MEDS: levoFLOXacin 750 mg in D5W 750 MG/150 ML BAG IVPB SCH (09:43)
[2016-10-11] MEDS: Enoxaparin 40 mg Syringe SC SCH (09:44)
[2016-10-11] MEDS ORDERED: Azithromycin 500 MG in Sodium Chloride 0.9% 250 ML IVPB SCH (15:00)
--- NOTE | 2016-10-11 15:10 | CP.PCM.DIS ---
Provider - Provider Date of Admission: 10/06/16 18:29 Attending physician: Claudia Baker MD Time Spent in preparation of Discharge (in minutes): 35 Diagnosis - Discharge Diagnosis (1) Colitis Status: Resolved (2) Pneumonia Status: Acute Hospital Course - Lab Results Lab Results: Micro Results 10/08/16 09:00 Urine,Catheterized Urine Culture - Final No Growth (<1,000 CFU/ML) Most Recent Lab Values WBC 6.0 K/uL (4.8-10.8) 10/10/16 06:20 RBC 2.75 Mil/uL (3.80-5.20) L 10/10/16 06:20 Hgb 9.0 g/dL (12.0-16.0) L 10/10/16 06:20 Hct 26.2 % (34.0-47.0) L 10/10/16 06:20 MCV 95.5 fl (81.0-99.0) D 10/10/16 06:20 MCH 32.8 pg (27.0-31.0) H 10/10/16 06:20 MCHC 34.3 g/dL (33.0-37.0) 10/10/16 06:20 RDW 14.2 % (11.5-14.5) 10/10/16 06:20 Plt Count 363 K/uL (130-400) 10/10/16 06:20 MPV 8.5 fl (7.2-11.7) 10/10/16 06:20 Neut % (Auto) 55.6 % (50.0-75.0) 10/10/16 06:20 Lymph % (Auto) 30.7 % (20.0-40.0) 10/10/16 06:20 [place] % (Auto) 11.1 % (0.0-10.0) H 10/10/16 06:20 Eos % (Auto) 1.7 % (0.0-4.0) 10/10/16 06:20 Baso % (Auto) 0.9 % (0.0-2.0) 10/10/16 06:20 Neut # 3.3 K/uL (1.8-7.0) 10/10/16 06:20 Lymph # 1.9 K/uL (1.0-4.3) 10/10/16 06:20 [place] # 0.7 K/uL (0.0-0.8) 10/10/16 06:20 Eos # 0.1 K/uL (0.0-0.7) 10/10/16 06:20 Baso # 0.1 K/uL (0.0-0.2) 10/10/16 06:20 Neutrophils % (Manual) 71 % (42-75) 10/05/16 14:43 Band Neutrophils % 6 % (0-2) H 10/05/16 14:43 Lymphocytes % (Manual) 10 % (20-50) L 10/05/16 14:43 Monocytes % (Manual) 13 % (0-10) H 10/05/16 14:43 Platelet Estimate Normal (NORMAL) 10/05/16 14:43 Large Platelets Present 10/05/16 14:43 Poikilocytosis (manual Slight 10/05/16 14:43 Anisocytosis (manual) Slight 10/05/16 14:43 Microcytosis (manual) Slight 10/05/16 14:43 ESR 111 mm/hr (0-30) H 10/07/16 05:30 Retic Count 0.6 % (0.5-1.5) D 10/06/16 05:30 pO2 38 mm/Hg (30-55) 10/05/16 14:45 VBG pH 7.37 (7.32-7.43) 10/05/16 14:45 VBG pCO2 28 mmHg (40-60) L 10/05/16 14:45 VBG HCO3 18.3 mmol/L 10/05/16 14:45 VBG Total CO2 17.1 mmol/L (22-28) L 10/05/16 14:45 VBG O2 Sat (Calc) 81.2 % (40-65) H 10/05/16 14:45 VBG Base Excess -7.6 mmol/L (0.0-2.0) L 10/05/16 14:45 VBG Potassium 4.7 mmol/L (3.6-5.2) 10/05/16 14:45 Sodium 125.0 mmol/L (132-148) L 10/05/16 14:45 Chloride 91.0 mmol/L (98-107) L 10/05/16 14:45 Glucose 553 mg/dL (65-105) H* D 10/05/16 14:45 Lactate 1.2 mmol/L (0.7-2.1) 10/05/16 14:45 FiO2 21.0 % 10/05/16 14:45 Crit Value Called To Dr julia rhodes 10/05/16 14:45 Crit Value Called By Rt 10/05/16 14:45 Crit Value Read Back Y 10/05/16 14:45 Blood Gas Notified Time 1455 10/05/16 14:45 Sodium 140 mmol/l (132-148) 10/10/16 06:20 Potassium 3.8 MMOL/L (3.6-5.0) 10/10/16 06:20 Chloride 112 mmol/L (98-107) H 10/10/16 06:20 Carbon Dioxide 21 mmol/L (22-30) L 10/10/16 06:20 Anion Gap 11 (10-20) 10/10/16 06:20 BUN 8 mg/dl (7-17) 10/10/16 06:20 Creatinine 0.7 mg/dL (0.7-1.2) 10/10/16 06:20 Est GFR ( Amer) > 60 10/10/16 06:20 Est GFR (Non-Af Amer) > 60 10/10/16 06:20 POC Glucose (mg/dL) 147 mg/dL (65-110) H 10/11/16 10:56 Random Glucose 105 mg/dL (65-105) 10/10/16 06:20 Hemoglobin A1c 10.2 % (4.2-6.5) H 10/06/16 05:30 Lactic Acid 1.0 MMOL/L (0.7-2.1) 10/05/16 14:43 Calcium 8.0 mg/dL (8.4-10.2) L 10/10/16 06:20 Iron 22 ug/dL (37-170) L 10/06/16 05:30 TIBC 172 ug/dL (250-450) L 10/06/16 05:30 % Saturation 13 % (20-55) L 10/06/16 05:30 Ferritin 935.0 ng/mL 10/06/16 05:30 Total Bilirubin 0.3 mg/dl (0.2-1.3) 10/10/16 06:20 AST 61 U/L (14-36) H D 10/10/16 06:20 ALT 43 U/L (9-52) 10/10/16 06:20 Alkaline Phosphatase 240 U/L (38-126) H D 10/10/16 06:20 Troponin I < 0.0120 ng/mL (0.00-0.120) 10/05/16 14:43 Total Protein 6.1 G/DL (6.3-8.2) L 10/10/16 06:20 Albumin 2.9 g/dL (3.5-5.0) L 10/10/16 06:20 Globulin 3.2 gm/dL (2.2-3.9) 10/10/16 06:20 Albumin/Globulin Ratio 0.9 (1.0-2.1) L 10/10/16 06:20 Triglycerides 103 mg/DL (0-149) D 10/10/16 06:20 Cholesterol 62 mg/dL (0-199) 10/10/16 06:20 LDL Cholesterol Direct < 30 mg/dL (0-129) 10/10/16 06:20 HDL Cholesterol 20 MG/DL (30-70) L 10/10/16 06:20 Amylase 48 U/L (30-110) 10/05/16 14:43 Lipase 30 U/L (23-300) 10/05/16 14:43 Vitamin B12 > 1000 pg/mL (239-931) H 10/06/16 05:30 Folate > 20.0 ng/mL 10/06/16 05:30 Procalcitonin 0.89 NG/ML (0.19-0.49) H 10/07/16 05:30 Thyroxine (T4) 6.99 ug/dl (5.5-11.0) 10/10/16 06:20 TSH 3rd Generation 4.09 mIU/ML (0.46-4.68) 10/10/16 06:20 Venous Blood Potassium 4.7 mmol/L (3.6-5.2) 10/05/16 14:45 Urine Color Straw (YELLOW) 10/05/16 18:13 Urine Clarity Clear (Clear) 10/05/16 18:13 Urine pH 6.0 (5.0-8.0) 10/05/16 18:13 Ur Specific [place] 1.018 (1.003-1.030) 10/05/16 18:13 Urine Protein 30 mg/dL (NEGATIVE) 10/05/16 18:13 Urine Glucose (UA) >=500 mg/dL (Normal) 10/05/16 18:13 Urine Ketones 20 mg/dL (NEGATIVE) 10/05/16 18:13 Urine Blood Small (NEGATIVE) 10/05/16 18:13 Urine Nitrate Negative (NEGATIVE) 10/05/16 18:13 Urine Bilirubin Negative (NEGATIVE) 10/05/16 18:13 Urine Urobilinogen 0.2-1.0 mg/dL (0.2-1.0) 10/05/16 18:13 Ur Leukocyte Esterase Neg Clifford/uL (Negative) 10/05/16 18:13 Urine RBC (Auto) 1 /hpf (0-3) 10/05/16 18:13 Urine Microscopic WBC 1 /hpf (0-5) 10/05/16 18:13 Stool Occult Blood Positive (NEGATIVE) H 10/08/16 14:45 Stool H. pylori Ag Not detected (Not Detected) 10/10/16 12:47 C. difficile Ag & Toxin Negative (NEGATIVE) 10/08/16 14:45 H. pylori Source Stool 10/10/16 12:47 HIV 1&2 Antibody Screen Negative (NEGATIVE) 10/06/16 05:30 Urine Legionella Ag Detected (Not Detected) H 10/06/16 16:06 - Hospital Course Hospital Course: Discharge Diagnosis: Pneumonia, Colitis Consults: Gastroenterology, Infectious Disease, Endocrinology Procedures: None Complications: None Hospital Course: 55 y/o F with PMH including HTN, IDDM2, Hypothyroidism and Cdif infection in June 2016 presented with cough and diarrhea and was admitted for Right lower lobe pneumonia and Colitis. Septic workup was negative. She was treated with Flagyl and Levoquin and her symptoms slowly improved. Stool Cx came back negative but a urine Legionella test came back positive. We placed her on Azithromycin for 2 weeks and will follow up in the clinic with Dr. Hong. During her hospital stay, she had multiple episodes of hypoglycemia and was seen by her technical designer, Dr. Ruth, who lowered her insulin dosages. She has made arrangements to follow up with Dr. Ruth outpatient to re-adjust her insulin levels as needed. On day of discharge, Pt's vitals were stable with no leukocytosis, diarrhea had resolved and cough was greatly improved from admission. Discharge Medications: Azithromycin 500mg PO once daily Atorvastatin 40mg PO daily Alprazolam 0.5mg PO q8 Aluminum Hydroxide 30ml PO q6 Levothyroxine 50mcg PO daily Losartan 50mg PO Daily Mirtazapine 15mg PO HS Quetiepine 300mg PO HS Humalog 3units SC AC Levemir 4units SC HS Discharge Plan: Condition upon discharge: Stable Activity: Ambulating without assistance Diet: Regular Date of next appointment: October [address] Hong Issues to be addressed at Follow Up: Resolution of PNU, Insulin regimen Discharge Exam - Head Exam Head Exam: ATRAUMATIC, NORMAL INSPECTION, NORMOCEPHALIC - ENT Exam ENT Exam: Mucous Membranes Moist - Respiratory Exam Respiratory Exam: NORMAL BREATHING PATTERN. absent: Accessory Muscle Use, Rales , Rhonchi, Wheezes, Respiratory Distress, Stridor - Cardiovascular Exam Cardiovascular Exam: REGULAR RHYTHM, +S1, +S2. absent: Systolic Murmur - GI/Abdominal Exam GI & Abdominal Exam: Normal Bowel Sounds, Soft. absent: Distended, Firm, Guarding, Rigid, Tenderness - Neurological Exam Neurological exam: Alert, Normal Gait, Oriented x3 - Psychiatric Exam Psychiatric exam: Normal Mood Discharge Plan - Discharge Medications Prescriptions: Insulin Lispro [Humalog (Insulin Lispro)] 3 unit SQ ACHS #1 cartridge - Follow Up Plan Condition: STABLE Disposition: HOME/ ROUTINE Instructions: How to Stop Smoking (GEN), Pneumococcal Vaccine for Adults (DC), Cigarette Smoking and Your Health (GEN) Additional Instructions: October 31 9:[address] Hong at [address]
--- NOTE | 2016-10-11 18:23 | PN ---
DATE: ENDO FOLLOWUP NOTE LOCATION: Room 659. SUBJECTIVE: This is a 55-year-old female with recent uncontrolled type 2 insulin requiring diabetes presenting here with low normal glycemic levels because of variable and suboptimal meal portions as noted. an acute right lower lobe pneumonia and also supervening nonspecific colitis with vomiting and diarrhea as noted. Her oral intake continues to be very poor and suboptimal at this time as noted. LABORATORY DATA: Her latest glucose values have ranged from 124 to 147 and 197 mg/dL. Latest chemistry shows a BUN of 8, sodium 140, potassium 3.8, chloride 112, CO2 of 21, glucose 105 and creatinine 0.7. Her thyroid studies have shown a T4 of 6.99 with a TSH of 4.09. PLAN: So at this time, we will continue the same levothyroxine given as 50 mcg once daily in the morning as ordered. We will also continue the same basal and bolus insulin regimen as adjusted with Levemir to be given as 4 units subcutaneous at bedtime daily as ordered. We will continue the Humalog given as 3 units subcutaneous t.i.d. before meals as given. We will titrate incrementally as indicated to optimize metabolic control. We will follow and advise accordingly. Audra Ruth MD
== END 2016-10-11 16:02 | disposition home or self-care (01) | DRG 871 ==
LOC: H.ER 12:59 → H.ERHOLD 17:58 → H.MEDSURG1 21:31 → OBSVTOIN 10-06 18:29
PROVIDERS: ADMIT Family Medicine Geriatric Medicine; ATTEND Family Medicine Geriatric Medicine
DX: A41.9 Sepsis, unspecified organism (principal); J18.9 Pneumonia, unspecified organism; E11.42 Type 2 diabetes mellitus with diabetic polyneuropathy; K52.9 Noninfective gastroenteritis and colitis, unspecified; J45.909 Unspecified asthma, uncomplicated; I10 Essential (primary) hypertension; F17.210 Nicotine dependence, cigarettes, uncomplicated; D64.9 Anemia, unspecified; E03.9 Hypothyroidism, unspecified; E11.319 Type 2 diabetes mellitus with unspecified diabetic retinopathy without macular edema; F41.8 Other specified anxiety disorders; E11.65 Type 2 diabetes mellitus with hyperglycemia; E11.649 Type 2 diabetes mellitus with hypoglycemia without coma; E11.59 Type 2 diabetes mellitus with other circulatory complications; I25.10 Atherosclerotic heart disease of native coronary artery without angina pectoris; J44.9 Chronic obstructive pulmonary disease, unspecified; E87.6 Hypokalemia; Z83.1 Family history of other infectious and parasitic diseases; Z79.4 Long term (current) use of insulin

== ENCOUNTER 2017-05-18 13:39 | Inpatient (IN) | payer MEDICARE, MEDICAID ==
[2017-05-18 13:39] VITALS: BMI 22.0
--- NOTE | 2017-05-18 14:21 | ED PDOC ---
HPI: Abdomen Time Seen by Provider: 05/18/17 14:06 Chief Complaint (Nursing): Abdominal Pain Chief Complaint (Provider): Abdominal pain History Per: Patient History/Exam Limitations: no limitations Onset/Duration Of Symptoms: Days Outside of [place] travel?: No Additional Complaint(s): 56yo female, who is under a pain management regimen under Dr. Colindres for chronic right sided hemicorporal pain of an unknown etiology. Patient is on a daily regimen of Oxycontin as per Dr. Colindres. For the past several days, patient reports vomiting and diarrhea and today she has severe epigastric pain. She admits to vomiting only once but diarrhea has been profuse over the last day or so. She reports her last dose of oxycontin was this morning. Patient is a poor historian so a full HPI is unavailable. Past Medical History Reviewed: Historical Data, Nursing Documentation, Vital Signs Vital Signs: Last Vital Signs Temp 97.5 F L 05/18/17 17:55 Pulse 93 H 05/18/17 17:55 Resp 17 05/18/17 17:55 BP 147/69 05/18/17 17:55 Pulse Ox 99 05/18/17 17:55 - Medical History PMH: Anemia, Anxiety, Asthma, CAD, Depression, Diabetes, Fractures (rib (left)) , Gastritis, HTN, Hyperthyroidism (pt is not sure what she has ), Hypothyroidism Denies: Arthritis, CHF, COPD, HIV, Hypercholesterolemia, Rheumatoid Arthritis - Surgical History Surgical History: Appendectomy, Cholecystectomy, Coronary Stent, Endoscopy, Tonsillectomy - Family History Family History: States: Unknown Family Hx - Immunization History Hx Tetanus Toxoid Vaccination: No Hx Influenza Vaccination: Yes Hx Pneumococcal Vaccination: Yes - Home Medications Home Medications: Ambulatory Orders Medication Instructions Recorded Albuterol HFA [Ventolin HFA 90 2 puff IH Q4H PRN 06/18/16 mcg/actuation (8 g)] Alprazolam [Xanax] 0.5 mg PO TID 06/18/16 Citalopram Hydrobromide 40 mg PO HS 06/18/16 [Citalopram HBr] Insulin Glargine,Hum.rec.anlog 20 units SC HS 06/18/16 [Lantus] Levothyroxine [Synthroid] 50 mcg PO DAILY 06/18/16 Lisinopril [Zestril] 10 mg PO DAILY 06/18/16 Mirtazapine [Remeron] 15 mg PO HS 06/18/16 Multivit-Min/FA/Lycopen/Lutein 1 tab PO DAILY 10/05/16 [Centrum Silver Tablet] QUEtiapine [SEROquel] 300 mg PO HS 10/05/16 Simvastatin [Zocor] 40 mg PO HS 10/05/16 oxyCODONE [oxyCODONE Immediate 15 mg PO QID PRN 10/05/16 Release Tab] Insulin Detemir [Levemir] 4 units SC HS vial 10/11/16 Insulin Lispro [Humalog (Insulin 3 unit SQ ACHS #1 cartridge 10/11/16 Lispro)] Levothyroxine [Synthroid] 50 mcg PO DAILY@0630 tab 10/11/16 Losartan [Cozaar] 50 mg PO DAILY tab 10/11/16 Saccharomyces Boulardi [Florastor] 250 mg PO BID cap 10/11/16 - Allergies Allergies/Adverse Reactions: Allergies Allergy/AdvReac Type Severity Reaction Status Date / Time Penicillins Allergy RASH Verified 10/05/16 13:07 lipitor AdvReac Intermediate RASH Uncoded 10/05/16 23:59 Review of Systems ROS Statement: Except As Marked, All Systems Reviewed And Found Negative Constitutional: Negative for: Fever, Chills Gastrointestinal: Positive for: Vomiting, Abdominal Pain, Diarrhea Physical Exam - Reviewed Nursing Documentation Reviewed: Yes Vital Signs Reviewed: Yes - Physical Exam Appears: Positive for: Non-toxic, Uncomfortable (writhing on stretcher, patient had to be asked multiple times to turn over) Skin: Positive for: Normal Color Neck: Positive for: Supple Cardiovascular/Chest: Positive for: Regular Rate, Rhythm Respiratory: Positive for: Normal Breath Sounds. Negative for: Respiratory Distress Gastrointestinal/Abdominal: Positive for: Soft, Tenderness (diffuse), Guarding ( voluntary guarding). Negative for: Rebound, Other (peritoneal signs) Extremity: Positive for: Normal ROM Neurologic/Psych: Positive for: Alert, Oriented - Laboratory Results Result Diagrams: 05/18/17 14:00 05/18/17 14:00 - ECG ECG: Positive for: Interpreted By Me ECG Rhythm: Positive for: Normal QRS, Sinus Rhythm, Nonspecific Changes Interpretation Of ECG: NSR,no acute changes O2 Sat by Pulse Oximetry: 99 (RA) Pulse Ox Interpretation: Normal Medical Decision Making Medical Decision Making: Impression: Epigastric pain of unknwon etiology, consider gastritis, peptic ulcer disease, GERD, drug seeking behavior. Plan: -- Labs -- Urinalysis -- XR Abdomen obstructive series -- Morphine 4mg IV Time: 1636 Case discussed with [facility] resident who will come and evaluate patient at bedside. Scribe Attestation: Documented by Ivania Velarde acting as a scribe for Ailyn Page MD. Provider Attestation: All medical record entries made by the Scribe were at my direction and personally dictated by me. I have reviewed the chart and agree that the record accurately reflects my personal performance of the history, physical exam, medical decision making, and the department course for this patient. I have also personally directed, reviewed, and agree with the discharge instructions and disposition. Disposition - Clinical Impression Clinical Impression: Hyperglycemia without ketosis - Patient ED Disposition Is Patient to be Admitted: Yes Doctor Will See Patient In The: Hospital - Disposition Disposition Time: 18:07 Condition: GUARDED - Pt Status Changed To: Hospital Disposition Of: Observation
[2017-05-18] MEDS ORDERED: Morphine 4 MG/ML VIAL ONE (14:32)
[2017-05-18 14:50] LABS: BASO # 0.1 K/uL (0.0-0.2); BASO % 0.8 % (0.0-2.0); EOS % 0.1 % (0.0-4.0); HEMOGLOBIN 12.3 g/dL (12.0-16.0); LYMPH # 1.3 K/uL (1.0-4.3); LYMPH % 10.8 % (20.0-40.0); MEAN CORPUSCULAR HEMOGLOBIN 31.7 pg (27.0-31.0); MEAN CORPUSCULAR HGB CONC 34.1 g/dL (33.0-37.0); MEAN PLATELET VOLUME 9.6 fl (7.2-11.7); MONO # 0.9 K/uL (0.0-0.8); MONO % 7.5 % (0.0-10.0); NEUT # 9.6 K/uL (1.8-7.0); NEUT % 80.8 % (50.0-75.0); NRBC % 0.1 % (0.0-0.0); RBC 3.88 Mil/uL (3.80-5.20); RED CELL DISTRIBUTION WIDTH 13.2 % (11.5-14.5); WHITE BLOOD COUNT 11.9 K/uL (4.8-10.8)
[2017-05-18] MEDS ORDERED: Insulin Regular 100 units/ml IV STA ×2 (14:50→15:33)
[2017-05-18 15:17] LABS: BLOOD UREA NITROGEN 20 mg/dl (7-17); CALCIUM 10.1 mg/dL (8.4-10.2); GFR AFRICAN-AMERICAN > 60; GFR NON-AFRICAN AMERICAN > 60
[2017-05-18 15:18] LABS: ALB/GLOB RATIO 1.3 (1.0-2.1); ALBUMIN 4.2 g/dL (3.5-5.0)
[2017-05-18 15:19] LABS: ALT/SGPT 23 U/L (9-52); AST/SGOT 19 U/L (14-36); LIPASE 96 U/L (23-300)
[2017-05-18 15:47] LABS: ABG ALLEN TEST YES; ARTERIAL BLOOD GAS HCO3 24.7 mmol/L (21-28); ARTERIAL BLOOD GAS HEMOGLOBIN 12.4 g/dL (11.7-17.4); ARTERIAL BLOOD GAS O2 CAPACITY 16.8 mL/dL (16-24); ARTERIAL BLOOD GAS O2 CONTENT 16.8 ML/dL (15-23); ARTERIAL BLOOD GAS O2 SAT 99.8 % (95-98); ARTERIAL BLOOD GAS PCO2 29 mm/Hg (35-45); ARTERIAL BLOOD GAS PH 7.49 (7.35-7.45); ARTERIAL BLOOD GAS PO2 104 mm/Hg (80-100)
[2017-05-18] MEDS ORDERED: Insulin Regular 100 units/ml ONE (16:28)
[2017-05-18] MEDS: Sodium Chloride 0.9% 1,000 ML IV SCH ×14 (16:29→23:41)
--- NOTE | 2017-05-18 17:03 | RAD ---
PROCEDURE: Radiographs of the chest and abdomen (obstructive series) HISTORY: Abdominal pain COMPARISON: Chest x-ray 10/09/2016 TECHNIQUE: AP radiograph of the chest, with upright and supine radiographs of the abdomen. FINDINGS: CHEST: Lungs: Clear. Cardiovascular: Normal size heart. No pulmonary vascular congestion. Pleura: No pleural fluid. No pneumothorax. Other findings: None. ABDOMEN AND PELVIS: Bowel: Unremarkable bowel gas pattern. No evidence of mechanical obstruction. Free air: None. Bones: Unremarkable. Other findings: Surgical clip is seen in the right upper quadrant. There appears to be a possible feeding tube overlying the abdomen although this should be correlated clinically. IMPRESSION: Unremarkable radiographs of chest and abdomen. No evidence of mechanical bowel obstruction.
[2017-05-18] MEDS ORDERED: Sodium Chloride 0.9% 1,000 ML IV SCH (18:15)
[2017-05-18] MEDS ORDERED: Dextrose 50% SYRINGE Inj (50 ml) IV PRN (18:34)
[2017-05-18] MEDS ORDERED: Glucagon Recombinant 1 mg Inj IM PRN (18:34)
--- NOTE | 2017-05-18 19:20 | CP.PCM.HP ---
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 Colindres.) presents to ED c/o epigastric diffuse abdominal pain started 3 week ago, worse today in the morning 10 am, epigastric , 8/10 intensity, sharp, not radiated, not alleviated or aggravated factors, associated with 5-7 non-bloddy vomiting and 5-7 non bloddy diarrhea. Patient denies fever, cough, nasal congestion, SOB, chest pain, palpitation, polyuria, polydipsia . On evaluation patient AAOx3, reports abd pain subisided with medications, no nausea. after meds. Patient reports taking his medications as usal and his son present reports she takes her medications by herself but unsure if she is comply or not. Patient did not bring list of her medications and does not remember some of them, even the son. PMD: [facility]. last seen 12/05/16 Dr Fraire Pain management: Dr. 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 Lipitor Meds: BY ECW( levothyroxin 50 mcg day, Lisinopril 10 mg daily, Citalopran 40 mg daily, Mirtazaine 15 mg po daily, Quetiapine 400 mg daily, Alprazolan 0.5 mg TID, Atorvastatin 40 mg daily, Humalog 22 unit BID, LAntus 24 units bedtime. PSurhx: Apendicectomy, cholecystectomy, tonsillectomy, stent. PShx: Denies ETOH, rect drugs, smoke 8 cig/day for 42 years ED course VS: 147/69 HR: 93 PE: TD to palpation epigastrium, no rebound, no guarding Labs: CBC: 11.9>12.3<349 CMP: Anion Gap: 27 Bun/Cr : 20/0.7 Urine: pending ABG: PH: 7.49 CO2:29 Alk respiratory HcO3: 24.7 normal Imaging: Abd series: normal Meds: Insulin IV 10 units x 2 morphine 4 mg iv NS 2 liters IV Prochlorperazine 5 m iv Status: Full code Son Akshat: [phone] Present on Admission - Present on Admission Any Indicators Present on Admission: No History of DVT/PE: No History of Uncontrolled Diabetes: Yes Urinary Catheter: No Decubitus Ulcer Present: No Review of Systems - Review of Systems All systems: reviewed and no additional remarkable complaints except - Respiratory Respiratory: As Per HPI - Gastrointestinal Gastrointestinal: Abdominal Pain, Diarrhea, Nausea, Vomiting Past Patient History - Infectious Disease Hx of Infectious Diseases: C.diff - Past Medical History & Family History Past Medical History?: Yes - Past Social History Smoking Status: Light Smoker < 10 Cigarettes Daily - CARDIAC Hx Congestive Heart Failure: No Hx Hypercholesterolemia: No Hx Hypertension: Yes - PULMONARY Hx Asthma: Yes Hx Chronic Obstructive Pulmonary Disease (COPD): No - NEUROLOGICAL Hx Neurological Disorder: Yes (Diabetic neuropathy) - ENDOCRINE/METABOLIC Hx Hyperthyroidism: Yes (pt is not sure what she has ) Hx Hypothyroidism: Yes - HEMATOLOGICAL/ONCOLOGICAL Hx Anemia: Yes Hx Human Immunodeficiency Virus (HIV): No - INTEGUMENTARY Hx Dermatological Problems: Yes Other/Comment: R very small dry scab hx of fall at home - MUSCULOSKELETAL/RHEUMATOLOGICAL Hx Arthritis: No Hx Fractures: Yes (rib (left)) Hx Rheumatoid Arthritis: No - GASTROINTESTINAL Hx Gastritis: Yes - GENITOURINARY/GYNECOLOGICAL Hx Genitourinary Disorders: No - PSYCHIATRIC Hx Anxiety: Yes Hx Depression: Yes - SURGICAL HISTORY Hx Appendectomy: Yes Hx Cholecystectomy: Yes Hx Coronary Stent: Yes Hx Tonsillectomy: Yes - ANESTHESIA Hx Anesthesia: Yes Hx Anesthesia Reactions: No Hx Malignant Hyperthermia: No Meds Allergies/Adverse Reactions: Allergies Allergy/AdvReac Type Severity Reaction Status Date / Time Penicillins Allergy RASH Verified 10/05/16 13:07 lipitor AdvReac Intermediate RASH Uncoded 10/05/16 23:59 Physical Exam - Constitutional Appears: Non-toxic, No Acute Distress - Head Exam Head Exam: ATRAUMATIC, NORMOCEPHALIC - Eye Exam Eye Exam: Normal appearance - ENT Exam ENT Exam: Mucous Membranes Moist - Neck Exam Neck exam: Positive for: Normal Inspection - Respiratory Exam Respiratory Exam: Clear to Auscultation Bilateral. absent: Rales, Rhonchi, Wheezes - Cardiovascular Exam Cardiovascular Exam: REGULAR RHYTHM, +S1, +S2 - GI/Abdominal Exam GI & Abdominal Exam: Normal Bowel Sounds, Soft, Tenderness (TD epigastrium). absent: Mass, Rebound - Extremities Exam Extremities exam: Positive for: normal inspection. Negative for: calf tenderness, pedal edema - Back Exam Back exam: CVA tenderness (R), NORMAL INSPECTION - Neurological Exam Neurological exam: Alert, Oriented x3 - Psychiatric Exam Psychiatric exam: Normal Affect, Normal Mood - Skin Skin Exam: Intact Results - Vital Signs Recent Vital Signs: Last Vital Signs Temp 97.5 F L 05/18/17 17:55 Pulse 93 H 05/18/17 17:55 Resp 17 05/18/17 17:55 BP 147/69 05/18/17 17:55 Pulse Ox 99 05/18/17 18:09 - Labs Result Diagrams: 05/18/17 14:00 05/18/17 14:00 Labs: Laboratory Results - last 24 hr 05/18/17 05/18/17 05/18/17 14:00 14:00 14:47 WBC 11.9 H D RBC 3.88 Hgb 12.3 D Hct 36.1 MCV 93.0 D MCH 31.7 H MCHC 34.1 RDW 13.2 Plt Count 349 MPV 9.6 Neut % (Auto) 80.8 H Lymph % (Auto) 10.8 L [place] % (Auto) 7.5 Eos % (Auto) 0.1 Baso % (Auto) 0.8 Neut # (Auto) 9.6 H Lymph # (Auto) 1.3 [place] # (Auto) 0.9 H Eos # (Auto) 0.0 Baso # (Auto) 0.1 pCO2 pO2 HCO3 ABG pH ABG Total CO2 ABG O2 Saturation ABG O2 Content ABG Base Excess ABG Hemoglobin ABG Carboxyhemoglobin POC ABG HHb (Measured) ABG Methemoglobin ABG O2 Capacity [place] Test A-a O2 Difference Hgb O2 Saturation FiO2 Sodium 135 Potassium 4.2 Chloride 90 L Carbon Dioxide 22 Anion Gap 27 H BUN 20 H Creatinine 0.7 Est GFR ( Amer) > 60 Est GFR (Non-Af Amer) > 60 POC Glucose (mg/dL) 482 H* Random Glucose 698 H* D Calcium 10.1 Total Bilirubin 0.7 AST 19 ALT 23 Alkaline Phosphatase 131 H Total Protein 7.5 Albumin 4.2 Globulin 3.3 Albumin/Globulin Ratio 1.3 Lipase 96 05/18/17 05/18/17 05/18/17 15:40 16:19 17:40 WBC RBC Hgb Hct MCV MCH MCHC RDW Plt Count MPV Neut % (Auto) Lymph % (Auto) [place] % (Auto) Eos % (Auto) Baso % (Auto) Neut # (Auto) Lymph # (Auto) [place] # (Auto) Eos # (Auto) Baso # (Auto) pCO2 29 L pO2 104 H HCO3 24.7 ABG pH 7.49 H ABG Total CO2 23.0 ABG O2 Saturation 99.8 H ABG O2 Content 16.8 ABG Base Excess -0.3 ABG Hemoglobin 12.4 ABG Carboxyhemoglobin 2.0 H POC ABG HHb (Measured) 0.2 ABG Methemoglobin 2.0 ABG O2 Capacity 16.8 [place] Test Yes A-a O2 Difference 9.0 Hgb O2 Saturation 95.8 FiO2 21.0 Sodium Potassium Chloride Carbon Dioxide Anion Gap BUN Creatinine Est GFR ( Amer) Est GFR (Non-Af Amer) POC Glucose (mg/dL) 425 H* 334 H Random Glucose Calcium Total Bilirubin AST ALT Alkaline Phosphatase Total Protein Albumin Globulin Albumin/Globulin Ratio Lipase Assessment & Plan - Assessment and Plan (Free Text) Plan: 56 yo, f, PMHx/o HTN, IDDM2, Hypothyroidism, 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 Colindres.) admited for uncontrolled DM and HHS Assessment/Plan 1) HHS -secondary to uncontrolled DM -ABG: PH: 7.49 CO2:29 Alk respiratory HcO3: 24.7 normal -Blood sugar 669 -s/p Insulin regular IV 10 units x 2 -NS 2 liters IV -telemetry -continue NS 250 ml/h - Accucheck q 2h -Last accucheck 334 after insulin -When BS: 250 will switch to D5 1/2 NS 200 ml/h to keep Bs 150-200 -Insulin sliding scale -f/u bmp 20:00 -f/u mg,phosp -pending urine result:unable to know if ketone body yet 2) Abdominal pain -secondary to HHS -s/p morphine 4 mg iv, dilaudid 2 mg -c/w dilaudid 0.5 sev pain -c/w morphine 2mg mod pain 3) DM uncontrolled -Hga 1c 10.2 10/2016 -patient unsure about insulin regimen -will bring list of meds his son -f/u [id number] -f/u lipid profile 4) HTN -Lisinopril 10 mg daily 5) Hypothyroidism -levothyroxin 50 mcg 6) Anxiety -hold psyq meds 7)chronic right sided hemicorporal pain of an unknown etiology -( daily regimen of Oxycontin as per Dr. Colindres.) 8) DVT Prophylaxis -Lovenox 40 mg sc
[2017-05-18] MEDS ORDERED: HYDROmorphone 0.5 mg/0.5 ml ISec ONE (21:01)
[2017-05-18] MEDS: Dextrose 5%/0.45% NS 1,000 ML IV SCH (21:35)
[2017-05-18 21:57] LABS: BARBITURATES, UR NEGATIVE (NEGATIVE); BENZODIAZEPINES, UR POSITIVE (NEGATIVE); OPIATES, UR POSITIVE (NEGATIVE); PHENCYCLIDINE, UR NEGATIVE (NEGATIVE)
[2017-05-18] MEDS ORDERED: ZOCOR 40 MG PO SCH (22:00)
[2017-05-18 22:11] LABS: SQUAMOUS EPITHIAL 3 /hpf (0-5); URINE BACTERIA RARE (<OCC); URINE BILIRUBIN NEGATIVE (NEGATIVE); URINE BLOOD NEGATIVE (NEGATIVE); URINE CLARITY SLIGHTY-CLOUDY (Clear); URINE COLOR YELLOW (YELLOW); URINE GLUCOSE (UA) >=500 mg/dL (Normal); URINE LEUKOCYTE ESTERASE TRACE Leu/uL (Negative); URINE PROTEIN 100 mg/dL (NEGATIVE); URINE UROBILINOGEN 0.2-1.0 mg/dL (0.2-1.0)
[2017-05-18 23:16] LABS: BLOOD UREA NITROGEN 18 mg/dl (7-17); CALCIUM 8.7 mg/dL (8.4-10.2); GFR AFRICAN-AMERICAN > 60; GFR NON-AFRICAN AMERICAN > 60
[2017-05-18] MEDS: Insulin Lispro (humaLOG) 100 Units/ml Inj SC SCH (23:59)
[2017-05-19] MEDS: Insulin Lispro (humaLOG) 100 Units/ml Inj SC SCH ×4 (06:41→21:35)
[2017-05-19] MEDS: Levothyroxine 50 MCG TAB PO SCH (06:45)
[2017-05-19] MEDS: Dextrose 5%/0.45% NS 1,000 ML IV SCH ×3 (08:31→22:44)
[2017-05-19 08:40] LABS: BASO # 0.1 K/uL (0.0-0.2); BASO % 0.5 % (0.0-2.0); EOS % 0.2 % (0.0-4.0); HEMOGLOBIN 10.6 g/dL (12.0-16.0); LYMPH # 3.1 K/uL (1.0-4.3); LYMPH % 24.2 % (20.0-40.0); MEAN CELL VOLUME 95.3 fl (81.0-99.0); MEAN CORPUSCULAR HEMOGLOBIN 31.6 pg (27.0-31.0); MEAN CORPUSCULAR HGB CONC 33.2 g/dL (33.0-37.0); MEAN PLATELET VOLUME 10.5 fl (7.2-11.7); MONO % 7.9 % (0.0-10.0); NEUT # 8.5 K/uL (1.8-7.0); NEUT % 67.2 % (50.0-75.0); NRBC % 0.1 % (0.0-0.0); RBC 3.35 Mil/uL (3.80-5.20); WHITE BLOOD COUNT 12.6 K/uL (4.8-10.8)
[2017-05-19 08:49] LABS: ALB/GLOB RATIO 1.2 (1.0-2.1); ALBUMIN 3.3 g/dL (3.5-5.0); ALT/SGPT 34 U/L (9-52); AST/SGOT 32 U/L (14-36); BLOOD UREA NITROGEN 16 mg/dl (7-17); CALCIUM 8.7 mg/dL (8.4-10.2); GFR AFRICAN-AMERICAN > 60; GFR NON-AFRICAN AMERICAN > 60; HDL CHOLESTEROL 35 MG/DL (30-70)
[2017-05-19 08:53] LABS: LDL CHOLESTEROL 54 mg/dL (0-129)
--- NOTE | 2017-05-19 09:11 | CARD ---
APPROVED REPORT EKG Measurement Heart [id number] <Conclusion> Sinus rhythm with short [place] with premature supraventricular complexes Nonspecific ST and T wave abnormality Abnormal ECG
[2017-05-19] MEDS ORDERED: Alum-Mag Hydrox-Simethicone Susp (30 mL) PO ONE (09:17)
[2017-05-19] MEDS ORDERED: Sterile Water 10 ML IV ONE (10:27)
[2017-05-19] MEDS: Enoxaparin 40 mg Syringe SC SCH (10:58)
[2017-05-19] MEDS ORDERED: DiphenhydrAMINE 50 mg/ml Inj IVP ONE (13:27)
--- NOTE | 2017-05-19 13:31 | CP.PCM.PN ---
Subjective - Date & Time of Evaluation Date of Evaluation: 05/19/17 Time of Evaluation: 09:25 - Subjective Subjective: Patient was seen and evaluated at bedside this morning, complained of persistent epigastric pain/nausea. While still at bedside, pt was given viscous lidocaine and maalox. On reassessment in about 2 hours, she stated some, but not complete relief. Denies chest pain and shortness of breath. Objective - Vital Signs/Intake and Output Vital Signs (last 24 hours): Temp Pulse Resp BP Pulse Ox 98.0 F 56 L 18 152/54 H 100 05/19/17 11:45 05/19/17 11:45 05/19/17 11:45 05/19/17 11:45 05/19/17 11:45 - Medications Medications: Current Medications Alprazolam (Xanax) 0.5 mg PO ONCE ONE Stop: 05/19/17 13:26 Dextrose (Dextrose 50% Inj) 0 ml IV STAT PRN; Protocol PRN Reason: Hypoglycemia Protocol Dextrose (Glutose 15) 0 gm PO ONCE PRN; Protocol PRN Reason: Hypoglycemia Protocol Diphenhydramine HCl (Benadryl) 50 mg IVP ONCE ONE Stop: 05/19/17 13:28 Enoxaparin Sodium (Lovenox) 40 mg SC DAILY [facility] PRN Reason: Protocol Last Admin: 05/19/17 10:58 Dose: Not Given Glucagon (Glucagen Diagnostic Kit) 0 mg IM STAT PRN; Protocol PRN Reason: Hypoglycemia Protocol Home Med (Patient's Own Medication) 1 unit PO HS [facility] Dextrose/Sodium Chloride (Dextrose 5%/0.45% Ns 1000 Ml) 1,000 mls @ 100 mls/hr IV .Q10H [facility] Stop: 05/19/17 21:15 Last Admin: 05/19/17 08:31 Dose: 100 mls/hr Insulin Human Lispro (Humalog) 0 units SC ACHS [facility] PRN Reason: Protocol Last Admin: 05/19/17 12:52 Dose: 4 units Levothyroxine Sodium (Synthroid) 50 mcg PO DAILY@0630 [facility] Last Admin: 05/19/17 06:45 Dose: Not Given Lisinopril (Zestril) 10 mg PO DAILY [facility] Last Admin: 05/19/17 10:58 Dose: Not Given Metformin HCl (Glucophage) 1,000 mg PO BIDWM [facility] Ondansetron HCl (Zofran Inj) 4 mg IVP Q6 [facility] Last Admin: 05/19/17 12:52 Dose: 4 mg Sucralfate (Carafate Oral Susp) 1 gm PO QID [facility] - Labs Labs: 05/19/17 06:01 05/19/17 06:01 - Constitutional Appears: Non-toxic, Agitated - Head Exam Head Exam: NORMAL INSPECTION - Eye Exam Eye Exam: Normal appearance - ENT Exam ENT Exam: Mucous Membranes Moist - Respiratory Exam Respiratory Exam: Clear to Ausculation Bilateral, NORMAL BREATHING PATTERN - Cardiovascular Exam Cardiovascular Exam: REGULAR RHYTHM, +S1, +S2 - GI/Abdominal Exam GI & Abdominal Exam: Soft, Tenderness (epigastric), Normal Bowel Sounds - Extremities Exam Extremities Exam: Normal Inspection. absent: Pedal Edema - Neurological Exam Neurological Exam: Alert, Awake - Skin Skin Exam: Dry, Intact, Normal Color Assessment and Plan - Assessment and Plan (Free Text) Assessment: 56 yo F with hx HTN, DM2, anxiety who presented with abdominal pain in a hyperosmolar hyperglycemic state; HHS now resolved. Continues to have epigastric pain likely from gastritis. Plan: # Abdominal pain Secondary to gastritis vs HSS. Received viscous lidocaine and maalox with some relief. - Sucralfate 1gm QID - Reassess for PO tolerance # HHS Secondary to uncontrolled DM; presented with blood sugar 669, 20 ketones in urine. Received insulin 20U IV insulin, 2L NS. Anion gap 25 on presentation, now closed at 20. - Continue D5 1/2 NS 200 ml/h - Accuchecks - Insulin coverage scale and hypoglycemia protocol # Diabetes Mellitus - Last known A1c 10/2016 was 10.2 - Repeat pending - Start metformin 1,000 mg BIDWM # HTN - Lisinopril 10 mg daily - Monitor # Hypothyroidism - Levothyroxine 50 mcg - TSH pending # Anxiety - Alprazolam 0.5 mg - Pt to bring home meds/prescriptions as unable to verify with pt's pharmacy today # Chronic right sided hemicorporal pain of an unknown etiology Daily regimen of Oxycontin prescribed by Dr. Colindres, as per pt - Pt to bring home meds/prescriptions as unable to verify with pt's pharmacy today # DVT Prophylaxis -Lovenox 40 mg sc
[2017-05-19] MEDS: Sucralfate 1 gm/10 ml Oral Susp UD PO SCH ×3 (14:33→21:25)
--- NOTE | 2017-05-19 17:17 | CP.PCM.PCO ---
Subjective - Physician Review Subjective (Free Text): re-evalauted patient, no nausea or vomiting. Pt reports feeling very thirsty. Will advance to full liquids. Confirmed home medications. Will transfer to med/ surg.
[2017-05-20] MEDS ORDERED: DiphenhydrAMINE 50 mg/ml Inj IVP STA (01:27)
[2017-05-20] MEDS: Levothyroxine 50 MCG TAB PO SCH (07:14)
[2017-05-20] MEDS: Insulin Lispro (humaLOG) 100 Units/ml Inj SC SCH ×4 (07:17→23:42)
[2017-05-20 08:08] LABS: HEMOGLOBIN 11.9 g/dL (12.0-16.0); MEAN CELL VOLUME 95.6 fl (81.0-99.0); MEAN CORPUSCULAR HEMOGLOBIN 31.5 pg (27.0-31.0); RBC 3.76 Mil/uL (3.80-5.20); WHITE BLOOD COUNT 14.5 K/uL (4.8-10.8)
[2017-05-20] MEDS: Enoxaparin 40 mg Syringe SC SCH (08:47)
[2017-05-20] MEDS: Sucralfate 1 gm/10 ml Oral Susp UD PO SCH ×4 (08:47→23:55)
--- NOTE | 2017-05-20 11:27 | CP.PCM.PN ---
Subjective - Date & Time of Evaluation Date of Evaluation: 05/20/17 Time of Evaluation: 12:30 - Subjective Subjective: Pt seen and evaluated today at bedside. Overnight had pain that resolved with toradol. Pt laying in bed quietly but upon entering room started making sounds that indicate pain (moan/groan). Pt complains that she is vomiting- scant amounts of saliva mixed with some yellowish fluid are noted in garbage can next to pt's bed, as per pt's nurse she has not vomitted but is spitting saliva. No blood in vomit. Pt denies chest pain and shortness of breath. Objective - Vital Signs/Intake and Output Vital Signs (last 24 hours): Temp Pulse Resp BP Pulse Ox 97.1 F L 75 20 163/84 H 95 05/20/17 07:53 05/20/17 08:48 05/20/17 07:53 05/20/17 08:48 05/20/17 07:53 - Medications Medications: Current Medications Alprazolam (Xanax) 0.5 mg PO DAILY [facility] Last Admin: 05/20/17 08:55 Dose: 0.5 mg Dextrose (Dextrose 50% Inj) 0 ml IV STAT PRN; Protocol PRN Reason: Hypoglycemia Protocol Dextrose (Glutose 15) 0 gm PO ONCE PRN; Protocol PRN Reason: Hypoglycemia Protocol Enoxaparin Sodium (Lovenox) 40 mg SC DAILY [facility] PRN Reason: Protocol Last Admin: 05/20/17 08:47 Dose: 40 mg Glucagon (Glucagen Diagnostic Kit) 0 mg IM STAT PRN; Protocol PRN Reason: Hypoglycemia Protocol Home Med (Patient's Own Medication) 1 unit PO HS [facility] Insulin Detemir (Levemir) 8 units SC HS [facility] Insulin Human Lispro (Humalog) 0 units SC ACHS [facility] PRN Reason: Protocol Last Admin: 05/20/17 07:17 Dose: 4 units Levothyroxine Sodium (Synthroid) 50 mcg PO DAILY@0630 [facility] Last Admin: 05/20/17 07:14 Dose: 50 mcg Lisinopril (Zestril) 10 mg PO DAILY [facility] Last Admin: 05/20/17 08:48 Dose: 10 mg Metformin HCl (Glucophage) 1,000 mg PO BIDWM [facility] Last Admin: 05/20/17 08:47 Dose: 1,000 mg Ondansetron HCl (Zofran Inj) 4 mg IVP Q6 [facility] Last Admin: 05/20/17 09:01 Dose: 4 mg Oxycodone HCl (Oxycodone Immediate Release Tab) 10 mg PO Q6 [facility] Quetiapine Fumarate (Seroquel) 12.5 mg PO HS [facility] Last Admin: 05/19/17 21:30 Dose: 12.5 mg Sucralfate (Carafate Oral Susp) 1 gm PO QID [facility] Last Admin: 05/20/17 08:47 Dose: 1 gm - Labs Labs: 05/20/17 06:40 05/19/17 06:01 - Constitutional Appears: Agitated - Head Exam Head Exam: NORMAL INSPECTION - Eye Exam Eye Exam: Normal appearance - ENT Exam ENT Exam: Mucous Membranes Moist - Respiratory Exam Respiratory Exam: Clear to Ausculation Bilateral, NORMAL BREATHING PATTERN. absent: Respiratory Distress - Cardiovascular Exam Cardiovascular Exam: REGULAR RHYTHM, +S1, +S2 - GI/Abdominal Exam GI & Abdominal Exam: Soft, Tenderness (epigastric), Normal Bowel Sounds - Extremities Exam Extremities Exam: Normal Capillary Refill, Normal Inspection. absent: Calf Tenderness, Pedal Edema - Neurological Exam Neurological Exam: Alert, Awake - Psychiatric Exam Psychiatric exam: Agitated, Anxious - Skin Skin Exam: Dry, Intact, Normal Color, Warm Assessment and Plan - Assessment and Plan (Free Text) Assessment: 56 yo F with hx HTN, DM2, anxiety who presented with abdominal pain in a hyperosmolar hyperglycemic state; HHS now resolved. Continues to have epigastric pain likely from gastritis. Plan: # Abdominal pain secondary to gastritis - Sucralfate 1gm QID - Protonix 40 mg IVP daily - Pain control, home meds - PO trial as tolerated - NS @ 125 ml/hr since pt is not eating - Lipase wnl, pt has hx cholecystectomy and appendectomy # UTI - Leuk esterate on UA - Urine culture - Empiric antibiotics - ciprofloxacin 200mg IV Q12 # Diabetes Mellitus - Levemir 8U QHS - Last known A1c 10/2016 was 10.2; this admission 13.1 - Hold metformin 1,000 mg BIDWM due to pt's abdominal discomfort - Accuchecks - Hypoglycemia protocol/hyperglycemia coverage scale - Endocrine consult- Dr. Ruth # HHS Secondary to uncontrolled DM; presented with blood sugar 669, 20 ketones in urine. Received insulin 20U IV insulin, 2L NS. Anion gap 25 on presentation, now closed at 20. # HTN - Lisinopril 10 mg daily - Monitor # Hypothyroidism - TSH low; hold levothyroxine # Anxiety - Alprazolam 0.5 mg daily # Chronic right sided hemicorporal pain of an unknown etiology Daily regimen of Oxycontin prescribed by Dr. Colindres, as per pt # DVT Prophylaxis -Lovenox 40 mg sc
[2017-05-20] MEDS: oxyCODONE 10 mg Immediate Release Tab PO SCH ×3 (12:22→23:55)
[2017-05-20] MEDS ORDERED: Sodium Chloride 0.9% 1,000 ML IV SCH (15:00)
[2017-05-20 15:16] LABS: BLOOD UREA NITROGEN 9 mg/dl (7-17); CALCIUM 8.9 mg/dL (8.4-10.2); GFR AFRICAN-AMERICAN > 60; GFR NON-AFRICAN AMERICAN > 60
[2017-05-20] MEDS ORDERED: Insulin Lispro (humaLOG) 100 Units/ml Inj SC SCH (16:30)
[2017-05-20] MEDS ORDERED: Diphenhydramine 1% CREAM TOP PRN (18:53)
[2017-05-20] MEDS ORDERED: Potassium Chloride 20 mEq 100 ML IVPB SCH ×2 (19:00)
[2017-05-20] MEDS: Potassium Chloride 20 mEq 100 ML IVPB SCH ×2 (20:03→23:53)
[2017-05-20] MEDS ORDERED: Insulin Detemir 100 Units/ml Inj SC SCH ×2 (22:00)
[2017-05-20] MEDS: Ciprofloxacin 200mg/100ml D5W 100 ML IVPB SCH (22:31)
[2017-05-20] MEDS ORDERED: Insulin Detemir 100 Units/ml Inj SC STA (23:18)
--- NOTE | 2017-05-20 23:44 | CON ---
ENDOCRINOLOGY CONSULT DATE: LOCATION: In room 660 HISTORY OF PRESENT ILLNESS: This is a 56-year-old female with known history of type 1 insulin-dependent diabetes presenting here with generalized body weakness and supervening nausea, dyspepsia, and vomiting and was evaluated to be in hyperosmolar hyperglycemic state and dehydration and is now being referred for diabetic evaluation and management. PAST MEDICAL HISTORY: This patient is actually known to me from prior hospital and clinic consultations, but was last seen over 2 years ago in the hospital. She has been on a variable dosing of a combination of Lantus given 20 to 25 units at bedtime with Humalog given again at a variable dose of 3 to 4 units t.i.d. depending on her oral intake. Her A1c levels however have always been out of control and as reviewed from the old records have ranged from 10 to 14% over the last 10 years or so. History of hypertensive cardiovascular disease and dyslipidemia, history of diabetic retinopathy and painful polyneuropathy, history of coronary artery disease with previous coronary stent placement and also underlying peripheral arterial disease and vasculopathy. 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 History of hypothyroidism and has been on levothyroxine at 50 mcg once daily and history of diffuse osteoarthritis. FAMILY HISTORY: Positive for hypertension and diabetes. SOCIAL HISTORY: The patient admits to nicotine dependence. No other known substance use. REVIEW OF SYSTEMS: As mentioned above, admits to generalized body weakness with episodic dizziness and lightheadedness, worse in the last 2 to 3 days prior to admission. Also admits to visual blurring and bifrontal headaches and also episodic insomnia. No chest pains or palpitations, but admits to progressive shortness of breath especially on exertion. Her oral intake has been variable with nausea and dyspepsia and intractable vomiting episodes prior to this admission. Also admits to episodic loose watery diarrhea with a prior history of C. difficile colitis. Also admits to marked polyuria, nocturia, and polydipsia, and about a 5-pound or so weight loss. PHYSICAL EXAMINATION: GENERAL: This is female in no apparent distress. VITAL SIGNS: Blood pressure of 140/80, pulse of 70 beats minute and regular, temperature 98, respirations 20, height is 4 feet 11 inches, and weight is 98 pounds. HEENT: Head is normocephalic. Eyes are anicteric with pink conjunctivae. Funduscopy not possible at this time. Ears, nose, and throat otherwise normal. NECK: Supple. Thyroid gland is normal in size. No carotid bruits or cervical adenopathy. CARDIOPULMONARY: Some adynamic precordium. S1 and S2 is rapid and regular. LUNGS: Clear to auscultation. ABDOMEN: Flat and soft with positive bowel sounds. EXTREMITIES: No peripheral edema. Pulses are +2 bilaterally. LABORATORY DATA: Her chemistry showed the initial glucose was 698 mg/dL and her hemoglobin A1c is 13.1%, which is extremely elevated and indicative of suboptimal metabolic control of her diabetic condition even prior to this admission. Her thyroid studies showed a TSH of 0.42, which is suppressed. The latest chemistry showed a BUN of 9, sodium 137, potassium 3.2, chloride 100, CO2 of 28, glucose 328, and creatinine 0.6. ASSESSMENT AND PLAN: This is a 56-year-old female with uncontrolled and decompensated type 1 insulin-dependent diabetes presenting here with marked hyperglycemic accelerations and concomitant hyperosmolar hyperglycemic state and dehydration and is now being referred for diabetic evaluation and management. She also has diabetic microvascular complications of retinopathy and painful polyneuropathy with diabetic macrovascular complications of coronary artery disease and peripheral arterial disease and vasculopathy. Plan of management as discussed with the patient and staff. We will start her right away on a soft, consistent carb and heart-healthy diet starting at dinnertime today as ordered. We will also start her on a more physiologic basal and bolus insulin drug combination with Humalog given as 6 units subcutaneously t.i.d. before meals to start tonight as ordered. We will increase the Levemir to 14 units subcutaneously at bedtime daily to start tonight. We will titrate incremental as indicated to optimize metabolic control. We will also modify the coverage scale to obviate hypoglycemia and detailed orders have been given. We will repeat thyroid studies, but in the meantime, lower the levothyroxine to 25 mcg once daily before breakfast as ordered. We will obtain serial chemistries and supplement accordingly as needed. 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 We will follow and advise accordingly. Audra Ruth MD
[2017-05-21] MEDS: oxyCODONE 10 mg Immediate Release Tab PO SCH ×2 (03:04→09:01)
[2017-05-21 06:59] LABS: ALB/GLOB RATIO 1.1 (1.0-2.1); ALBUMIN 3.5 g/dL (3.5-5.0); ALT/SGPT 25 U/L (9-52); AST/SGOT 21 U/L (14-36); BLOOD UREA NITROGEN 9 mg/dl (7-17); CALCIUM 8.8 mg/dL (8.4-10.2); GFR AFRICAN-AMERICAN > 60; GFR NON-AFRICAN AMERICAN > 60
[2017-05-21 07:07] LABS: T4 6.92 ug/dl (5.5-11.0)
[2017-05-21 07:46] VITALS: BP 107/63; PULSE 63; O2SAT 98
--- NOTE | 2017-05-21 08:30 | CP.PCM.DIS ---
Provider - Provider Date of Admission: 05/19/17 13:16 Attending physician: Claudia Baker MD Primary care physician: Dr. Fraire Consults: Endocrinology Time Spent in preparation of Discharge (in minutes): 35 Diagnosis - Discharge Diagnosis (1) Uncontrolled diabetes mellitus Status: Chronic Comment: Presented in HHS; now resolved. Seen by reporting developer Dr. Ruth who advised insulin regimen. Pt sees reporting developer Dr. Ruth outpatient, and will continue to do so. (2) Gastritis Status: Chronic Comment: Pt's abdominal pain alleviated with protonix and sucralfate. Advised against foods that irritate stomach lining, such as spicy/citrusy foods. Advised against taking NSAIDs. (3) Anxiety Status: Chronic Comment: Chronic; pt has extensive psychiatric history and sees outpatient psychiatrist Dr. Soto at [facility]. Continue with current med regimen and follow up with outpatient psychiatry. (4) Chronic pain Status: Chronic Comment: Pt sees outpatient pain management, Dr. Colindres. Continue current regimen as per pain management, and follow up outpatient. Hospital Course - Lab Results Lab Results: Most Recent Lab Values WBC 14.5 K/uL (4.8-10.8) H 05/20/17 06:40 RBC 3.76 Mil/uL (3.80-5.20) L 05/20/17 06:40 Hgb 11.9 g/dL (12.0-16.0) L 05/20/17 06:40 Hct 36.0 % (34.0-47.0) 05/20/17 06:40 MCV 95.6 fl (81.0-99.0) 05/20/17 06:40 MCH 31.5 pg (27.0-31.0) H 05/20/17 06:40 MCHC 33.0 g/dL (33.0-37.0) 05/20/17 06:40 RDW 13.0 % (11.5-14.5) 05/20/17 06:40 Plt Count 234 K/uL (130-400) 05/20/17 06:40 MPV 10.5 fl (7.2-11.7) 05/19/17 06:01 Neut % (Auto) 67.2 % (50.0-75.0) 05/19/17 06:01 Lymph % (Auto) 24.2 % (20.0-40.0) 05/19/17 06:01 [place] % (Auto) 7.9 % (0.0-10.0) 05/19/17 06:01 Eos % (Auto) 0.2 % (0.0-4.0) 05/19/17 06:01 Baso % (Auto) 0.5 % (0.0-2.0) 05/19/17 06:01 Neut # (Auto) 8.5 K/uL (1.8-7.0) H 05/19/17 06:01 Lymph # (Auto) 3.1 K/uL (1.0-4.3) 05/19/17 06:01 [place] # (Auto) 1.0 K/uL (0.0-0.8) H 05/19/17 06:01 Eos # (Auto) 0.0 K/uL (0.0-0.7) 05/19/17 06:01 Baso # (Auto) 0.1 K/uL (0.0-0.2) 05/19/17 06:01 pCO2 29 mm/Hg (35-45) L 05/18/17 15:40 pO2 104 mm/Hg (80-100) H 05/18/17 15:40 HCO3 24.7 mmol/L (21-28) 05/18/17 15:40 ABG pH 7.49 (7.35-7.45) H 05/18/17 15:40 ABG Total CO2 23.0 mmol/L (22-28) 05/18/17 15:40 ABG O2 Saturation 99.8 % (95-98) H 05/18/17 15:40 ABG O2 Content 16.8 ML/dL (15-23) 05/18/17 15:40 ABG Base Excess -0.3 mmol/L (-2.0-3.0) 05/18/17 15:40 ABG Hemoglobin 12.4 g/dL (11.7-17.4) 05/18/17 15:40 ABG Carboxyhemoglobin 2.0 % (0.5-1.5) H 05/18/17 15:40 POC ABG HHb (Measured) 0.2 % (0.0-5.0) 05/18/17 15:40 ABG Methemoglobin 2.0 % (0.0-3.0) 05/18/17 15:40 ABG O2 Capacity 16.8 mL/dL (16-24) 05/18/17 15:40 [place] Test Yes 05/18/17 15:40 A-a O2 Difference 9.0 mm/Hg 05/18/17 15:40 Hgb O2 Saturation 95.8 % (95.0-98.0) 05/18/17 15:40 FiO2 21.0 % 05/18/17 15:40 Sodium 137 mmol/l (132-148) 05/21/17 06:05 Potassium 3.9 MMOL/L (3.6-5.0) 05/21/17 06:05 Chloride 100 mmol/L (98-107) 05/21/17 06:05 Carbon Dioxide 26 mmol/L (22-30) 05/21/17 06:05 Anion Gap 15 (10-20) 05/21/17 06:05 BUN 9 mg/dl (7-17) 05/21/17 06:05 Creatinine 0.6 mg/dl (0.7-1.2) L 05/21/17 06:05 Est GFR ( Amer) > 60 05/21/17 06:05 Est GFR (Non-Af Amer) > 60 05/21/17 06:05 POC Glucose (mg/dL) 160 mg/dL (65-110) H 05/21/17 05:44 Random Glucose 163 mg/dL (65-105) H 05/21/17 06:05 Hemoglobin A1c 13.1 % (4.2-6.5) H D 05/19/17 07:22 Serum Osmolality 306 mosm/kg (272-300) H 05/18/17 22:42 Lactic Acid 1.2 MMOL/L (0.7-2.1) 05/19/17 06:01 Calcium 8.8 mg/dL (8.4-10.2) 05/21/17 06:05 Phosphorus 3.3 mg/dl (2.5-4.5) 05/18/17 22:42 Magnesium 2.4 MG/DL (1.6-2.3) H 05/18/17 22:42 Total Bilirubin 0.3 mg/dl (0.2-1.3) 05/21/17 06:05 AST 21 U/L (14-36) 05/21/17 06:05 ALT 25 U/L (9-52) 05/21/17 06:05 Alkaline Phosphatase 105 U/L (38-126) 05/21/17 06:05 Total Protein 6.6 G/DL (6.3-8.2) 05/21/17 06:05 Albumin 3.5 g/dL (3.5-5.0) 05/21/17 06:05 Globulin 3.1 gm/dL (2.2-3.9) 05/21/17 06:05 Albumin/Globulin Ratio 1.1 (1.0-2.1) 05/21/17 06:05 Triglycerides 107 mg/DL (0-149) 05/19/17 06:01 Cholesterol 114 mg/dL (0-199) 05/19/17 06:01 LDL Cholesterol Direct 54 mg/dL (0-129) 05/19/17 06:01 HDL Cholesterol 35 MG/DL (30-70) 05/19/17 06:01 Lipase 96 U/L (23-300) 05/18/17 14:00 Free T4 1.41 ng/dL (0.78-2.19) 05/21/17 06:05 Thyroxine (T4) 6.92 ug/dl (5.5-11.0) 05/21/17 06:05 TSH 3rd Generation 1.37 mIU/ML (0.46-4.68) 05/21/17 06:05 Urine Color Yellow (YELLOW) 05/18/17 21: Urine Clarity Slighty-cloudy (Clear) 05/18/17 21: Urine pH 6.0 (5.0-8.0) 05/18/17 21: Ur Specific [place] 1.028 (1.003-1.030) 05/18/17 21: Urine Protein 100 mg/dL (NEGATIVE) 05/18/17 21: Urine Glucose (UA) >=500 mg/dL (Normal) 05/18/17 21: Urine Ketones 20 mg/dL (NEGATIVE) 05/18/17 21:22 Urine Blood Negative (NEGATIVE) 05/18/17 21: Urine Nitrate Negative (NEGATIVE) 05/18/17 21: Urine Bilirubin Negative (NEGATIVE) 05/18/17 21:22 Urine Urobilinogen 0.2-1.0 mg/dL (0.2-1.0) 05/18/17 21:22 Ur Leukocyte Esterase Trace [place]/uL (Negative) 05/18/17 21:22 Urine RBC (Auto) 4 /hpf (0-3) H 05/18/17 21:22 Urine Microscopic WBC 2 /hpf (0-5) 05/18/17 21:22 Ur Squamous Epith Cells 3 /hpf (0-5) 05/18/17 21:22 Urine Bacteria Rare (<OCC) 05/18/17 21:22 Urine Opiates Screen Positive (NEGATIVE) H 05/18/17 21:22 Urine Methadone Screen Negative (NEGATIVE) 05/18/17 21:22 Ur Barbiturates Screen Negative (NEGATIVE) 05/18/17 21:22 Ur Phencyclidine Scrn Negative (NEGATIVE) 05/18/17 21:22 Ur Amphetamines Screen Negative (NEGATIVE) 05/18/17 21:22 U Benzodiazepines Scrn Positive (NEGATIVE) 05/18/17 21:22 U Oth Cocaine Metabols Negative (NEGATIVE) 05/18/17 21:22 U Cannabinoids Screen Positive (NEGATIVE) H 05/18/17 21:22 - Hospital Course Hospital Course: Pt with uncontrolled diabetes mellitus, chronic pain and significant psychiatric history admitted with [facility]; now resolved with insulin and hydration. She was seen by reporting developer Dr. Ruth who advised new insulin regimen. Pt sees reporting developer Dr. Ruth outpatient, and will continue to do so. Pt also complained of symptoms indicative of gastritis, was treated with protonix, sulfacrate, zofran. She was found to have UTI- urine sent for culture and emperic antibiotics started/prescribed. Her TSH was found to be low, so dose of synthroid was changed from 50mcg daily to 25 mcg daily. Pt should continue to see pain management and psychiatry as she has been. Her pain management and psychiatric medications were not changed at discharge. She has a follow up appointment with her PMD on 05/24. Discharge Exam - Head Exam Head Exam: NORMAL INSPECTION - Eye Exam Eye Exam: EOMI, Normal appearance - ENT Exam ENT Exam: Mucous Membranes Moist - Respiratory Exam Respiratory Exam: Clear to PA & Lateral, NORMAL BREATHING PATTERN, UNREMARKABLE - Cardiovascular Exam Cardiovascular Exam: REGULAR RHYTHM, +S1, +S2 - GI/Abdominal Exam GI & Abdominal Exam: Normal Bowel Sounds, Soft - Extremities Exam Extremities exam: normal inspection - Back Exam Back exam: NORMAL INSPECTION - Neurological Exam Neurological exam: Alert, Oriented x3 - Psychiatric Exam Psychiatric exam: Normal Affect Additional comments: less anxious today, calmer - Skin Skin Exam: Dry, Intact, Normal Color, Warm Discharge Plan - Discharge Medications Prescriptions: Levothyroxine [Synthroid] 25 mcg PO DAILY #30 tab Nitrofurantoin Macrocrystals [Macrobid] 100 mg PO Q12 5 Days #10 cap Ondansetron [Zofran] 4 mg PO Q8 PRN #10 tab PRN Reason: Nausea/Vomiting Pantoprazole Sodium [Protonix] 20 mg PO DAILY #30 ect - Follow Up Plan Condition: STABLE Disposition: HOME/ ROUTINE Patient education suggested?: Yes Instructions: Diabetes Type 1, Adult (DC), Hyperglycemia, Adult (DC), Gastritis (DC) Additional Instructions: Please take antibiotic Macrobid for 5 days, one tablet twice a day. Please take protonix as prescribed. Insulin: Levemir 12 Units in the evening before bed Humalog 4 U before breakfast, 4 units before lunch, 4 units before dinner Please make an appointment to see reporting developer Dr. Ruth within the next week. Please make an appointment to see your psychiatrist Dr. Soto this week/next week. Please make an appointment to see Dr. Colindres for pain management this week/next week. Please follow up at scheduled appt with Dr. Fraire at [facility] on Wednesday 05/24 at 3:20 pm. Referrals: [facility] [Provider Group] - 05/24/17 3:20 pm (You have follow up appointment with Dr. Fraire as scheduled. Please arrive at 3 pm. ) Audra Ruth MD [Medical Doctor] -
[2017-05-21] MEDS: Insulin Lispro (humaLOG) 100 Units/ml Inj SC SCH ×4 (08:42→12:11)
[2017-05-21] MEDS: Sucralfate 1 gm/10 ml Oral Susp UD PO SCH ×2 (08:55→12:11)
[2017-05-21] MEDS: Enoxaparin 40 mg Syringe SC SCH (08:57)
[2017-05-21 09:43] LABS: MEAN CELL VOLUME 91.6 fl (81.0-99.0); MEAN CORPUSCULAR HEMOGLOBIN 31.8 pg (27.0-31.0); MEAN CORPUSCULAR HGB CONC 34.8 g/dL (33.0-37.0); RBC 3.15 Mil/uL (3.80-5.20); RED CELL DISTRIBUTION WIDTH 12.6 % (11.5-14.5); WHITE BLOOD COUNT 9.9 K/uL (4.8-10.8)
[2017-05-21] MEDS: Ciprofloxacin 200mg/100ml D5W 100 ML IVPB SCH (11:27)
[2017-05-21 17:47] VITALS: RESP 18; TEMP 98.2
[2017-05-21] MEDS ORDERED: Insulin Detemir 100 Units/ml Inj SC SCH (22:00)
--- NOTE | 2017-05-22 00:14 | PN ---
ENDOCRINOLOGY FOLLOWUP NOTE DATE: LOCATION: In room 660 SUBJECTIVE: This is a 56-year-old female with recent uncontrolled type 1 insulin-dependent diabetes presenting here with marked hyperglycemic accelerations and concomitant diffuse abdominal pain and lower back pain and is now being followed closely for metabolic management. Her glycemic levels are fluctuating, but much improved at this time and the latest glucose levels have ranged from 102 to 160 mg/dL. Her latest chemistry showed a BUN of 9, sodium 137, potassium 3.9, chloride 100, CO2 of 26, glucose 163, and creatinine 0.6. ASSESSMENT AND PLAN: This is a 56-year-old female with uncontrolled type 1 insulin-dependent diabetes with extremes of glycemic fluctuations also related to the variability of her oral intake as noted thereof. 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 She also has diabetic microvascular complications of retinopathy and painful polyneuropathy with diabetic macrovascular complications of coronary artery disease with previous coronary stent placements and also peripheral arterial disease and vasculopathy. Plan of management as discussed with the patient and her son at bedside, the imperative need to optimize her metabolic control overemphasized especially in the light of extremely elevated A1c levels persistently over 12 to 15% as noted. We will modify her basal and bolus insulin regimen and increase the Humalog to 6 units subcutaneously t.i.d. before meals and Levemir, which will be actually given as Lantus as an outpatient to 20 units subcutaneously at bedtime daily as given. She was advised to call my office for glucose levels either below 90 or above 300 for insulin dose adjustments accordingly. We will follow. Audra Ruth MD
[2017-05-22] MEDS ORDERED: Levothyroxine 25 MCG TAB PO SCH (06:30)
== END 2017-05-21 15:20 | disposition home or self-care (01) | DRG 638 ==
LOC: H.ER 13:39 → H.ERHOLD 16:38 → H.TEL 05-19 03:03 → OBSVTOIN 05-19 13:16 → H.MEDSURG1 05-19 18:49
PROVIDERS: ADMIT Family Medicine Geriatric Medicine; ATTEND Family Medicine Geriatric Medicine
DX: E10.69 Type 1 diabetes mellitus with other specified complication (principal); E87.0 Hyperosmolality and hypernatremia; E10.42 Type 1 diabetes mellitus with diabetic polyneuropathy; E10.51 Type 1 diabetes mellitus with diabetic peripheral angiopathy without gangrene; N39.0 Urinary tract infection, site not specified; E10.65 Type 1 diabetes mellitus with hyperglycemia; E10.649 Type 1 diabetes mellitus with hypoglycemia without coma; I11.9 Hypertensive heart disease without heart failure; E78.5 Hyperlipidemia, unspecified; F17.200 Nicotine dependence, unspecified, uncomplicated; F41.1 Generalized anxiety disorder; G89.4 Chronic pain syndrome; I25.10 Atherosclerotic heart disease of native coronary artery without angina pectoris; J45.909 Unspecified asthma, uncomplicated; Z79.4 Long term (current) use of insulin; Z79.899 Other long term (current) drug therapy; Z90.49 Acquired absence of other specified parts of digestive tract; Z95.5 Presence of coronary angioplasty implant and graft; E05.90 Thyrotoxicosis, unspecified without thyrotoxic crisis or storm; F32.9 Major depressive disorder, single episode, unspecified; M19.90 Unspecified osteoarthritis, unspecified site; Z91.81 History of falling; M54.5 Low back pain; D64.9 Anemia, unspecified; E03.9 Hypothyroidism, unspecified; E10.319 Type 1 diabetes mellitus with unspecified diabetic retinopathy without macular edema; K29.50 Unspecified chronic gastritis without bleeding; E86.0 Dehydration

== ENCOUNTER 2017-08-30 13:58 | Observation (INO) | payer MEDICARE, MEDICAID ==
[2017-08-30 13:58] VITALS: BMI 22.0
[2017-08-30] MEDS ORDERED: Iohexol 240 (50 ml) PO ONE (14:17)
[2017-08-30] MEDS ORDERED: Sodium Chloride 0.9% 1,000 ML IV STA ×2 (14:17→15:55)
[2017-08-30] MEDS ORDERED: Famotidine 20mg/50ml 20 MG/50 ML BAG IVPB STA (14:17)
--- NOTE | 2017-08-30 14:26 | ED PDOC ---
HPI: Abdomen Time Seen by Provider: 08/30/17 14:08 Chief Complaint (Nursing): Abdominal Pain Chief Complaint (Provider): Abd pain History Per: Patient History/Exam Limitations: no limitations Onset/Duration Of Symptoms: Days (today) Current Symptoms Are (Timing): Still Present Additional Complaint(s): Pt. with pain all over and feels like her colitis. [place], vomit, diarrhea all nonbloody. No weakness, headaches, dizziness. No chest pain, dyspnea. No fever. No dysuria. No new food or drinks. Past Medical History Reviewed: Nursing Documentation, Vital Signs Vital Signs: Last Vital Signs Temp 97.7 F 08/30/17 14:04 Pulse 88 08/30/17 14:04 Resp 20 08/30/17 14:04 BP 146/107 H 08/30/17 14:04 Pulse Ox 98 08/30/17 14:36 - Medical History PMH: Anemia, Anxiety, Asthma, CAD, Depression, Diabetes, Fractures (rib (left)) , Gastritis, HTN, Hyperthyroidism (pt is not sure what she has ), Hypothyroidism Denies: Arthritis, CHF, COPD, HIV, Hypercholesterolemia, Rheumatoid Arthritis - Surgical History Surgical History: Appendectomy, Cholecystectomy, Coronary Stent, Endoscopy, Tonsillectomy - Family History Family History: States: Unknown Family Hx - Living Arrangements Living Arrangements: With Family - Social History Alcohol: None Drugs: Denies - Immunization History Hx Tetanus Toxoid Vaccination: No Hx Influenza Vaccination: Yes Hx Pneumococcal Vaccination: Yes - Home Medications Home Medications: Ambulatory Orders Medication Instructions Recorded Albuterol HFA [Ventolin HFA 90 2 puff IH Q4H PRN 06/18/16 mcg/actuation (8 g)] Alprazolam [Xanax] 0.5 mg PO TID 06/18/16 Citalopram Hydrobromide 40 mg PO HS 06/18/16 [Citalopram HBr] Lisinopril [Zestril] 10 mg PO DAILY 06/18/16 Mirtazapine [Remeron] 15 mg PO HS 06/18/16 Multivit-Min/FA/Lycopen/Lutein 1 tab PO DAILY 10/05/16 [Centrum Silver Tablet] QUEtiapine [SEROquel] 300 mg PO HS 10/05/16 Simvastatin [Zocor] 40 mg PO HS 10/05/16 oxyCODONE [oxyCODONE Immediate 15 mg PO QID PRN 10/05/16 Release Tab] Saccharomyces Boulardi [Florastor] 250 mg PO BID cap 10/11/16 Insulin Detemir [Levemir] 12 units SC HS #2 vial 05/21/17 Insulin Lispro [Humalog (Insulin 4 unit SQ ACHS #1 cartridge 05/21/17 Lispro)] Levothyroxine [Synthroid] 25 mcg PO DAILY #30 tab 05/21/17 Nitrofurantoin Macrocrystals 100 mg PO Q12 5 Days #10 cap 05/21/17 [Macrobid] Ondansetron [Zofran] 4 mg PO Q8 PRN #10 tab 05/21/17 Pantoprazole Sodium [Protonix] 20 mg PO DAILY #30 ect 05/21/17 - Allergies Allergies/Adverse Reactions: Allergies Allergy/AdvReac Type Severity Reaction Status Date / Time Penicillins Allergy RASH Verified 10/05/16 13:07 lipitor AdvReac Intermediate RASH Uncoded 10/05/16 23:59 Review of Systems ROS Statement: Except As Marked, All Systems Reviewed And Found Negative Gastrointestinal: Positive for: Nausea, Vomiting, Abdominal Pain, Diarrhea Physical Exam - Reviewed Nursing Documentation Reviewed: Yes Vital Signs Reviewed: Yes - Physical Exam Appears: Positive for: Non-toxic, No Acute Distress Head Exam: Positive for: ATRAUMATIC, NORMAL INSPECTION, NORMOCEPHALIC Skin: Positive for: Normal Color, Warm, DRY Eye Exam: Positive for: EOMI, Normal appearance, PERRL ENT: Positive for: Normal ENT Inspection Neck: Positive for: Normal, Painless ROM Cardiovascular/Chest: Positive for: Regular Rate, Rhythm Respiratory: Positive for: CNT, Normal Breath Sounds Gastrointestinal/Abdominal: Positive for: Soft, Tenderness (diffuse). Negative for: Guarding Back: Positive for: Normal Inspection. Negative for: L CVA Tenderness, R CVA Tenderness Extremity: Positive for: Normal ROM. Negative for: Tenderness Neurologic/Psych: Positive for: Alert, Oriented - Laboratory Results Result Diagrams: 08/30/17 15:00 Interpretation Of Abn Labs: 520 glucose - ECG ECG: Positive for: Interpreted By Me, Viewed By Me ECG Rhythm: Positive for: Sinus Rhythm Interpretation Of Abn EKG: pacs O2 Sat by Pulse Oximetry: 98 Pulse Ox Interpretation: Normal - Radiology X-Ray: Read By Radiologist X-Ray Interpretation: No Acute Disease - Progress ED Course And Treament: 1843: Stable. AAOx3. Spoke with Dr. Hong. Will admit for further management. Pain control and glucose control. Dr. Hong will fu on ct and tx further accordingly. Disposition - Clinical Impression Clinical Impression: Hyperglycemia, Abdominal pain, Gastroparesis - Patient ED Disposition Is Patient to be Admitted: Yes Counseled Patient/Family Regarding: Studies Performed, Diagnosis - Disposition Disposition Time: 18:47 Condition: FAIR
[2017-08-30] MEDS ORDERED: Famotidine 20mg/50ml 20 MG/50 ML BAG IVPB ONE (14:32)
[2017-08-30] MEDS ORDERED: Morphine 4 MG/ML VIAL ONE ×2 (14:32→19:34)
[2017-08-30] MEDS ORDERED: Iohexol 240 (50 ml) ONE (14:33)
--- NOTE | 2017-08-30 15:04 | RAD ---
HISTORY: Dyspnea COMPARISON: 05/18/2017. FINDINGS: LUNGS: The lungs are well inflated and clear. PLEURA: No significant pleural effusion identified, no pneumothorax apparent. CARDIOVASCULAR: Normal. OSSEOUS STRUCTURES: No significant abnormalities. VISUALIZED UPPER ABDOMEN: Normal. OTHER FINDINGS: None. IMPRESSION: No active pulmonary disease.
[2017-08-30] MEDS ORDERED: Morphine 4 MG/ML VIAL IV ONE (15:15)
[2017-08-30 15:28] LABS: VENOUS BLOOD GAS BASE EXCESS 2.4 mmol/L (0.0-2.0); VENOUS BLOOD GAS PCO2 30 mmHg (40-60); VENOUS BLOOD GAS PO2 32 mm/Hg (30-55); VENOUS BLOOD PH 7.52 (7.32-7.43)
[2017-08-30 15:28] LABS: BASO # 0.1 K/uL (0.0-0.2); BASO % 0.8 % (0.0-2.0); EOS # 0.1 K/uL (0.0-0.7); EOS % 0.9 % (0.0-4.0); HEMOGLOBIN 11.9 g/dL (12.0-16.0); LYMPH % 20.4 % (20.0-40.0); MEAN CELL VOLUME 95.6 fl (81.0-99.0); MEAN CORPUSCULAR HEMOGLOBIN 32.4 pg (27.0-31.0); MEAN CORPUSCULAR HGB CONC 33.9 g/dL (33.0-37.0); MEAN PLATELET VOLUME 9.4 fl (7.2-11.7); MONO # 0.6 K/uL (0.0-0.8); MONO % 6.2 % (0.0-10.0); NEUT % 71.7 % (50.0-75.0); RBC 3.67 Mil/uL (3.80-5.20); RED CELL DISTRIBUTION WIDTH 13.4 % (11.5-14.5); WHITE BLOOD COUNT 9.8 K/uL (4.8-10.8)
[2017-08-30] MEDS ORDERED: HYDROmorphone 0.5 mg/0.5 ml ISec ONE (15:44)
[2017-08-30] MEDS ORDERED: HYDROmorphone 0.5 mg/0.5 ml ISec IVP STA (15:44)
[2017-08-30] MEDS ORDERED: Insulin Regular 100 units/ml IV STA (15:55)
[2017-08-30 15:56] LABS: INR 0.8 (0.9-1.2); PARTIAL THROMBOPLASTIN TIME 20.2 Seconds (25.6-37.1); PROTHROMBIN TIME 9.1 Seconds (9.8-13.1)
[2017-08-30 16:26] LABS: ALB/GLOB RATIO 1.3 (1.0-2.1); ALBUMIN 4.5 g/dL (3.5-5.0); ALT/SGPT 17 U/L (9-52); AST/SGOT 35 U/L (14-36); BLOOD UREA NITROGEN 20 mg/dl (7-17); CALCIUM 9.6 mg/dL (8.4-10.2); GFR AFRICAN-AMERICAN > 60; GFR NON-AFRICAN AMERICAN > 60; LIPASE 110 U/L (23-300)
[2017-08-30] MEDS ORDERED: Insulin Regular 100 units/ml ONE (17:21)
[2017-08-30] MEDS ORDERED: Iohexol 300 100 ML IJ ONE (17:35)
[2017-08-30] MEDS ORDERED: Sodium Chloride 0.9% 50 ML IV ONE (17:35)
[2017-08-30] MEDS ORDERED: Dextrose 50% SYRINGE Inj (50 ml) IV PRN (19:18)
[2017-08-30] MEDS ORDERED: Glucagon Recombinant 1 mg Inj IM PRN (19:18)
[2017-08-30] MEDS ORDERED: oxyCODONE 5 mg Immediate Release Tab PO PRN (19:19)
[2017-08-30] MEDS ORDERED: Albuterol HFA 90 mcg/actuation (8 g) IH PRN (19:19)
--- NOTE | 2017-08-30 19:36 | CP.PCM.HP ---
<Nadeem Hong - Last Filed: 08/30/17 19:33> History of Present Illness - History of Present Illness History of Present Illness: CC: Abdominal Pain HPI: 56 y/o woman w/ a PMH of HTN, CAD s/p stent 2006, IDDM type 2, Hypothyroidism, neuropathy, anxiety, chronic right sided hemicorporal pain of an unknown etiology( daily regimen of Oxycontin as per Dr. Colindres.) presents to the ED with abdominal pain. The patient reports that the pain started about this morning at 08:00 after eating breakfast. Patient does not usually have appetite to eat large breakfast but psychiatrist started patient on new medication which stimulated patient's appetite. Patient consumed toast, coffee , and fried eggs. The patient then reports epigastric pain, sharp in nature, non-radiating, constant, with multiple episodes of nausea, vomiting, and diarrhea. The vomit was >5 episodes that was non-bloody, no coffee ground emesis but possibly bilious and the diarrhea was >5 episodes and watery. The patient denies sick contacts, recent travel, and recent illness. The patient reports having colitis over 3 months ago and this is similar to that episode. The patient denies syncope, headaches, chest pain, SOB, dysuria, and fever. ED course: vitals: 97.7 F, 88 beats/min, 146/107 mmHg, 20 breaths/min, O2 98% room air CT abdomen/pelvis w/ PO and IV contrast: small bowel colitis EKG: Sinus rhythm, prolonged QT, QTc 523, no acute ST elevation/depression CXR: no active disease VBG: pH 7.52, pCO2 30, HCO3 26.1, pO2 32, lactate 1.9 CBC: 9.8>11.9/35.1<315 CMP: 138/5.1, 102/23, 20/0.7, glucose 520, AST 35, ALT 17, alk phos 128 lipase: 110 troponin <0.0120 M.5 Phos: 3.5 Given pepcid 20 mg IV, dilaudid 1 mg IV, insulin human regular 5 units IV, reglan 10 mg IV, morphine 4 mg IV, IVF NS 1 L bolus x2 PMD: [facility] pain management: Dr. Colindres PMH: HTN, CAD s/p stent 2007, DM type 2, Hypothyroidism, neuropathy, anxiety, chronic right sided hemicorporal pain of an unknown etiology( daily regimen of Oxycontin as per Dr. Colindres.) meds: see med list and [facility] Allergies: penicillins (rash) PSH: tonsillectomy, hysterectomy (2001), cholecystectomy (), appendectomy ( 1997) Hosp: multiple admissions for colitis most recently 05/2017 Fam: both parents , mother had thyroid cancer SOC: smokes about 0.5-1 pack/day for 42 years, denies alcohol and drugs Pharmacy: [facility] ROS: 12 points assessed and negative unless otherwise reported in HPI Present on Admission - Present on Admission Any Indicators Present on Admission: Yes History of DVT/PE: No History of Uncontrolled Diabetes: Yes Urinary Catheter: No Decubitus Ulcer Present: No Review of Systems - Review of Systems All systems: reviewed and no additional remarkable complaints except - Constitutional Constitutional: absent: Chills, Fever, Headache - EENT Eyes: absent: Change in Vision - Cardiovascular Cardiovascular: absent: Chest Pain - Respiratory Respiratory: absent: Dyspnea - Gastrointestinal Gastrointestinal: As Per HPI, Abdominal Pain, Diarrhea, Nausea, Vomiting. absent: Coffee Ground Emesis, Hematemesis, Hematochezia, Melena - Genitourinary Genitourinary: absent: Dysuria - Integumentary Integumentary: absent: Rash Past Patient History - Infectious Disease Hx of Infectious Diseases: C.diff - Past Medical History & Family History Past Medical History?: Yes - Past Social History Alcohol: None Drugs: Denies - CARDIAC Hx Congestive Heart Failure: No Hx Hypercholesterolemia: No Hx Hypertension: Yes - PULMONARY Hx Asthma: Yes Hx Chronic Obstructive Pulmonary Disease (COPD): No - NEUROLOGICAL Hx Neurological Disorder: Yes (Diabetic neuropathy) - ENDOCRINE/METABOLIC Hx Hyperthyroidism: Yes (pt is not sure what she has ) Hx Hypothyroidism: Yes - HEMATOLOGICAL/ONCOLOGICAL Hx Anemia: Yes Hx Human Immunodeficiency Virus (HIV): No - INTEGUMENTARY Hx Dermatological Problems: Yes - MUSCULOSKELETAL/RHEUMATOLOGICAL Hx Arthritis: No Hx Fractures: Yes (rib (left)) Hx Rheumatoid Arthritis: No - GASTROINTESTINAL Hx Gastritis: Yes - GENITOURINARY/GYNECOLOGICAL Hx Genitourinary Disorders: No - PSYCHIATRIC Hx Anxiety: Yes Hx Depression: Yes - SURGICAL HISTORY Hx Appendectomy: Yes Hx Cholecystectomy: Yes Hx Coronary Stent: Yes Hx Tonsillectomy: Yes - ANESTHESIA Hx Anesthesia: Yes Hx Anesthesia Reactions: No Hx Malignant Hyperthermia: No Meds Allergies/Adverse Reactions: Allergies Allergy/AdvReac Type Severity Reaction Status Date / Time Penicillins Allergy RASH Verified 10/05/16 13:07 lipitor AdvReac Intermediate RASH Uncoded 10/05/16 23:59 Physical Exam - Constitutional Appears: Non-toxic, No Acute Distress - Head Exam Head Exam: ATRAUMATIC, NORMAL INSPECTION, NORMOCEPHALIC - Eye Exam Eye Exam: Normal appearance - ENT Exam ENT Exam: Mucous Membranes Moist - Respiratory Exam Respiratory Exam: Clear to Auscultation Bilateral. absent: Accessory Muscle Use , Decreased Breath Sounds, Rales, Rhonchi, Wheezes, Respiratory Distress - Cardiovascular Exam Cardiovascular Exam: REGULAR RHYTHM. absent: Tachycardia - GI/Abdominal Exam GI & Abdominal Exam: Normal Bowel Sounds, Soft, Tenderness (epigastric). absent : Distended, Guarding (voluntary) - Extremities Exam Extremities exam: Negative for: calf tenderness - Neurological Exam Neurological exam: Alert, Oriented x3 - Skin Skin Exam: Dry, Intact, Normal Color, Warm Results - Vital Signs Recent Vital Signs: Last Vital Signs Temp 97.7 F 08/30/17 14:04 Pulse 88 08/30/17 14:04 Resp 20 08/30/17 14:04 BP 146/107 H 08/30/17 14:04 Pulse Ox 98 08/30/17 18:49 - Labs Result Diagrams: 08/30/17 15:00 08/30/17 15:00 Labs: Laboratory Results - last 24 hr 08/30/17 08/30/17 08/30/17 15:00 15:00 15:00 WBC 9.8 RBC 3.67 L Hgb 11.9 L Hct 35.1 MCV 95.6 D MCH 32.4 H MCHC 33.9 RDW 13.4 Plt Count 315 MPV 9.4 Neut % (Auto) 71.7 Lymph % (Auto) 20.4 [place] % (Auto) 6.2 Eos % (Auto) 0.9 Baso % (Auto) 0.8 Neut # (Auto) 7.0 Lymph # (Auto) 2.0 [place] # (Auto) 0.6 Eos # (Auto) 0.1 Baso # (Auto) 0.1 PT 9.1 L INR 0.8 L APTT 20.2 L pO2 VBG pH VBG pCO2 VBG HCO3 VBG Total CO2 VBG O2 Sat (Calc) VBG Base Excess VBG Potassium Glucose Lactate FiO2 Crit Value Called To Crit Value Called By Crit Value Read Back Blood Gas Notified Time Sodium 138 Potassium 5.1 H Chloride 102 Carbon Dioxide 23 Anion Gap 18 BUN 20 H Creatinine 0.7 Est GFR ( Amer) > 60 Est GFR (Non-Af Amer) > 60 Random Glucose 520 H* D Calcium 9.6 Phosphorus 3.5 Magnesium 2.5 H Total Bilirubin 0.9 AST 35 ALT 17 Alkaline Phosphatase 128 H D Troponin I < 0.0120 Total Protein 7.9 Albumin 4.5 Globulin 3.4 Albumin/Globulin Ratio 1.3 Lipase 110 Venous Blood Potassium 08/30/17 15:17 WBC RBC Hgb Hct MCV MCH MCHC RDW Plt Count MPV Neut % (Auto) Lymph % (Auto) [place] % (Auto) Eos % (Auto) Baso % (Auto) Neut # (Auto) Lymph # (Auto) [place] # (Auto) Eos # (Auto) Baso # (Auto) PT INR APTT pO2 32 VBG pH 7.52 H VBG pCO2 30 L VBG HCO3 26.1 VBG Total CO2 25.4 VBG O2 Sat (Calc) 75.8 H VBG Base Excess 2.4 H VBG Potassium 4.4 Glucose 570 H* Lactate 1.9 FiO2 21.0 Crit Value Called To vance Green md Crit Value Called By Keeley carpenter Crit Value Read Back Y Blood Gas Notified Time 1527 Sodium 135.0 Potassium Chloride 101.0 Carbon Dioxide Anion Gap BUN Creatinine Est GFR ( Amer) Est GFR (Non-Af Amer) Random Glucose Calcium Phosphorus Magnesium Total Bilirubin AST ALT Alkaline Phosphatase Troponin I Total Protein Albumin Globulin Albumin/Globulin Ratio Lipase Venous Blood Potassium 4.4 Assessment & Plan - Assessment and Plan (Free Text) Assessment: 56 y/o woman presents to the ED with abdominal pain. Reported as similar to colitis episodes in the past Plan: Abdominal pain - Epigastric, similar to colitis episodes in the past - vitals: 97.7 F, 88 beats/min, 146/107 mmHg, 20 breaths/min, O2 98% room air - CBC: 9.8>11.9/35.1<315 - CMP: 138/5.1, 102/23, 20/0.7, glucose 520, AST 35, ALT 17, alk phos 128 - lipase: 110 - troponin <0.0120 - M.5 - Phos: 3.5 - CT abdomen/pelvis w/ PO and IV contrast: small bowel colitis - EKG: Sinus rhythm, prolonged QT, QTc 523, no acute ST elevation/depression - CXR: no active disease - VBG: pH 7.52, pCO2 30, HCO3 26.1, pO2 32, lactate 1.9 - Given pepcid 20 mg IV, dilaudid 1 mg IV, insulin human regular 5 units IV, reglan 10 mg IV, morphine 4 mg IV, IVF NS 1 L bolus x2 - NPO except medications - start ciprofloxacin 400 mg IV Q12h - start metronidazole 500 mg IV Q8h - IVF NS @ 80 mL/hr - f/u CBC, CMP - monitor for acute changes - admit to Med/Surg Hyperglycemia - IDDM Type 2 - glucose 520 - HgbA1c: 13.1 (05/2017) - Insulin Levemir 12 units SC HS - Insulin lispro 4 units SQ ACHS - Insulin Correction Scale SC ACHS - hypoglycemia protocol Hypothyroidism - levothyroxine 50 mcg PO daily HTN - lisinopril 10 mg PO daily Hx of Major Depression - home medications: citalopram 40 mg PO daily Chronic pain - oxycodone 15 mg PO Q6h prn - patient follows up with Dr. Colindres for pain management Prophylactic measures - DVT: Lovenox 40 mg SC daily <Any Hernandes - Last Filed: 08/31/17 09:17> Results - Vital Signs Recent Vital Signs: Last Vital Signs Temp 99.7 F H 08/31/17 08:29 Pulse 80 08/31/17 08:29 Resp 20 08/31/17 08:29 BP 138/69 08/31/17 08:29 Pulse Ox 97 08/31/17 08:29 - Labs Result Diagrams: 08/31/17 05:30 08/31/17 05:30 Labs: Laboratory Results - last 24 hr 08/30/17 08/30/17 08/30/17 15:00 15:00 15:00 WBC 9.8 RBC 3.67 L Hgb 11.9 L Hct 35.1 MCV 95.6 D MCH 32.4 H MCHC 33.9 RDW 13.4 Plt Count 315 MPV 9.4 Neut % (Auto) 71.7 Lymph % (Auto) 20.4 [place] % (Auto) 6.2 Eos % (Auto) 0.9 Baso % (Auto) 0.8 Neut # (Auto) 7.0 Lymph # (Auto) 2.0 [place] # (Auto) 0.6 Eos # (Auto) 0.1 Baso # (Auto) 0.1 PT 9.1 L INR 0.8 L APTT 20.2 L pO2 VBG pH VBG pCO2 VBG HCO3 VBG Total CO2 VBG O2 Sat (Calc) VBG Base Excess VBG Potassium Glucose Lactate FiO2 Crit Value Called To Crit Value Called By Crit Value Read Back Blood Gas Notified Time Sodium 138 Potassium 5.1 H Chloride 102 Carbon Dioxide 23 Anion Gap 18 BUN 20 H Creatinine 0.7 Est GFR ( Amer) > 60 Est GFR (Non-Af Amer) > 60 POC Glucose (mg/dL) Random Glucose 520 H* D Calcium 9.6 Phosphorus 3.5 Magnesium 2.5 H Total Bilirubin 0.9 AST 35 ALT 17 Alkaline Phosphatase 128 H D Troponin I < 0.0120 Total Protein 7.9 Albumin 4.5 Globulin 3.4 Albumin/Globulin Ratio 1.3 Lipase 110 Venous Blood Potassium 08/30/17 08/30/17 08/30/17 15:17 18:55 22:49 WBC RBC Hgb Hct MCV MCH MCHC RDW Plt Count MPV Neut % (Auto) Lymph % (Auto) [place] % (Auto) Eos % (Auto) Baso % (Auto) Neut # (Auto) Lymph # (Auto) [place] # (Auto) Eos # (Auto) Baso # (Auto) PT INR APTT pO2 32 VBG pH 7.52 H VBG pCO2 30 L VBG HCO3 26.1 VBG Total CO2 25.4 VBG O2 Sat (Calc) 75.8 H VBG Base Excess 2.4 H VBG Potassium 4.4 Glucose 570 H* Lactate 1.9 FiO2 21.0 Crit Value Called To vance Green md Crit Value Called By Keeley carpenter Crit Value Read Back Y Blood Gas Notified Time 1527 Sodium 135.0 Potassium Chloride 101.0 Carbon Dioxide Anion Gap BUN Creatinine Est GFR ( Amer) Est GFR (Non-Af Amer) POC Glucose (mg/dL) 156 H 136 H Random Glucose Calcium Phosphorus Magnesium Total Bilirubin AST ALT Alkaline Phosphatase Troponin I Total Protein Albumin Globulin Albumin/Globulin Ratio Lipase Venous Blood Potassium 4.4 08/31/17 08/31/17 08/31/17 05:30 05:30 05:39 WBC 9.0 RBC 3.01 L Hgb 9.7 L D Hct 28.6 L MCV 95.1 MCH 32.2 H MCHC 33.9 RDW 13.5 Plt Count 266 MPV 9.6 Neut % (Auto) 51.3 Lymph % (Auto) 38.1 [place] % (Auto) 8.2 Eos % (Auto) 2.0 Baso % (Auto) 0.4 Neut # (Auto) 4.6 Lymph # (Auto) 3.4 [place] # (Auto) 0.7 Eos # (Auto) 0.2 Baso # (Auto) 0.0 PT INR APTT pO2 VBG pH VBG pCO2 VBG HCO3 VBG Total CO2 VBG O2 Sat (Calc) VBG Base Excess VBG Potassium Glucose Lactate FiO2 Crit Value Called To Crit Value Called By Crit Value Read Back Blood Gas Notified Time Sodium 139 Potassium 3.8 Chloride 108 H Carbon Dioxide 19 L Anion Gap 16 BUN 14 Creatinine 0.6 L Est GFR ( Amer) > 60 Est GFR (Non-Af Amer) > 60 POC Glucose (mg/dL) 160 H Random Glucose 140 H Calcium 8.2 L Phosphorus Magnesium Total Bilirubin 0.4 AST 22 ALT 28 Alkaline Phosphatase 88 Troponin I Total Protein 5.8 L Albumin 3.1 L D Globulin 2.7 Albumin/Globulin Ratio 1.1 Lipase Venous Blood Potassium Attending/Attestation - Attestation I have personally seen and examined this patient.: Yes I have fully participated in the care of the patient.: Yes I have reviewed all pertinent clinical information: Yes
--- NOTE | 2017-08-30 20:01 | CT ---
EXAM: CT Abdomen and Pelvis With Intravenous Contrast EXAM DATE/TIME: 08/30/2017 2:16 PM CLINICAL HISTORY: 56 years old, female; Pain; Abdominal pain; Generalized; Additional info: Abd pain TECHNIQUE: Axial computed tomography images of the abdomen and pelvis with intravenous contrast. All CT scans at this facility use at least one of these dose optimization techniques: automated exposure control; mA and/or kV adjustment per patient size (includes targeted exams where dose is matched to clinical indication); or iterative reconstruction. Coronal and sagittal reformatted images were created and reviewed. COMPARISON: CT - ABD PELVIS PO IV CONTRAST 2016-10-05 17:03 FINDINGS: Lung bases: Heart size is normal. Distal esophagus is mildly distended with fluid and trace oral contrast. There is dependent atelectasis at the lung bases left greater than right. There is minimal pleural nodularity at the right base. ABDOMEN: Liver: There is fatty infiltration of the liver. Gallbladder and bile ducts: Gallbladder is absent. There is mild intra-extrahepatic biliary ductal prominence. Pancreas: Head of the pancreas is atrophic. Tail and body are absent or severely atrophic.. Spleen: Spleen is unremarkable. There are accessory splenules in the left upper quadrant. Adrenals: unremarkable Kidneys and ureters: unremarkable Stomach and bowel: Stomach is distended with contrast. There is rotational anomaly of the small bowel. Duodenal jejunal junction is in the right upper quadrant. Majority of the small bowel is in the right abdomen. There is no obstruction. Cecum is low in the pelvis posterior to the bladder. There are clips at the base of the cecum. Appendix is not visualized. Terminal ileum is unremarkable.There is no pericecal inflammation. Ascending colon is in the left abdomen. There is mild diffuse colonic wall thickening. There is mild diffuse colonic wall enhancement. PELVIS: Appendix: See stomach and bowel Bladder: Bladder is partially distended. There is mild bladder wall prominence. Reproductive: Uterus is absent. There are no adnexal masses. ABDOMEN and PELVIS: Intraperitoneal space: There is no free air or free fluid. Bones/joints: Bony structures are mildly osteopenic. There degenerative changes. Soft tissues: There is a peristomal fat-containing umbilical hernia. Vasculature: There are calcified phleboliths. 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
[2017-08-30] MEDS: Sodium Chloride 0.9% 1,000 ML IV SCH (20:38)
[2017-08-30] MEDS ORDERED: Ciprofloxacin 400mg/200ml D5W 400 MG/200 ML BAG IVPB SCH (21:00)
[2017-08-30] MEDS ORDERED: Ciprofloxacin 400mg/200ml D5W 400 MG/200 ML BAG IVPB ONE (21:20)
[2017-08-30] MEDS ORDERED: metroNIDAZOLE 500mg/100ml NS 100 ML IVPB ONE (21:20)
[2017-08-30] MEDS: metroNIDAZOLE 500mg/100ml NS 100 ML IVPB SCH (21:22)
[2017-08-30] MEDS ORDERED: Insulin Lispro (humaLOG) 100 Units/ml Inj SC SCH (22:00)
[2017-08-31] MEDS: Insulin Lispro (humaLOG) 100 Units/ml Inj SC SCH ×7 (00:05→16:30)
[2017-08-31] MEDS: Insulin Detemir 100 Units/ml Inj SC SCH ×2 (00:06→23:08)
[2017-08-31] MEDS: metroNIDAZOLE 500mg/100ml NS 100 ML IVPB SCH ×3 (02:00→17:11)
[2017-08-31] MEDS: oxyCODONE 5 mg Immediate Release Tab PO PRN ×3 (02:15→15:47)
--- NOTE | 2017-08-31 07:32 | CP.PCM.PN ---
<Dony Leavitt - Last Filed: 08/31/17 12:13> Subjective - Date & Time of Evaluation Date of Evaluation: 08/31/17 Time of Evaluation: 07:45 - Subjective Subjective: Patient was seen and examined this morning at bedside. NAD, NPO, c/o nausea and epigastric abdominal pain, no vomiting or diarrhea so far in the morning. Patient denies and chest pain, SOB, dizziness, palpitations, urinary symptoms or fever. Objective - Vital Signs/Intake and Output Vital Signs (last 24 hours): Temp Pulse Resp BP Pulse Ox 98.4 F 79 20 154/78 H 100 08/31/17 00:38 08/31/17 00:38 08/31/17 00:38 08/31/17 01:05 08/31/17 00:38 - Medications Medications: Current Medications Albuterol (Ventolin Hfa 90 Mcg/Actuation (8 G)) 2 puff IH Q4H PRN PRN Reason: Shortness of Breath Alprazolam (Xanax) 0.5 mg PO TID [facility] Atorvastatin Calcium (Lipitor) 20 mg PO [facility] Last Admin: 08/31/17 00:03 Dose: Not Given Citalopram Hydrobromide (Celexa) 40 mg PO DAILY [facility] Dextrose (Dextrose 50% Inj) 0 ml IV STAT PRN; Protocol PRN Reason: Hypoglycemia Protocol Dextrose (Glutose 15) 0 gm PO ONCE PRN; Protocol PRN Reason: Hypoglycemia Protocol Enoxaparin Sodium (Lovenox) 40 mg SC DAILY [facility] PRN Reason: Protocol Glucagon (Glucagen Diagnostic Kit) 0 mg IM STAT PRN; Protocol PRN Reason: Hypoglycemia Protocol Sodium Chloride (Sodium Chloride 0.9%) 1,000 mls @ 80 mls/hr IV .[id number] [facility] Last Admin: 08/30/17 20:38 Dose: 80 mls/hr Metronidazole (Flagyl 500mg/100ml Ns) 100 mls @ 100 mls/hr IVPB Q8 [facility] PRN Reason: Protocol Last Admin: 08/31/17 02:00 Dose: 100 mls/hr Insulin Detemir (Levemir) 12 units SC [facility] Last Admin: 08/31/17 00:06 Dose: Not Given Insulin Human Lispro (Humalog) 0 units SC ACHS [facility] PRN Reason: Protocol Last Admin: 08/31/17 00:05 Dose: Not Given Insulin Human Lispro (Humalog) 4 units SC ACHS [facility] Last Admin: 08/31/17 00:08 Dose: Not Given Levothyroxine Sodium (Synthroid) 50 mcg PO ACB [facility] Lisinopril (Zestril) 10 mg PO DAILY [facility] Mirtazapine (Remeron) 15 mg PO HS [facility] Last Admin: 08/31/17 00:04 Dose: Not Given Oxycodone HCl (Oxycodone Immediate Release Tab) 15 mg PO QID PRN PRN Reason: Pain, severe (8-10) Last Admin: 08/31/17 02:15 Dose: 15 mg Quetiapine Fumarate (Seroquel) 300 mg PO HS [facility] Last Admin: 08/31/17 00:04 Dose: Not Given - Labs Labs: 08/30/17 15:00 08/30/17 15:00 PT 9.1 Seconds (9.8-13.1) L 08/30/17 15:00 INR 0.8 (0.9-1.2) L 08/30/17 15:00 APTT 20.2 Seconds (25.6-37.1) L 08/30/17 15:00 - Constitutional Appears: No Acute Distress - Head Exam Head Exam: NORMAL INSPECTION - Eye Exam Eye Exam: Normal appearance Pupil Exam: NORMAL ACCOMODATION - ENT Exam ENT Exam: Mucous Membranes Moist - Respiratory Exam Respiratory Exam: Clear to Ausculation Bilateral, NORMAL BREATHING PATTERN - Cardiovascular Exam Cardiovascular Exam: REGULAR RHYTHM - GI/Abdominal Exam GI & Abdominal Exam: Tenderness (epigastric region), Normal Bowel Sounds. absent: Distended, Guarding, Rigid - Extremities Exam Extremities Exam: Full ROM, Normal Capillary Refill, Normal Inspection. absent : Pedal Edema, Tenderness - Back Exam Back Exam: NORMAL INSPECTION. absent: CVA tenderness (L), CVA tenderness (R) - Neurological Exam Neurological Exam: Alert, Awake, CN II-XII Intact, Oriented x3 - Psychiatric Exam Psychiatric exam: Anxious - Skin Skin Exam: Dry, Intact, Normal Color, Warm Assessment and Plan - Assessment and Plan (Free Text) Assessment: A/P: 56 y/o woman presents to the ED with abdominal pain, nausea, vomiting and diarrhea. Reported as similar to colitis episodes in the past. Abdominal pain possibly due to infectious colitis/ Hx of Colitis - Epigastric, similar to colitis episodes in the past - Afebrile, No WBC - CT abdomen/pelvis w/ PO and IV contrast: reviewed, see full report - S/p ER; pepcid 20 mg IV, dilaudid 1 mg IV, insulin human regular 5 units IV, reglan 10 mg IV, morphine 4 mg IV, IVF NS 1 L bolus x2 - Start ciprofloxacin 400 mg IV Q12h - Start metronidazole 500 mg IV Q8h - GI, Dr. Allred Consult, will follow recommendations - NPO except medications Hyperglycemia - IDDM Type 2 - glucose 520 - HgbA1c: 13.1 (05/2017) - Insulin Levemir 12 units SC HS - Insulin lispro 2 units SQ AC and ACTID - Insulin Correction Scale SC ACHS - hypoglycemia protocol Hypothyroidism - C/w Home medication, levothyroxine 50 mcg PO daily HTN - C/w home meds; lisinopril 10 mg PO daily Hx of Major Depression - home medications: citalopram 40 mg PO daily Chronic pain - oxycodone 15 mg PO Q6h prn - patient follows up with Dr. Colindres for pain management Prophylactic measures - DVT: Lovenox 40 mg SC daily <Any Hernandes - Last Filed: 09/01/17 08:33> Objective - Vital Signs/Intake and Output Vital Signs (last 24 hours): Temp Pulse Resp BP Pulse Ox 98.9 F 80 20 169/70 H 99 09/01/17 08:18 09/01/17 08:18 09/01/17 08:18 09/01/17 08:18 09/01/17 08:18 - Medications Medications: Current Medications Albuterol (Ventolin Hfa 90 Mcg/Actuation (8 G)) 2 puff IH Q4H PRN PRN Reason: Shortness of Breath Alprazolam (Xanax) 0.5 mg PO TID [facility] Last Admin: 08/31/17 16:24 Dose: 0.5 mg Atorvastatin Calcium (Lipitor) 20 mg PO HS [facility] Last Admin: 08/31/17 21:03 Dose: Not Given Citalopram Hydrobromide (Celexa) 40 mg PO DAILY [facility] Last Admin: 08/31/17 08:47 Dose: 40 mg Dextrose (Dextrose 50% Inj) 0 ml IV STAT PRN; Protocol PRN Reason: Hypoglycemia Protocol Dextrose (Glutose 15) 0 gm PO ONCE PRN; Protocol PRN Reason: Hypoglycemia Protocol Enoxaparin Sodium (Lovenox) 40 mg SC DAILY [facility] PRN Reason: Protocol Last Admin: 08/31/17 08:48 Dose: 40 mg Glucagon (Glucagen Diagnostic Kit) 0 mg IM STAT PRN; Protocol PRN Reason: Hypoglycemia Protocol Ciprofloxacin (Cipro 400mg/200ml Dsw) 400 mg in 200 mls @ 200 mls/hr IVPB Q12 [facility] PRN Reason: Protocol Last Admin: 08/31/17 20:15 Dose: 200 mls/hr Metronidazole (Flagyl 500mg/100ml Ns) 100 mls @ 100 mls/hr IVPB Q8 [facility] PRN Reason: Protocol Last Admin: 09/01/17 00:14 Dose: 100 mls/hr Potassium Chloride/Dextrose/Sod Cl (Potassium Chl 20 Meq In D5-Ns) 1,000 mls @ 85 mls/hr IV .[id number] [facility] Stop: 09/01/17 12:42 Last Admin: 09/01/17 02:15 Dose: Not Given Insulin Detemir (Levemir) 12 units SC HS [facility] Last Admin: 08/31/17 23:08 Dose: Not Given Insulin Human Lispro (Humalog) 0 units SC AC [facility] PRN Reason: Protocol Last Admin: 08/31/17 16:30 Dose: 6 units Insulin Human Lispro (Humalog) 2 units SC ACTID [facility] Last Admin: 08/31/17 16:30 Dose: Not Given Ketorolac Tromethamine (Toradol) 15 mg IVP Q6 PRN PRN Reason: Pain, moderate (4-7) Ketorolac Tromethamine (Toradol) 30 mg IVP Q6 PRN PRN Reason: Pain, severe (8-10) Last Admin: 08/31/17 14:06 Dose: 30 mg Levothyroxine Sodium (Synthroid) 50 mcg PO ACB [facility] Last Admin: 09/01/17 06:38 Dose: 50 mcg Lisinopril (Zestril) 10 mg PO DAILY [facility] Last Admin: 08/31/17 10:18 Dose: 10 mg Mirtazapine (Remeron) 15 mg PO HS [facility] Last Admin: 08/31/17 21:01 Dose: 15 mg Oxycodone HCl (Oxycodone Immediate Release Tab) 15 mg PO Q6 [facility] Last Admin: 09/01/17 04:08 Dose: 15 mg Pantoprazole Sodium (Protonix Ec Tab) 40 mg PO DAILY [facility] Quetiapine Fumarate (Seroquel) 300 mg PO HS [facility] Last Admin: 08/31/17 21:01 Dose: 300 mg - Labs Labs: 09/01/17 05:30 09/01/17 05:30 PT 9.1 Seconds (9.8-13.1) L 08/30/17 15:00 INR 0.8 (0.9-1.2) L 08/30/17 15:00 APTT 20.2 Seconds (25.6-37.1) L 08/30/17 15:00 Attending/Attestation - Attestation I have personally seen and examined this patient.: Yes I have fully participated in the care of the patient.: Yes I have reviewed all pertinent clinical information, including history, physical exam and plan: Yes
[2017-08-31 07:46] LABS: BASO % 0.4 % (0.0-2.0); EOS # 0.2 K/uL (0.0-0.7); HEMOGLOBIN 9.7 g/dL (12.0-16.0); LYMPH # 3.4 K/uL (1.0-4.3); LYMPH % 38.1 % (20.0-40.0); MEAN CELL VOLUME 95.1 fl (81.0-99.0); MEAN CORPUSCULAR HEMOGLOBIN 32.2 pg (27.0-31.0); MEAN CORPUSCULAR HGB CONC 33.9 g/dL (33.0-37.0); MEAN PLATELET VOLUME 9.6 fl (7.2-11.7); MONO # 0.7 K/uL (0.0-0.8); MONO % 8.2 % (0.0-10.0); NEUT # 4.6 K/uL (1.8-7.0); NEUT % 51.3 % (50.0-75.0); RBC 3.01 Mil/uL (3.80-5.20); RED CELL DISTRIBUTION WIDTH 13.5 % (11.5-14.5)
[2017-08-31 08:08] LABS: ALB/GLOB RATIO 1.1 (1.0-2.1); ALBUMIN 3.1 g/dL (3.5-5.0); ALT/SGPT 28 U/L (9-52); AST/SGOT 22 U/L (14-36); BLOOD UREA NITROGEN 14 mg/dl (7-17); CALCIUM 8.2 mg/dL (8.4-10.2); GFR AFRICAN-AMERICAN > 60; GFR NON-AFRICAN AMERICAN > 60
[2017-08-31] MEDS: Levothyroxine 50 MCG TAB PO SCH (08:12)
[2017-08-31] MEDS: Enoxaparin 40 mg Syringe SC SCH (08:48)
[2017-08-31] MEDS: Sodium Chloride 0.9% 1,000 ML IV SCH (08:48)
[2017-08-31] MEDS ORDERED: Levothyroxine 25 MCG TAB PO SCH (09:00)
[2017-08-31 10:43] LABS: SQUAMOUS EPITHIAL 2 /hpf (0-5); URINE BILIRUBIN NEGATIVE (NEGATIVE); URINE BLOOD NEGATIVE (NEGATIVE); URINE CLARITY SLIGHTY-CLOUDY (Clear); URINE COLOR YELLOW (YELLOW); URINE GLUCOSE (UA) >=500 mg/dL (Normal); URINE LEUKOCYTE ESTERASE NEG Leu/uL (Negative); URINE PROTEIN >=500 mg/dL (NEGATIVE); URINE UROBILINOGEN 0.2-1.0 mg/dL (0.2-1.0)
--- NOTE | 2017-08-31 12:57 | CARD ---
APPROVED REPORT EKG Measurement Heart [id number] [id number] <Conclusion> Sinus rhythm with short W[place] with premature atrial complexes with aberrant conduction T wave abnormality, consider anterior ischemia Prolonged QT Abnormal ECG
[2017-08-31] MEDS: Ciprofloxacin 400mg/200ml D5W 400 MG/200 ML BAG IVPB SCH ×2 (13:14→20:15)
[2017-08-31] MEDS ORDERED: Potassium Ch 20mEq in D5-1/2NS 1,000 ML IV SCH (14:15)
[2017-08-31] MEDS ORDERED: Atrop/Hyos/Scop/PhenoB Elixir PO ONE (15:44)
[2017-08-31] MEDS ORDERED: Alum-Mag Hydrox-Simethicone Susp (30 mL) PO ONE (15:44)
[2017-08-31] MEDS: Potassium Chl 20 mEq in D5-NS 1,000 ML IV SCH (15:51)
[2017-08-31] MEDS: oxyCODONE 5 mg Immediate Release Tab PO SCH ×3 (16:18→21:00)
--- NOTE | 2017-08-31 16:36 | CP.PCM.PCO ---
Physician Communication Note - Physician Communication Note Physician Communication Note: Paged by nurse, patient vomited, requesting IV morphine for abdominal pain Assessment/Plan - Assessment and Plan (Free Text) Assessment: Patient seen and examined at bedside, reports her she has nausea, vomiting and her abdominal pain is severe. -CT abd/pelvis showed rotational anomaly of small bowel without obstruction; colitis, fatty liver, severe atrophy vs absence of pancreatic body and tail Physical exam: Patient very anxious, requesting IV morphine and her home dose of oxycodone, no active emesis Abd: soft, diffuse tenderness to palpation. -Small amount of clear phlegm in container at bedside, no bilious/bloody content Plan: GI cocktail ordered for acute GI upset including: Maalox 30mL PO once, 10 mL PO once, 15mL viscous lidocaine 2% PO once, Famotidine 20mg IV once -patient had order for home oxycodone in place - Date & Time Date: 08/31/17 Time: 15:50
[2017-09-01] MEDS: metroNIDAZOLE 500mg/100ml NS 100 ML IVPB SCH ×3 (00:14→16:46)
[2017-09-01] MEDS: Potassium Chl 20 mEq in D5-NS 1,000 ML IV SCH (02:15)
[2017-09-01] MEDS: oxyCODONE 5 mg Immediate Release Tab PO SCH ×4 (04:08→21:25)
[2017-09-01] MEDS: Levothyroxine 50 MCG TAB PO SCH (06:38)
--- NOTE | 2017-09-01 07:16 | CP.PCM.CON ---
History of Present Illness - History of Present Illness History of Present Illness: Asked by hospitalist team for a GI consultation on this patient. 56 year old female with history of CAD, hypothyroidism, DM, anxiety/depression who presents to hospital with complaint of sudden onset abdominal pain which began day before yesterday after breakfast. Prior to this she was in usual state of health. She ate eggs, toast, coffee and within 10 minutes she developed sharp, 7/10 intensity epigastric abdominal pain along with multiple episodes of non- bloody emesis and diarrhea. She denies sick contacts, recent travel, or antibiotic use. Since arrival to hospital her diarrhea has resolved, however she continues to report abdominal pain and vomiting. She denies fever/chills, weight loss. She had an EGD/colonoscopy in July 2016 which showed internal hemorrhoid, hiatal hernia, helicobacter pylori associated gastritis s/p antibiotic therapy. Social history: intermittent cigarette use, no ETOH Family history: reviewed, patient denies history of GI malignancies Review of Systems - Review of Systems Review of Systems: - All other comprehensive 12 point review of systems performed, negative - Constitutional Constitutional: Weakness - Cardiovascular Cardiovascular: absent: Acrocyanosis, Chest Pain, Chest Pain at Rest, Chest Pain with Activity, Claudication, Diaphoresis, Dyspnea, Dyspnea on Exertion, Edema, Irregular Heart Rhythm, Pain Radiating to Arm/Neck/Jaw, Leg Edema, Leg Ulcers, Lightheadedness, Orthopnea, Palpitations, Paroxysmal Nocturnal Dyspnea, Pedal Edema, Radiating Pain, Rapid Heart Rate, Slow Heart Rate, Syncope, Other - Respiratory Respiratory: absent: Cough, Dyspnea, Hemoptysis, Dyspnea on Exertion, Wheezing, Snoring, Stridor, Pain on Inspiration, Chest Congestion, Excessive Mucous Production, Change in Mucous Color, Pain with Coughing, Other - Gastrointestinal Gastrointestinal: Abdominal Pain, Nausea, Vomiting - Musculoskeletal Musculoskeletal: absent: Abnormal Gait, Arthralgias, Atrophy, Back Pain, Deformity, Joint Swelling, Limited Range of Motion, Loss of Height, Muscle Cramps, Muscle Weakness, Myalgias, Neck Pain, Numbness, Radiating Pain into Limb , Stiffness, Tingling, Other - Neurological Neurological: absent: Abnormal Gait, Abnormal Hearing, Abnormal Movements, Abnormal Speech, Behavioral Changes, Burning Sensations, Confusion, Convulsions , Disequilibrium, Dizziness, Numbness, Focal Weakness, Frequent Falls, Headaches , Lack of Coordination, Loss of Vision, Memory Loss, Paresthesias, Radicular Pain, Restless Legs, Sensory Deficit, Syncope, Tingling, Tremor, Vertigo, Weakness, Other Visual Disturbances, Other Past Patient History - Infectious Disease Hx of Infectious Diseases: C.diff - Past Medical History & Family History Past Medical History?: Yes - Past Social History Smoking Status: Former Smoker - CARDIAC Hx Cardiac Disorders: Yes (HTN, high chol) - PULMONARY Hx Respiratory Disorders: Yes (asthma) - NEUROLOGICAL Hx Neurological Disorder: Yes (Diabetic neuropathy) - HEENT Hx HEENT Problems: No - RENAL Hx Chronic Kidney Disease: No - ENDOCRINE/METABOLIC Hx Endocrine Disorders: Yes (hypothyroid, DM) - HEMATOLOGICAL/ONCOLOGICAL Hx Blood Disorders: No Hx AIDS: No Hx Human Immunodeficiency Virus (HIV): No - INTEGUMENTARY Hx Dermatological Problems: Yes - MUSCULOSKELETAL/RHEUMATOLOGICAL Hx Musculoskeletal Disorders: Yes (arthritis) Hx Falls: No - GASTROINTESTINAL Hx Gastrointestinal Disorders: Yes Hx Gastritis: Yes - GENITOURINARY/GYNECOLOGICAL Hx Genitourinary Disorders: No - PSYCHIATRIC Hx Psychophysiologic Disorder: Yes (anxiety and depression) Hx Substance Use: No - SURGICAL HISTORY Hx Surgeries: Yes Hx Appendectomy: Yes Hx Cholecystectomy: Yes Hx Coronary Stent: Yes Hx Tonsillectomy: Yes - ANESTHESIA Hx Anesthesia: Yes Hx Anesthesia Reactions: No Hx Malignant Hyperthermia: No Meds Allergies/Adverse Reactions: Allergies Allergy/AdvReac Type Severity Reaction Status Date / Time Penicillins Allergy RASH Verified 10/05/16 13:07 lipitor AdvReac Intermediate RASH Uncoded 10/05/16 23:59 - Medications Medications: Current Medications Albuterol (Ventolin Hfa 90 Mcg/Actuation (8 G)) 2 puff IH Q4H PRN PRN Reason: Shortness of Breath Alprazolam (Xanax) 0.5 mg PO TID [facility] Last Admin: 08/31/17 16:24 Dose: 0.5 mg Atorvastatin Calcium (Lipitor) 20 mg PO HS [facility] Last Admin: 08/31/17 21:03 Dose: Not Given Citalopram Hydrobromide (Celexa) 40 mg PO DAILY [facility] Last Admin: 08/31/17 08:47 Dose: 40 mg Dextrose (Dextrose 50% Inj) 0 ml IV STAT PRN; Protocol PRN Reason: Hypoglycemia Protocol Dextrose (Glutose 15) 0 gm PO ONCE PRN; Protocol PRN Reason: Hypoglycemia Protocol Enoxaparin Sodium (Lovenox) 40 mg SC DAILY [facility] PRN Reason: Protocol Last Admin: 08/31/17 08:48 Dose: 40 mg Glucagon (Glucagen Diagnostic Kit) 0 mg IM STAT PRN; Protocol PRN Reason: Hypoglycemia Protocol Ciprofloxacin (Cipro 400mg/200ml Dsw) 400 mg in 200 mls @ 200 mls/hr IVPB Q12 [facility] PRN Reason: Protocol Last Admin: 08/31/17 20:15 Dose: 200 mls/hr Metronidazole (Flagyl 500mg/100ml Ns) 100 mls @ 100 mls/hr IVPB Q8 [facility] PRN Reason: Protocol Last Admin: 09/01/17 00:14 Dose: 100 mls/hr Potassium Chloride/Dextrose/Sod Cl (Potassium Chl 20 Meq In D5-Ns) 1,000 mls @ 85 mls/hr IV .[id number] [facility] Stop: 09/01/17 12:42 Last Admin: 09/01/17 02:15 Dose: Not Given Insulin Detemir (Levemir) 12 units SC HS [facility] Last Admin: 08/31/17 23:08 Dose: Not Given Insulin Human Lispro (Humalog) 0 units SC AC [facility] PRN Reason: Protocol Last Admin: 08/31/17 16:30 Dose: 6 units Insulin Human Lispro (Humalog) 2 units SC ACTID [facility] Last Admin: 08/31/17 16:30 Dose: Not Given Ketorolac Tromethamine (Toradol) 15 mg IVP Q6 PRN PRN Reason: Pain, moderate (4-7) Ketorolac Tromethamine (Toradol) 30 mg IVP Q6 PRN PRN Reason: Pain, severe (8-10) Last Admin: 08/31/17 14:06 Dose: 30 mg Levothyroxine Sodium (Synthroid) 50 mcg PO ACB [facility] Last Admin: 09/01/17 06:38 Dose: 50 mcg Lisinopril (Zestril) 10 mg PO DAILY [facility] Last Admin: 08/31/17 10:18 Dose: 10 mg Mirtazapine (Remeron) 15 mg PO HS [facility] Last Admin: 08/31/17 21:01 Dose: 15 mg Oxycodone HCl (Oxycodone Immediate Release Tab) 15 mg PO Q6 [facility] Last Admin: 09/01/17 04:08 Dose: 15 mg Quetiapine Fumarate (Seroquel) 300 mg PO HS [facility] Last Admin: 08/31/17 21:01 Dose: 300 mg Physical Exam - Constitutional Appears: Non-toxic, No Acute Distress - Head Exam Head Exam: NORMAL INSPECTION - Eye Exam Eye Exam: EOMI, Normal appearance - ENT Exam ENT Exam: Mucous Membranes Moist - Respiratory Exam Respiratory Exam: Clear to Auscultation Bilateral - Cardiovascular Exam Cardiovascular Exam: +S1, +S2 - GI/Abdominal Exam GI & Abdominal Exam: Normal Bowel Sounds, Soft, Tenderness Additional comments: epigastric tenderness to palpation no palpable hepato/splenomegaly - Extremities Exam Extremities exam: Positive for: normal inspection - Neurological Exam Neurological exam: Alert, CN II-XII Intact, Oriented x3, Reflexes Normal - Psychiatric Exam Psychiatric exam: Normal Affect, Normal Mood - Skin Skin Exam: Dry, Intact, Normal Color, Warm Results - Vital Signs Recent Vital Signs: Last Vital Signs Temp 98.2 F 09/01/17 01:00 Pulse 81 09/01/17 01:00 Resp 20 09/01/17 01:00 BP 156/68 H 09/01/17 01:00 Pulse Ox 98 09/01/17 01:00 - Labs Result Diagrams: 08/31/17 05:30 08/31/17 05:30 Labs: Laboratory Results - last 24 hr 08/31/17 08/31/17 08/31/17 05:30 05:30 10:27 WBC 9.0 RBC 3.01 L Hgb 9.7 L D Hct 28.6 L MCV 95.1 MCH 32.2 H MCHC 33.9 RDW 13.5 Plt Count 266 MPV 9.6 Neut % (Auto) 51.3 Lymph % (Auto) 38.1 [place] % (Auto) 8.2 Eos % (Auto) 2.0 Baso % (Auto) 0.4 Neut # (Auto) 4.6 Lymph # (Auto) 3.4 [place] # (Auto) 0.7 Eos # (Auto) 0.2 Baso # (Auto) 0.0 Sodium 139 Potassium 3.8 Chloride 108 H Carbon Dioxide 19 L Anion Gap 16 BUN 14 Creatinine 0.6 L Est GFR ( Amer) > 60 Est GFR (Non-Af Amer) > 60 POC Glucose (mg/dL) Random Glucose 140 H Calcium 8.2 L Total Bilirubin 0.4 AST 22 ALT 28 Alkaline Phosphatase 88 Total Protein 5.8 L Albumin 3.1 L D Globulin 2.7 Albumin/Globulin Ratio 1.1 Urine Color Yellow Urine Clarity Slighty-cloudy Urine pH 5.0 Ur Specific [place] 1.033 H Urine Protein >=500 Urine Glucose (UA) >=500 Urine Ketones 80 Urine Blood Negative Urine Nitrate Negative Urine Bilirubin Negative Urine Urobilinogen 0.2-1.0 Ur Leukocyte Esterase Neg Urine RBC (Auto) 3 Urine Microscopic WBC 2 Ur Squamous Epith Cells 2 08/31/17 08/31/17 08/31/17 11:45 15:38 22:13 WBC RBC Hgb Hct MCV MCH MCHC RDW Plt Count MPV Neut % (Auto) Lymph % (Auto) [place] % (Auto) Eos % (Auto) Baso % (Auto) Neut # (Auto) Lymph # (Auto) [place] # (Auto) Eos # (Auto) Baso # (Auto) Sodium Potassium Chloride Carbon Dioxide Anion Gap BUN Creatinine Est GFR ( Amer) Est GFR (Non-Af Amer) POC Glucose (mg/dL) 268 H 310 H 228 H Random Glucose Calcium Total Bilirubin AST ALT Alkaline Phosphatase Total Protein Albumin Globulin Albumin/Globulin Ratio Urine Color Urine Clarity Urine pH Ur Specific [place] Urine Protein Urine Glucose (UA) Urine Ketones Urine Blood Urine Nitrate Urine Bilirubin Urine Urobilinogen Ur Leukocyte Esterase Urine RBC (Auto) Urine Microscopic WBC Ur Squamous Epith Cells 09/01/17 06:31 WBC RBC Hgb Hct MCV MCH MCHC RDW Plt Count MPV Neut % (Auto) Lymph % (Auto) [place] % (Auto) Eos % (Auto) Baso % (Auto) Neut # (Auto) Lymph # (Auto) [place] # (Auto) Eos # (Auto) Baso # (Auto) Sodium Potassium Chloride Carbon Dioxide Anion Gap BUN Creatinine Est GFR ( Amer) Est GFR (Non-Af Amer) POC Glucose (mg/dL) 294 H Random Glucose Calcium Total Bilirubin AST ALT Alkaline Phosphatase Total Protein Albumin Globulin Albumin/Globulin Ratio Urine Color Urine Clarity Urine pH Ur Specific [place] Urine Protein Urine Glucose (UA) Urine Ketones Urine Blood Urine Nitrate Urine Bilirubin Urine Urobilinogen Ur Leukocyte Esterase Urine RBC (Auto) Urine Microscopic WBC Ur Squamous Epith Cells Assessment & Plan - Assessment and Plan (Free Text) Assessment: CAD s/p stent over 10 years ago DM - uncontrolled HTN Hypothyroidism Abdominal pain, vomiting CT imaging reviewed by me showing intestinal malrotation, diffuse colonic wall thickening Plan: - Clear liquid diet as tolerated - Continue with antibiotic therapy - Begin once daily PPI therapy - Patient requires optimized blood glucose control - Anti-emetic therapy PRN - Follow up blood culture results, obtain stool studies - Obtain c-difficile given prior history of c-difficile associated colitis - Will continue to monitor patient clinical course
[2017-09-01 07:19] LABS: BASO # 0.1 K/uL (0.0-0.2); BASO % 0.5 % (0.0-2.0); EOS % 0.4 % (0.0-4.0); HEMOGLOBIN 10.6 g/dL (12.0-16.0); LYMPH % 20.9 % (20.0-40.0); MEAN CELL VOLUME 96.9 fl (81.0-99.0); MEAN PLATELET VOLUME 9.9 fl (7.2-11.7); MONO # 0.8 K/uL (0.0-0.8); NEUT # 6.7 K/uL (1.8-7.0); NEUT % 70.2 % (50.0-75.0); RBC 3.31 Mil/uL (3.80-5.20); RED CELL DISTRIBUTION WIDTH 13.4 % (11.5-14.5); WHITE BLOOD COUNT 9.6 K/uL (4.8-10.8)
[2017-09-01] MEDS: Insulin Lispro (humaLOG) 100 Units/ml Inj SC SCH ×6 (07:26→16:50)
[2017-09-01 08:04] LABS: ALB/GLOB RATIO 1.2 (1.0-2.1); ALBUMIN 3.7 g/dL (3.5-5.0); ALT/SGPT 25 U/L (9-52); AST/SGOT 23 U/L (14-36); BLOOD UREA NITROGEN 9 mg/dl (7-17); CALCIUM 8.9 mg/dL (8.4-10.2); GFR AFRICAN-AMERICAN > 60; GFR NON-AFRICAN AMERICAN > 60
[2017-09-01] MEDS: Ciprofloxacin 400mg/200ml D5W 400 MG/200 ML BAG IVPB SCH ×2 (10:22→20:31)
[2017-09-01] MEDS: Enoxaparin 40 mg Syringe SC SCH (10:24)
[2017-09-01] MEDS: Dextrose 5%/0.9% NS 1,000 ML IV SCH ×2 (10:36→20:32)
[2017-09-01] MEDS: Pantoprazole 40 mg EC Tab PO SCH (10:48)
--- NOTE | 2017-09-01 11:13 | CP.PCM.PN ---
<Subhashmilind StevensJessica - Last Filed: 09/01/17 12:50> Subjective - Date & Time of Evaluation Date of Evaluation: 09/01/17 Time of Evaluation: 08:11 - Subjective Subjective: Patient seen and examined today at bedside, patient c/o nausea, vomiting and epigastric abdominal pain, Patient denies diarrhea this morning. Patient is NAD , denies chest pain, SOB, dizziness, palpitations or fever. Objective - Vital Signs/Intake and Output Vital Signs (last 24 hours): Temp Pulse Resp BP Pulse Ox 98.9 F 80 20 169/70 H 99 09/01/17 08:18 09/01/17 10:35 09/01/17 08:18 09/01/17 10:35 09/01/17 08:18 - Medications Medications: Current Medications Albuterol (Ventolin Hfa 90 Mcg/Actuation (8 G)) 2 puff IH Q4H PRN PRN Reason: Shortness of Breath Alprazolam (Xanax) 0.5 mg PO TID [facility] Last Admin: 09/01/17 10:34 Dose: 0.5 mg Atorvastatin Calcium (Lipitor) 20 mg PO HS [facility] Last Admin: 08/31/17 21:03 Dose: Not Given Citalopram Hydrobromide (Celexa) 40 mg PO DAILY [facility] Last Admin: 09/01/17 10:25 Dose: 40 mg Dextrose (Dextrose 50% Inj) 0 ml IV STAT PRN; Protocol PRN Reason: Hypoglycemia Protocol Dextrose (Glutose 15) 0 gm PO ONCE PRN; Protocol PRN Reason: Hypoglycemia Protocol Enoxaparin Sodium (Lovenox) 40 mg SC DAILY [facility] PRN Reason: Protocol Last Admin: 09/01/17 10:24 Dose: 40 mg Glucagon (Glucagen Diagnostic Kit) 0 mg IM STAT PRN; Protocol PRN Reason: Hypoglycemia Protocol Ciprofloxacin (Cipro 400mg/200ml Dsw) 400 mg in 200 mls @ 200 mls/hr IVPB Q12 [facility] PRN Reason: Protocol Last Admin: 09/01/17 10:22 Dose: 200 mls/hr Metronidazole (Flagyl 500mg/100ml Ns) 100 mls @ 100 mls/hr IVPB Q8 [facility] PRN Reason: Protocol Last Admin: 09/01/17 10:23 Dose: 100 mls/hr Dextrose/Sodium Chloride (Dextrose 5%/0.9% Ns 1000 Ml) 1,000 mls @ 100 mls/hr IV .Q10H [facility] Stop: 09/02/17 10:06 Last Admin: 09/01/17 10:36 Dose: 100 mls/hr Insulin Detemir (Levemir) 12 units SC HS [facility] Last Admin: 08/31/17 23:08 Dose: Not Given Insulin Human Lispro (Humalog) 0 units SC AC [facility] PRN Reason: Protocol Last Admin: 09/01/17 07:26 Dose: 4 units Insulin Human Lispro (Humalog) 2 units SC ACTID [facility] Last Admin: 09/01/17 07:27 Dose: 2 units Ketorolac Tromethamine (Toradol) 15 mg IVP Q6 PRN PRN Reason: Pain, moderate (4-7) Ketorolac Tromethamine (Toradol) 30 mg IVP Q6 PRN PRN Reason: Pain, severe (8-10) Last Admin: 08/31/17 14:06 Dose: 30 mg Levothyroxine Sodium (Synthroid) 50 mcg PO ACB [facility] Last Admin: 09/01/17 06:38 Dose: 50 mcg Lisinopril (Zestril) 10 mg PO DAILY [facility] Last Admin: 09/01/17 10:35 Dose: 10 mg Metoclopramide HCl (Reglan) 10 mg IVP Q6 PRN PRN Reason: Nausea/Vomiting Mirtazapine (Remeron) 15 mg PO HS [facility] Last Admin: 08/31/17 21:01 Dose: 15 mg Oxycodone HCl (Oxycodone Immediate Release Tab) 15 mg PO Q6 [facility] Last Admin: 09/01/17 10:34 Dose: 15 mg Pantoprazole Sodium (Protonix Ec Tab) 40 mg PO DAILY [facility] Quetiapine Fumarate (Seroquel) 300 mg PO HS [facility] Last Admin: 08/31/17 21:01 Dose: 300 mg - Labs Labs: 09/01/17 05:30 09/01/17 05:30 PT 9.1 Seconds (9.8-13.1) L 08/30/17 15:00 INR 0.8 (0.9-1.2) L 08/30/17 15:00 APTT 20.2 Seconds (25.6-37.1) L 08/30/17 15:00 - Constitutional Appears: No Acute Distress - Head Exam Head Exam: NORMOCEPHALIC - Eye Exam Eye Exam: EOMI, PERRL - ENT Exam ENT Exam: Mucous Membranes Moist - Neck Exam Neck Exam: Normal Inspection - Respiratory Exam Respiratory Exam: Clear to Ausculation Bilateral. absent: Rales, Rhonchi, Wheezes - Cardiovascular Exam Cardiovascular Exam: REGULAR RHYTHM, +S1, +S2. absent: JVD - GI/Abdominal Exam GI & Abdominal Exam: Soft, Tenderness (moderate tenderness to light palpation to epigastrium), Hypoactive Bowel Sounds - Extremities Exam Extremities Exam: Normal Inspection. absent: Pedal Edema - Neurological Exam Neurological Exam: Alert, Awake, Oriented x3 - Psychiatric Exam Psychiatric exam: Anxious - Skin Skin Exam: Normal Color, Warm. absent: Pallor Assessment and Plan - Assessment and Plan (Free Text) Assessment: Patient today continues c/o abdominal pain but states it has improved compared to yesterday, c/o nausea and vomiting, patient is found vomiting during the round, will change zofran to reglan Q6h Iv as needed for nausea and vomiting. Plan: Abdominal pain/Nausea/ Vomiting -Possibly caused by gastroparesis, patient has IDDM type 2 -Will start Reglan 10 mg IV Q6h PRN for nausea/vomiting - IVF D5NS 100ml/hr - continue to optimize BS. - Epigastric, similar to colitis episodes in the past - Afebrile, WBC wnl. - CT abdomen/pelvis w/ PO and IV contrast: reviewed, see full report - will f/u stool c diff test and evaluate to start PPI - C/w ciprofloxacin 400 mg IV Q12h - C/w metronidazole 500 mg IV Q8h - GI, Dr. Allerd Consult, will follow recommendations - Will advance to Clear Liqs diet as tolerated Hyperglycemia - IDDM Type 2 - glucose 289 - HgbA1c: 13.1 (05/2017) - Insulin Levemir 12 units SC HS - Insulin lispro 2 units SQ AC and ACTID - Insulin Correction Scale SC ACHS - hypoglycemia protocol Hypothyroidism - C/w Home medication, levothyroxine 50 mcg PO daily HTN - C/w home meds; lisinopril 10 mg PO daily Hx of Major Depression - home medications: citalopram 40 mg PO daily - Seroquel:300 mg QD at night Chronic pain - oxycodone 15 mg PO Q6h prn - patient follows up with Dr. Colindres for pain management Prophylactic measures - DVT: Lovenox 40 mg SC daily <Any Hernandes - Last Filed: 09/02/17 08:13> Objective - Vital Signs/Intake and Output Vital Signs (last 24 hours): Temp Pulse Resp BP Pulse Ox 98.5 F 88 19 129/77 98 09/02/17 07:55 09/02/17 07:55 09/02/17 07:55 09/02/17 07:55 09/02/17 07:55 - Medications Medications: Current Medications Albuterol (Ventolin Hfa 90 Mcg/Actuation (8 G)) 2 puff IH Q4H PRN PRN Reason: Shortness of Breath Alprazolam (Xanax) 0.5 mg PO TID [facility] Last Admin: 09/01/17 16:47 Dose: 0.5 mg Atorvastatin Calcium (Lipitor) 20 mg PO HS [facility] Last Admin: 09/01/17 21:24 Dose: 20 mg Citalopram Hydrobromide (Celexa) 40 mg PO DAILY [facility] Last Admin: 09/01/17 10:25 Dose: 40 mg Dextrose (Dextrose 50% Inj) 0 ml IV STAT PRN; Protocol PRN Reason: Hypoglycemia Protocol Dextrose (Glutose 15) 0 gm PO ONCE PRN; Protocol PRN Reason: Hypoglycemia Protocol Enoxaparin Sodium (Lovenox) 40 mg SC DAILY [facility] PRN Reason: Protocol Last Admin: 09/01/17 10:24 Dose: 40 mg Glucagon (Glucagen Diagnostic Kit) 0 mg IM STAT PRN; Protocol PRN Reason: Hypoglycemia Protocol Ciprofloxacin (Cipro 400mg/200ml Dsw) 400 mg in 200 mls @ 200 mls/hr IVPB Q12 [facility] PRN Reason: Protocol Last Admin: 09/01/17 20:31 Dose: 200 mls/hr Metronidazole (Flagyl 500mg/100ml Ns) 100 mls @ 100 mls/hr IVPB Q8 [facility] PRN Reason: Protocol Last Admin: 09/02/17 00:28 Dose: 100 mls/hr Dextrose/Sodium Chloride (Dextrose 5%/0.9% Ns 1000 Ml) 1,000 mls @ 100 mls/hr IV .Q10H [facility] Stop: 09/02/17 10:06 Last Admin: 09/02/17 04:15 Dose: 100 mls/hr Insulin Detemir (Levemir) 12 units SC HS [facility] Last Admin: 09/01/17 22:58 Dose: 12 units Insulin Human Lispro (Humalog) 0 units SC AC [facility] PRN Reason: Protocol Last Admin: 09/01/17 16:50 Dose: Not Given Insulin Human Lispro (Humalog) 2 units SC ACTID [facility] Last Admin: 09/01/17 16:50 Dose: 2 units Ketorolac Tromethamine (Toradol) 15 mg IVP Q6 PRN PRN Reason: Pain, moderate (4-7) Ketorolac Tromethamine (Toradol) 30 mg IVP Q6 PRN PRN Reason: Pain, severe (8-10) Last Admin: 08/31/17 14:06 Dose: 30 mg Levothyroxine Sodium (Synthroid) 50 mcg PO ACB [facility] Last Admin: 09/02/17 06:30 Dose: 50 mcg Lisinopril (Zestril) 10 mg PO DAILY [facility] Last Admin: 09/01/17 10:35 Dose: 10 mg Metoclopramide HCl (Reglan) 10 mg IVP Q6 PRN PRN Reason: Nausea/Vomiting Last Admin: 09/01/17 18:19 Dose: 10 mg Mirtazapine (Remeron) 15 mg PO HS [facility] Last Admin: 09/01/17 21:25 Dose: 15 mg Oxycodone HCl (Oxycodone Immediate Release Tab) 15 mg PO Q6 [facility] Last Admin: 09/02/17 03:54 Dose: 15 mg Pantoprazole Sodium (Protonix Ec Tab) 40 mg PO DAILY [facility] Last Admin: 09/01/17 10:48 Dose: 40 mg Quetiapine Fumarate (Seroquel) 300 mg PO HS [facility] Last Admin: 09/01/17 21:25 Dose: 300 mg - Labs Labs: 09/02/17 05:25 09/02/17 05:25 PT 9.1 Seconds (9.8-13.1) L 08/30/17 15:00 INR 0.8 (0.9-1.2) L 08/30/17 15:00 APTT 20.2 Seconds (25.6-37.1) L 08/30/17 15:00 Attending/Attestation - Attestation I have personally seen and examined this patient.: Yes I have fully participated in the care of the patient.: Yes I have reviewed all pertinent clinical information, including history, physical exam and plan: Yes
[2017-09-01] MEDS: Insulin Detemir 100 Units/ml Inj SC SCH (22:58)
[2017-09-02] MEDS: metroNIDAZOLE 500mg/100ml NS 100 ML IVPB SCH ×2 (00:28→11:07)
[2017-09-02] MEDS: oxyCODONE 5 mg Immediate Release Tab PO SCH ×2 (03:54→11:12)
[2017-09-02] MEDS: Dextrose 5%/0.9% NS 1,000 ML IV SCH (04:15)
[2017-09-02 06:28] LABS: HEMOGLOBIN 10.7 g/dL (12.0-16.0); MEAN CELL VOLUME 94.5 fl (81.0-99.0); MEAN CORPUSCULAR HEMOGLOBIN 32.1 pg (27.0-31.0); MEAN CORPUSCULAR HGB CONC 33.9 g/dL (33.0-37.0); RBC 3.33 Mil/uL (3.80-5.20); RED CELL DISTRIBUTION WIDTH 13.3 % (11.5-14.5); WHITE BLOOD COUNT 7.5 K/uL (4.8-10.8)
[2017-09-02] MEDS: Levothyroxine 50 MCG TAB PO SCH (06:30)
[2017-09-02 07:01] LABS: ALB/GLOB RATIO 0.9 (1.0-2.1); ALBUMIN 2.9 g/dL (3.5-5.0); ALT/SGPT 24 U/L (9-52); AST/SGOT 22 U/L (14-36); BLOOD UREA NITROGEN 9 mg/dl (7-17); CALCIUM 8.3 mg/dL (8.4-10.2); GFR AFRICAN-AMERICAN > 60; GFR NON-AFRICAN AMERICAN > 60
--- NOTE | 2017-09-02 07:05 | CP.PCM.PN ---
<Mark Leavitt - Last Filed: 09/02/17 13:05> Subjective - Date & Time of Evaluation Date of Evaluation: 09/02/17 Time of Evaluation: 06:45 - Subjective Subjective: PGY5 GI Follow-up Pt seen and examined bedside Denies any additional diarrhea/nausea/or vomiting Tolerating liquids loose BM x1 overnight, liquid, denies any blood still has epigastric pain but improved ROS: 12 point ROS conducted, neg other than above Objective - Vital Signs/Intake and Output Vital Signs (last 24 hours): Temp Pulse Resp BP Pulse Ox 97.6 F 99 H 20 121/74 96 09/01/17 23:50 09/01/17 23:50 09/01/17 23:50 09/01/17 23:50 09/01/17 23:50 - Medications Medications: Current Medications Albuterol (Ventolin Hfa 90 Mcg/Actuation (8 G)) 2 puff IH Q4H PRN PRN Reason: Shortness of Breath Alprazolam (Xanax) 0.5 mg PO TID [facility] Last Admin: 09/01/17 16:47 Dose: 0.5 mg Atorvastatin Calcium (Lipitor) 20 mg PO HS [facility] Last Admin: 09/01/17 21:24 Dose: 20 mg Citalopram Hydrobromide (Celexa) 40 mg PO DAILY [facility] Last Admin: 09/01/17 10:25 Dose: 40 mg Dextrose (Dextrose 50% Inj) 0 ml IV STAT PRN; Protocol PRN Reason: Hypoglycemia Protocol Dextrose (Glutose 15) 0 gm PO ONCE PRN; Protocol PRN Reason: Hypoglycemia Protocol Enoxaparin Sodium (Lovenox) 40 mg SC DAILY [facility] PRN Reason: Protocol Last Admin: 09/01/17 10:24 Dose: 40 mg Glucagon (Glucagen Diagnostic Kit) 0 mg IM STAT PRN; Protocol PRN Reason: Hypoglycemia Protocol Ciprofloxacin (Cipro 400mg/200ml Dsw) 400 mg in 200 mls @ 200 mls/hr IVPB Q12 [facility] PRN Reason: Protocol Last Admin: 09/01/17 20:31 Dose: 200 mls/hr Metronidazole (Flagyl 500mg/100ml Ns) 100 mls @ 100 mls/hr IVPB Q8 [facility] PRN Reason: Protocol Last Admin: 09/02/17 00:28 Dose: 100 mls/hr Dextrose/Sodium Chloride (Dextrose 5%/0.9% Ns 1000 Ml) 1,000 mls @ 100 mls/hr IV .Q10H [facility] Stop: 09/02/17 10:06 Last Admin: 09/02/17 04:15 Dose: 100 mls/hr Insulin Detemir (Levemir) 12 units SC HS [facility] Last Admin: 09/01/17 22:58 Dose: 12 units Insulin Human Lispro (Humalog) 0 units SC AC [facility] PRN Reason: Protocol Last Admin: 09/01/17 16:50 Dose: Not Given Insulin Human Lispro (Humalog) 2 units SC ACTID [facility] Last Admin: 09/01/17 16:50 Dose: 2 units Ketorolac Tromethamine (Toradol) 15 mg IVP Q6 PRN PRN Reason: Pain, moderate (4-7) Ketorolac Tromethamine (Toradol) 30 mg IVP Q6 PRN PRN Reason: Pain, severe (8-10) Last Admin: 08/31/17 14:06 Dose: 30 mg Levothyroxine Sodium (Synthroid) 50 mcg PO ACB [facility] Last Admin: 09/02/17 06:30 Dose: 50 mcg Lisinopril (Zestril) 10 mg PO DAILY [facility] Last Admin: 09/01/17 10:35 Dose: 10 mg Metoclopramide HCl (Reglan) 10 mg IVP Q6 PRN PRN Reason: Nausea/Vomiting Last Admin: 09/01/17 18:19 Dose: 10 mg Mirtazapine (Remeron) 15 mg PO HS [facility] Last Admin: 09/01/17 21:25 Dose: 15 mg Oxycodone HCl (Oxycodone Immediate Release Tab) 15 mg PO Q6 [facility] Last Admin: 09/02/17 03:54 Dose: 15 mg Pantoprazole Sodium (Protonix Ec Tab) 40 mg PO DAILY [facility] Last Admin: 09/01/17 10:48 Dose: 40 mg Quetiapine Fumarate (Seroquel) 300 mg PO HS [facility] Last Admin: 09/01/17 21:25 Dose: 300 mg - Labs Labs: 09/02/17 05:25 09/02/17 05:25 PT 9.1 Seconds (9.8-13.1) L 08/30/17 15:00 INR 0.8 (0.9-1.2) L 08/30/17 15:00 APTT 20.2 Seconds (25.6-37.1) L 08/30/17 15:00 - Constitutional Appears: Well, No Acute Distress - Head Exam Head Exam: ATRAUMATIC, NORMOCEPHALIC - Eye Exam Eye Exam: Normal appearance - ENT Exam ENT Exam: Mucous Membranes Moist - Neck Exam Neck Exam: Normal Inspection - Respiratory Exam Respiratory Exam: Clear to Ausculation Bilateral, NORMAL BREATHING PATTERN. absent: Rales, Rhonchi, Wheezes, Respiratory Distress - Cardiovascular Exam Cardiovascular Exam: REGULAR RHYTHM, +S1, +S2 - GI/Abdominal Exam GI & Abdominal Exam: Soft, Tenderness (epigastric), Normal Bowel Sounds. absent : Distended, Firm, Guarding, Rigid, Organomegaly - Extremities Exam Extremities Exam: absent: Joint Swelling, Pedal Edema - Neurological Exam Neurological Exam: Alert, Awake, Oriented x3 - Skin Skin Exam: Dry, Intact, Normal Color, Warm Assessment and Plan - Assessment and Plan (Free Text) Assessment: Jo Ann Bledsoe is a 56F w/ hx of CAD, hypothyroidism, uncontrolled DM (insulin dependent), HTN, colitis eho presented to the ER with epigastric pain. nausea, vomiting, and diarrhea. 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 Mild roche-colitis Epigastric pain/ nausea/vomiting; etiology likely 2/2 gastroparesis; DDx; infectous etiologies Gastroparesis likely 2/2 uncontrolled DM CAD s/p stent over 10 years ago DM - uncontrolled HTN Hypothyroidism Plan: -will need a stool sample to r/o infectous etiology; r/o c.diff -can continue cipro and flagyl for now, if c.diff neg; would d/c abx as pt diarrhea is improving and afebrile -advance diet to soft, low residue; small 6 meals -talked extensively about proper management of sugars -will need to f/u w/ endocrine -recent endo and colon in 2017 -no need for repeat endoscopic procedure at this time -if c.diff +, would d/c PPI and place on H2 chun D/w Dr. Allred <Des Allred - Last Filed: 09/02/17 13:09> Objective - Vital Signs/Intake and Output Vital Signs (last 24 hours): Temp Pulse Resp BP Pulse Ox 98.5 F 88 19 129/77 98 09/02/17 07:55 09/02/17 11:01 09/02/17 07:55 09/02/17 11:01 09/02/17 07:55 - Medications Medications: Current Medications Albuterol (Ventolin Hfa 90 Mcg/Actuation (8 G)) 2 puff IH Q4H PRN PRN Reason: Shortness of Breath Alprazolam (Xanax) 0.5 mg PO TID [facility] Last Admin: 09/02/17 11:13 Dose: 0.5 mg Atorvastatin Calcium (Lipitor) 20 mg PO HS [facility] Last Admin: 09/01/17 21:24 Dose: 20 mg Citalopram Hydrobromide (Celexa) 40 mg PO DAILY [facility] Last Admin: 09/02/17 11:00 Dose: 40 mg Dextrose (Dextrose 50% Inj) 0 ml IV STAT PRN; Protocol PRN Reason: Hypoglycemia Protocol Dextrose (Glutose 15) 0 gm PO ONCE PRN; Protocol PRN Reason: Hypoglycemia Protocol Enoxaparin Sodium (Lovenox) 40 mg SC DAILY [facility] PRN Reason: Protocol Last Admin: 09/02/17 11:00 Dose: 40 mg Glucagon (Glucagen Diagnostic Kit) 0 mg IM STAT PRN; Protocol PRN Reason: Hypoglycemia Protocol Ciprofloxacin (Cipro 400mg/200ml Dsw) 400 mg in 200 mls @ 200 mls/hr IVPB Q12 [facility] PRN Reason: Protocol Last Admin: 09/02/17 11:09 Dose: 200 mls/hr Metronidazole (Flagyl 500mg/100ml Ns) 100 mls @ 100 mls/hr IVPB Q8 [facility] PRN Reason: Protocol Last Admin: 09/02/17 11:07 Dose: 100 mls/hr Insulin Detemir (Levemir) 12 units SC HS [facility] Last Admin: 09/01/17 22:58 Dose: 12 units Insulin Human Lispro (Humalog) 0 units SC AC [facility] PRN Reason: Protocol Last Admin: 09/02/17 11:15 Dose: Not Given Insulin Human Lispro (Humalog) 2 units SC ACTID [facility] Last Admin: 09/02/17 11:15 Dose: Not Given Ketorolac Tromethamine (Toradol) 15 mg IVP Q6 PRN PRN Reason: Pain, moderate (4-7) Ketorolac Tromethamine (Toradol) 30 mg IVP Q6 PRN PRN Reason: Pain, severe (8-10) Last Admin: 08/31/17 14:06 Dose: 30 mg Levothyroxine Sodium (Synthroid) 50 mcg PO ACB [facility] Last Admin: 09/02/17 06:30 Dose: 50 mcg Lisinopril (Zestril) 10 mg PO DAILY [facility] Last Admin: 09/02/17 11:01 Dose: 10 mg Metoclopramide HCl (Reglan) 10 mg PO ACHS [facility] Last Admin: 09/02/17 11:18 Dose: 10 mg Mirtazapine (Remeron) 15 mg PO HS [facility] Last Admin: 09/01/17 21:25 Dose: 15 mg Oxycodone HCl (Oxycodone Immediate Release Tab) 15 mg PO Q6 [facility] Last Admin: 09/02/17 11:12 Dose: 15 mg Pantoprazole Sodium (Protonix Ec Tab) 40 mg PO DAILY [facility] Last Admin: 09/02/17 11:01 Dose: 40 mg Quetiapine Fumarate (Seroquel) 300 mg PO HS [facility] Last Admin: 09/01/17 21:25 Dose: 300 mg - Labs Labs: 09/02/17 05:25 09/02/17 05:25 PT 9.1 Seconds (9.8-13.1) L 08/30/17 15:00 INR 0.8 (0.9-1.2) L 08/30/17 15:00 APTT 20.2 Seconds (25.6-37.1) L 08/30/17 15:00 Attending/Attestation - Attestation I have personally seen and examined this patient.: Yes I have fully participated in the care of the patient.: Yes I have reviewed all pertinent clinical information, including history, physical exam and plan: Yes Notes (Text): 09/02/17 13:07 Patient seen with Gi fellow. This is a 56 yr old F with history of CAD, hypothyroidism, uncontrolled DM (insulin dependent), HTN, colitis who presented to the ER with epigastric pain, nausea, vomiting, and likely overflow diarrhea in setting of gastroparesis now resolving. Seen at bedside with benign physical exam and able to tolerated solid food. Stool infectious work up pending. On antibiotics. Strict glycemic control. Small frequent meals low in fiber and fat. Continue PPI. Can follow as outpatient.
[2017-09-02] MEDS: Insulin Lispro (humaLOG) 100 Units/ml Inj SC SCH ×4 (07:30→11:15)
--- NOTE | 2017-09-02 08:42 | CP.PCM.PN ---
Subjective - Date & Time of Evaluation Date of Evaluation: 09/02/17 Time of Evaluation: 07:55 - Subjective Subjective: Patient seen and examined today at bedside, patient states feeling better today and denies nausea or vomiting today, she says last time felt nauseas was yesterday at 8PM, patient today c/o epigastric abdominal pain with only mild improvement from yesterday, denies any diarrhea this morning. Patient is NAD, denies chest pain, SOB, dizziness, palpitations or RAMIREZ this morning. Objective - Vital Signs/Intake and Output Vital Signs (last 24 hours): Temp Pulse Resp BP Pulse Ox 98.5 F 88 19 129/77 98 09/02/17 07:55 09/02/17 07:55 09/02/17 07:55 09/02/17 07:55 09/02/17 07:55 - Medications Medications: Current Medications Albuterol (Ventolin Hfa 90 Mcg/Actuation (8 G)) 2 puff IH Q4H PRN PRN Reason: Shortness of Breath Alprazolam (Xanax) 0.5 mg PO TID [facility] Last Admin: 09/01/17 16:47 Dose: 0.5 mg Atorvastatin Calcium (Lipitor) 20 mg PO HS [facility] Last Admin: 09/01/17 21:24 Dose: 20 mg Citalopram Hydrobromide (Celexa) 40 mg PO DAILY [facility] Last Admin: 09/01/17 10:25 Dose: 40 mg Dextrose (Dextrose 50% Inj) 0 ml IV STAT PRN; Protocol PRN Reason: Hypoglycemia Protocol Dextrose (Glutose 15) 0 gm PO ONCE PRN; Protocol PRN Reason: Hypoglycemia Protocol Enoxaparin Sodium (Lovenox) 40 mg SC DAILY [facility] PRN Reason: Protocol Last Admin: 09/01/17 10:24 Dose: 40 mg Glucagon (Glucagen Diagnostic Kit) 0 mg IM STAT PRN; Protocol PRN Reason: Hypoglycemia Protocol Ciprofloxacin (Cipro 400mg/200ml Dsw) 400 mg in 200 mls @ 200 mls/hr IVPB Q12 [facility] PRN Reason: Protocol Last Admin: 09/01/17 20:31 Dose: 200 mls/hr Metronidazole (Flagyl 500mg/100ml Ns) 100 mls @ 100 mls/hr IVPB Q8 [facility] PRN Reason: Protocol Last Admin: 09/02/17 00:28 Dose: 100 mls/hr Dextrose/Sodium Chloride (Dextrose 5%/0.9% Ns 1000 Ml) 1,000 mls @ 100 mls/hr IV .Q10H [facility] Stop: 09/02/17 10:06 Last Admin: 09/02/17 04:15 Dose: 100 mls/hr Insulin Detemir (Levemir) 12 units SC HS [facility] Last Admin: 09/01/17 22:58 Dose: 12 units Insulin Human Lispro (Humalog) 0 units SC AC [facility] PRN Reason: Protocol Last Admin: 09/01/17 16:50 Dose: Not Given Insulin Human Lispro (Humalog) 2 units SC ACTID [facility] Last Admin: 09/01/17 16:50 Dose: 2 units Ketorolac Tromethamine (Toradol) 15 mg IVP Q6 PRN PRN Reason: Pain, moderate (4-7) Ketorolac Tromethamine (Toradol) 30 mg IVP Q6 PRN PRN Reason: Pain, severe (8-10) Last Admin: 08/31/17 14:06 Dose: 30 mg Levothyroxine Sodium (Synthroid) 50 mcg PO ACB [facility] Last Admin: 09/02/17 06:30 Dose: 50 mcg Lisinopril (Zestril) 10 mg PO DAILY [facility] Last Admin: 09/01/17 10:35 Dose: 10 mg Metoclopramide HCl (Reglan) 10 mg IVP Q6 PRN PRN Reason: Nausea/Vomiting Last Admin: 09/01/17 18:19 Dose: 10 mg Mirtazapine (Remeron) 15 mg PO HS [facility] Last Admin: 09/01/17 21:25 Dose: 15 mg Oxycodone HCl (Oxycodone Immediate Release Tab) 15 mg PO Q6 [facility] Last Admin: 09/02/17 03:54 Dose: 15 mg Pantoprazole Sodium (Protonix Ec Tab) 40 mg PO DAILY [facility] Last Admin: 09/01/17 10:48 Dose: 40 mg Quetiapine Fumarate (Seroquel) 300 mg PO HS [facility] Last Admin: 09/01/17 21:25 Dose: 300 mg - Labs Labs: 09/02/17 05:25 09/02/17 05:25 PT 9.1 Seconds (9.8-13.1) L 08/30/17 15:00 INR 0.8 (0.9-1.2) L 08/30/17 15:00 APTT 20.2 Seconds (25.6-37.1) L 08/30/17 15:00 - Constitutional Appears: Well, No Acute Distress - Head Exam Head Exam: NORMOCEPHALIC - Eye Exam Eye Exam: EOMI, PERRL - ENT Exam ENT Exam: Mucous Membranes Moist - Respiratory Exam Respiratory Exam: Clear to Ausculation Bilateral - Cardiovascular Exam Cardiovascular Exam: REGULAR RHYTHM, +S1, +S2 - GI/Abdominal Exam GI & Abdominal Exam: Soft, Tenderness (moderate tenderness to palpation of epigastric area with diffuse mild tenderness to palpation of the rest of the abdomen), Diminished Bowel Sounds - Extremities Exam Extremities Exam: Normal Inspection. absent: Pedal Edema - Neurological Exam Neurological Exam: Alert, Awake, Oriented x3 - Psychiatric Exam Psychiatric exam: Normal Mood - Skin Skin Exam: Dry, Normal Color, Warm Assessment and Plan - Assessment and Plan (Free Text) Assessment: Patient today continues c/o abdominal pain with only mild improvement from yesterday, patient was started on PPI. Nursing notes reviewed. Plan: Abdominal pain/Nausea/ Vomiting -Possibly caused by gastroparesis, patient has IDDM type 2 -will c/w Reglan 10 mg PO Q6h PRN for nausea/vomiting -Nausea and vomiting resolved at this point -c/w advancing diet as tolerated - continue to optimize BS. - Epigastric pain, similar to colitis episodes in the past - Afebrile, WBC wnl. - CT abdomen/pelvis w/ PO and IV contrast: reviewed, see full report - C/w ciprofloxacin 400 mg IV Q12h - C/w metronidazole 500 mg IV Q8h - Protonix 40mg PO QD - F/u C diff toxin test Hyperglycemia - IDDM Type 2 - glucose 123 - HgbA1c: 13.1 (05/2017) - Insulin Levemir 12 units SC HS - Insulin lispro 4 units SQ AC and ACTID - Insulin Correction Scale SC ACHS - hypoglycemia protocol Hypothyroidism - C/w Home medication, levothyroxine 50 mcg PO daily HTN - C/w home meds; lisinopril 10 mg PO daily Hx of Major Depression - home medications: citalopram 40 mg PO daily - Seroquel:300 mg QD at night Chronic pain - oxycodone 15 mg PO Q6h prn - patient follows up with Dr. Colindres for pain management Prophylactic measures - DVT: Lovenox 40 mg SC daily
[2017-09-02] MEDS: Enoxaparin 40 mg Syringe SC SCH (11:00)
[2017-09-02] MEDS: Pantoprazole 40 mg EC Tab PO SCH (11:01)
[2017-09-02] MEDS: Ciprofloxacin 400mg/200ml D5W 400 MG/200 ML BAG IVPB SCH (11:09)
[2017-09-02 15:53] VITALS: BP 121/67; PULSE 82; RESP 20; TEMP 98; O2SAT 97
--- NOTE | 2017-09-02 17:02 | CP.PCM.DIS ---
Provider - Provider Date of Admission: 08/30/17 18:44 Attending physician: Claudia Baker MD Time Spent in preparation of Discharge (in minutes): 35 Diagnosis - Discharge Diagnosis (1) Gastroparesis due to DM Status: Acute Hospital Course - Lab Results Lab Results: Micro Results 08/30/17 15:00 Blood Blood Culture - Preliminary NO GROWTH AFTER 3 DAYS Most Recent Lab Values WBC 7.5 K/uL (4.8-10.8) 09/02/17 05:25 RBC 3.33 Mil/uL (3.80-5.20) L 09/02/17 05:25 Hgb 10.7 g/dL (12.0-16.0) L 09/02/17 05:25 Hct 31.5 % (34.0-47.0) L 09/02/17 05:25 MCV 94.5 fl (81.0-99.0) D 09/02/17 05:25 MCH 32.1 pg (27.0-31.0) H 09/02/17 05:25 MCHC 33.9 g/dL (33.0-37.0) 09/02/17 05:25 RDW 13.3 % (11.5-14.5) 09/02/17 05:25 Plt Count 234 K/uL (130-400) 09/02/17 05:25 MPV 9.9 fl (7.2-11.7) 09/01/17 05:30 Neut % (Auto) 70.2 % (50.0-75.0) 09/01/17 05:30 Lymph % (Auto) 20.9 % (20.0-40.0) 09/01/17 05:30 Butler % (Auto) 8.0 % (0.0-10.0) 09/01/17 05:30 Eos % (Auto) 0.4 % (0.0-4.0) 09/01/17 05:30 Baso % (Auto) 0.5 % (0.0-2.0) 09/01/17 05:30 Neut # (Auto) 6.7 K/uL (1.8-7.0) 09/01/17 05:30 Lymph # (Auto) 2.0 K/uL (1.0-4.3) 09/01/17 05:30 Butler # (Auto) 0.8 K/uL (0.0-0.8) 09/01/17 05:30 Eos # (Auto) 0.0 K/uL (0.0-0.7) 09/01/17 05:30 Baso # (Auto) 0.1 K/uL (0.0-0.2) 09/01/17 05:30 PT 9.1 Seconds (9.8-13.1) L 08/30/17 15:00 INR 0.8 (0.9-1.2) L 08/30/17 15:00 APTT 20.2 Seconds (25.6-37.1) L 08/30/17 15:00 pO2 32 mm/Hg (30-55) 08/30/17 15:17 VBG pH 7.52 (7.32-7.43) H 08/30/17 15:17 VBG pCO2 30 mmHg (40-60) L 08/30/17 15:17 VBG HCO3 26.1 mmol/L 08/30/17 15:17 VBG Total CO2 25.4 mmol/L (22-28) 08/30/17 15:17 VBG O2 Sat (Calc) 75.8 % (40-65) H 08/30/17 15:17 VBG Base Excess 2.4 mmol/L (0.0-2.0) H 08/30/17 15:17 VBG Potassium 4.4 mmol/L (3.6-5.2) 08/30/17 15:17 Sodium 135.0 mmol/L (132-148) 08/30/17 15:17 Chloride 101.0 mmol/L (98-107) 08/30/17 15:17 Glucose 570 mg/dL (65-105) H* 08/30/17 15:17 Lactate 1.9 mmol/L (0.7-2.1) 08/30/17 15:17 FiO2 21.0 % 08/30/17 15:17 Crit Value Called To vance Green md 08/30/17 15:17 Crit Value Called By Keeley carpenter 08/30/17 15:17 Crit Value Read Back Y 08/30/17 15:17 Blood Gas Notified Time 1527 08/30/17 15:17 Sodium 138 mmol/l (132-148) 09/02/17 05:25 Potassium 3.8 MMOL/L (3.6-5.0) 09/02/17 05:25 Chloride 112 mmol/L (98-107) H 09/02/17 05:25 Carbon Dioxide 17 mmol/L (22-30) L 09/02/17 05:25 Anion Gap 13 (10-20) 09/02/17 05:25 BUN 9 mg/dl (7-17) 09/02/17 05:25 Creatinine 0.9 mg/dl (0.7-1.2) 09/02/17 05:25 Est GFR ( Amer) > 60 09/02/17 05:25 Est GFR (Non-Af Amer) > 60 09/02/17 05:25 POC Glucose (mg/dL) 164 mg/dL (65-110) H 09/02/17 15:34 Random Glucose 122 mg/dL (65-105) H 09/02/17 05:25 Hemoglobin A1c 10.9 % (4.2-6.5) H 09/02/17 10:21 Calcium 8.3 mg/dL (8.4-10.2) L 09/02/17 05:25 Phosphorus 3.5 mg/dl (2.5-4.5) 08/30/17 15:00 Magnesium 2.5 MG/DL (1.6-2.3) H 08/30/17 15:00 Total Bilirubin 0.4 mg/dl (0.2-1.3) 09/02/17 05:25 AST 22 U/L (14-36) 09/02/17 05:25 ALT 24 U/L (9-52) 09/02/17 05:25 Alkaline Phosphatase 80 U/L (38-126) 09/02/17 05:25 Troponin I < 0.0120 ng/mL (0.00-0.120) 08/30/17 15:00 Total Protein 6.1 G/DL (6.3-8.2) L 09/02/17 05:25 Albumin 2.9 g/dL (3.5-5.0) L D 09/02/17 05:25 Globulin 3.2 gm/dL (2.2-3.9) 09/02/17 05:25 Albumin/Globulin Ratio 0.9 (1.0-2.1) L 09/02/17 05:25 Lipase 110 U/L (23-300) 08/30/17 15:00 Venous Blood Potassium 4.4 mmol/L (3.6-5.2) 08/30/17 15:17 Urine Color Yellow (YELLOW) 08/31/17 10:27 Urine Clarity Slighty-cloudy (Clear) 08/31/17 10:27 Urine pH 5.0 (5.0-8.0) 08/31/17 10:27 Ur Specific Guion 1.033 (1.003-1.030) H 08/31/17 10:27 Urine Protein >=500 mg/dL (NEGATIVE) 08/31/17 10:27 Urine Glucose (UA) >=500 mg/dL (Normal) 08/31/17 10:27 Urine Ketones 80 mg/dL (NEGATIVE) 08/31/17 10:27 Urine Blood Negative (NEGATIVE) 08/31/17 10:27 Urine Nitrate Negative (NEGATIVE) 08/31/17 10:27 Urine Bilirubin Negative (NEGATIVE) 08/31/17 10:27 Urine Urobilinogen 0.2-1.0 mg/dL (0.2-1.0) 08/31/17 10:27 Ur Leukocyte Esterase Neg Clifford/uL (Negative) 08/31/17 10:27 Urine RBC (Auto) 3 /hpf (0-3) 08/31/17 10:27 Urine Microscopic WBC 2 /hpf (0-5) 08/31/17 10:27 Ur Squamous Epith Cells 2 /hpf (0-5) 08/31/17 10:27 - Hospital Course Hospital Course: 56 yo female admitted to the hospital on 08/30/17 with c/o abdominal pain, nausea /vomiting and some episodic diarrhea and also c/o "slow digestion", the patient has hx of colitis in the past with similar symptoms, upon admission the patient was afebrile, had CBC wnl with CT of abdomen and pelvis report of small bowel colitis. The patient was treated with ciproflouxacin 400 mg IV Q 12 h and Flagyl 500mg iv Q8h, also she was initiated on protonix 40 mg IV QD , reglan 10 mg IV q6h prn for nausea. Patient today denies nausea/vomiting, patient stated feeling better after started taking reglan and was advanced from CLD to solid food today with no c/o N/V, fever or weakness. Patient has a correction hx of DM , DC today home with reglan 10mg PO Q 6h PRN for N/V.Patient instructed to f/u with primary next week. Discharge Exam - Head Exam Head Exam: ATRAUMATIC, NORMOCEPHALIC - Eye Exam Eye Exam: EOMI, Normal appearance, PERRL - ENT Exam ENT Exam: Mucous Membranes Moist - Respiratory Exam Respiratory Exam: Clear to PA & Lateral. absent: Rales, Rhonchi - Cardiovascular Exam Cardiovascular Exam: REGULAR RHYTHM, +S1, +S2. absent: JVD - GI/Abdominal Exam GI & Abdominal Exam: Diminished Bowel Sounds, Tenderness (mild diffuse tenderness, guarding, no rigidity). absent: Guarding - Neurological Exam Neurological exam: Alert, Oriented x3 - Psychiatric Exam Psychiatric exam: Normal Affect, Normal Mood - Skin Skin Exam: Normal Color, Warm Discharge Plan - Discharge Medications Prescriptions: Metoclopramide [Reglan] 10 mg PO ACHS PRN #10 tab PRN Reason: Nausea/Vomiting - Follow Up Plan Condition: STABLE Disposition: HOME/ ROUTINE Instructions: Acute Abdomen (Belly Pain), Adult (DC), Hyperglycemia, Adult (DC) , Gastroparesis (Delayed Gastric Emptying) (DC) Additional Instructions: follow up with your primary MD 1 week take Reglan as prescribed continue with home blood sugar monitoring and sugar medications as prescibed drink lots of fluids if any signs of palpitations, sweating, worsening nausea, vomiting, diarrhea, fever return back to ED Referrals: Des Allred MD [Medical Doctor] - Lety Kimball MD [Family Provider] -
[2017-09-03] MEDS ORDERED: Pantoprazole 20 mg EC Tab PO SCH (09:00)
[2017-09-03] MEDS ORDERED: Multivitamin With Minerals Tab PO SCH (09:00)
== END 2017-09-02 16:45 | disposition home or self-care (01) ==
LOC: H.ER 13:58 → H.ERHOLD 18:44 → H.MEDSURG1 22:26
PROVIDERS: ADMIT Family Medicine Geriatric Medicine; ATTEND Family Medicine Geriatric Medicine
DX: E11.43 Type 2 diabetes mellitus with diabetic autonomic (poly)neuropathy (principal); K31.84 Gastroparesis; G89.29 Other chronic pain; E11.65 Type 2 diabetes mellitus with hyperglycemia; J45.909 Unspecified asthma, uncomplicated; I25.10 Atherosclerotic heart disease of native coronary artery without angina pectoris; F32.9 Major depressive disorder, single episode, unspecified; F41.9 Anxiety disorder, unspecified; Z88.0 Allergy status to penicillin; Z79.4 Long term (current) use of insulin; K29.70 Gastritis, unspecified, without bleeding; I10 Essential (primary) hypertension; Z95.5 Presence of coronary angioplasty implant and graft; E03.9 Hypothyroidism, unspecified; F17.210 Nicotine dependence, cigarettes, uncomplicated; K52.9 Noninfective gastroenteritis and colitis, unspecified; Q43.3 Congenital malformations of intestinal fixation
CPT/HCPCS: 36415; 71045; 74177; 80053; 81003; 82803; 82948; 83036; 83690; 83735; 84100; 84484; 85025; 85027; 85610; 85730; 87040; 93005; 96360; 96361; 96365; 96374; 99284; G0378; J0744; J1170; J1650; J1885; J2060; J2270; J2405; J2765; J7030; J7042; Q9966; Q9967

== ENCOUNTER 2017-12-27 13:11 | Emergency (ER) | payer MEDICARE, MEDICAID ==
[2017-12-27 13:11] VITALS: BMI 22.0
[2017-12-27 13:18] VITALS: RESP 18
--- NOTE | 2017-12-27 13:36 | ED PDOC ---
HPI: Abdomen Time Seen by Provider: 12/27/17 13:36 Chief Complaint (Nursing): Abdominal Pain Chief Complaint (Provider): abdominal pain History Per: Patient Additional Complaint(s): 57-year-old female presents to emergency department with nausea, vomiting, diarrhea and abdominal pain that started yesterday. Patient is not sure if this is related to a cheeseburger that she ate yesterday. She denies fever but has had chills. Patient unable to keep down any solids or liquids and states her abdominal pain is severe. Patient has history of chronic abdominal pain secondary to gastroparesis and takes oxycodone daily. She is currently under the care of pain management. Patient states she has been unable to keep her pain meds down secondary to the vomiting. PMD: [facility] Past Medical History Reviewed: Historical Data, Nursing Documentation, Vital Signs Vital Signs: Last Vital Signs Temp 97.8 F 12/27/17 13:16 Pulse 64 12/27/17 13:16 Resp 18 12/27/17 13:16 BP 160/62 H 12/27/17 13:16 Pulse Ox 99 12/27/17 13:16 - Medical History PMH: Anemia, Anxiety, Asthma, CAD, CHF, Depression, Diabetes, Gastritis, HTN, Hypothyroidism - Surgical History Surgical History: Appendectomy, Cholecystectomy, Coronary Stent, Endoscopy, Tonsillectomy - Family History Family History: States: No Known Family Hx - Living Arrangements Living Arrangements: With Family - Social History Current smoker - smoking cessation education provided: Yes Alcohol: None Drugs: Denies - Home Medications Home Medications: Ambulatory Orders Medication Instructions Recorded Albuterol HFA [Ventolin HFA 90 2 puff IH Q4H PRN 06/18/16 mcg/actuation (8 g)] Alprazolam [Xanax] 0.5 mg PO TID 06/18/16 Citalopram Hydrobromide 40 mg PO HS 06/18/16 [Citalopram HBr] Lisinopril [Zestril] 10 mg PO DAILY 06/18/16 Mirtazapine [Remeron] 15 mg PO HS 06/18/16 Multivit-Min/FA/Lycopen/Lutein 1 tab PO DAILY 10/05/16 [Centrum Silver Tablet] QUEtiapine [SEROquel] 300 mg PO HS 10/05/16 Simvastatin [Zocor] 40 mg PO HS 10/05/16 oxyCODONE [oxyCODONE Immediate 15 mg PO QID PRN 10/05/16 Release Tab] Saccharomyces Boulardi [Florastor] 250 mg PO BID cap 10/11/16 Insulin Detemir [Levemir] 12 units SC HS #2 vial 05/21/17 Insulin Lispro [Humalog (Insulin 4 unit SQ ACHS #1 cartridge 05/21/17 Lispro)] Levothyroxine [Synthroid] 25 mcg PO DAILY #30 tab 05/21/17 Pantoprazole Sodium [Protonix] 20 mg PO DAILY #30 ect 05/21/17 Metoclopramide [Reglan] 10 mg PO ACHS PRN #10 tab 09/02/17 Dicyclomine [Bentyl] 10 mg PO QID PRN #20 cap 12/27/17 Metoclopramide [Reglan] 10 mg PO Q6 PRN #20 tab 12/27/17 - Allergies Allergies/Adverse Reactions: Allergies Allergy/AdvReac Type Severity Reaction Status Date / Time Penicillins Allergy RASH Verified 12/27/17 13:16 lipitor AdvReac Intermediate RASH Uncoded 12/27/17 13:16 Review of Systems ROS Statement: Except As Marked, All Systems Reviewed And Found Negative Constitutional: Positive for: Chills. Negative for: Fever Respiratory: Negative for: Cough Gastrointestinal: Positive for: Nausea, Vomiting, Abdominal Pain, Diarrhea. Negative for: Constipation Genitourinary Female: Negative for: Dysuria Physical Exam - Reviewed Nursing Documentation Reviewed: Yes Vital Signs Reviewed: Yes - Physical Exam Appears: Positive for: Well, Non-toxic, No Acute Distress Skin: Positive for: Normal Color. Negative for: Rash Eye Exam: Positive for: Normal appearance Cardiovascular/Chest: Positive for: Regular Rate, Rhythm Respiratory: Positive for: Normal Breath Sounds Gastrointestinal/Abdominal: Positive for: Other (Abdomen is soft, no guarding, distention or rebound, pain is out of proportion to physical exam findings) Back: Negative for: L CVA Tenderness, R CVA Tenderness Extremity: Positive for: Normal ROM Neurologic/Psych: Positive for: Alert, Oriented - Laboratory Results Result Diagrams: 12/27/17 15:30 12/27/17 15:30 Urine dip results: Positive for: Ketones. Negative for: Leukocyte Esterase, Blood, Nitrate, Glucose, Bilirubin, Protein - ECG O2 Sat by Pulse Oximetry: 99 Pulse Ox Interpretation: Normal - Other Rad CT and and pelvis with IV contrast X-Ray: Read By Radiologist X-Ray Interpretation: see below Medical Decision Making Medical Decision Makin57 year old with abdominal pain Plan: CBC CMP Lipase Urine dip IVF IV zofran IV toradol CT abd and pelvis with oral and IV contrast 4:00 pm: Patient reports persistent nausea despite Zofran dose given, additional vomiting noted. IV Reglan ordered. Patient also states the Toradol did not help her pain, 20 mg IM Bentyl also ordered. Glucose also high at 360, insulin 5 units given IV. 5:15 pm: patient is observed trying to forcefully vomited. She is refusing to drink oral contrast. CAT scan will be completed with IV contrast only. 7:00 pm: CT: IMPRESSION: Large bowel wall thickening suspicious for colitis. Otherwise no significant interval change noted since the previous exam. Patient states nausea has resolved. She is now tolerating water. She still has pain. Patient has history of chronic abdominal pain secondary to gastroparesis. She takes oxycodone 4-5 times daily to manage his pain. Patient was provided with prescriptions for Reglan and Bentyl and was advised to continue with routine meds that she takes daily. Instructions given for clear liquids and bland diet only. PMD follow-up in 2-3 days. Disposition - Clinical Impression Clinical Impression: Colitis, Chronic abdominal pain - Patient ED Disposition Is Patient to be Admitted: No Counseled Patient/Family Regarding: Studies Performed, Diagnosis, Need For Followup, Rx Given - Disposition Referrals: [facility] [Outside] Disposition: Routine/Home Disposition Time: 19:02 Condition: STABLE Additional Instructions: Drink plenty of clear liquids and follow bland diet. Take prescription meds as directed. Continue with routine medications that he normally takes daily. Fo llow-up in 2-3 days with clinic. Prescriptions: Dicyclomine [Bentyl] 10 mg PO QID PRN #20 cap PRN Reason: Gi Distress Metoclopramide [Reglan] 10 mg PO Q6 PRN #20 tab PRN Reason: Nausea/Vomiting Instructions: Viral Gastroenteritis, Adult (DC), Acute Abdomen (Belly Pain), Adult (DC) Forms: [employer] (Paraguayan) Results - Lab Results Lab Results: 12/27/17 12/27/17 12/27/17 17:07 16:17 15:30 WBC 11.4 H D RBC 3.70 L Hgb 11.4 L Hct 34.1 MCV 92.3 D MCH 30.8 MCHC 33.3 RDW 14.0 Plt Count 282 MPV 9.2 Neut % (Auto) 71.0 Lymph % (Auto) 22.6 Peach % (Auto) 5.5 Eos % (Auto) 0.4 Baso % (Auto) 0.5 Neut # (Auto) 8.1 H Lymph # (Auto) 2.6 Peach # (Auto) 0.6 Eos # (Auto) 0.0 Baso # (Auto) 0.1 Sodium Potassium Chloride Carbon Dioxide Anion Gap BUN Creatinine Est GFR ( Amer) Est GFR (Non-Af Amer) POC Glucose (mg/dL) 255 H 329 H Random Glucose Calcium Total Bilirubin AST ALT Alkaline Phosphatase Total Protein Albumin Globulin Albumin/Globulin Ratio Lipase 12/27/17 15:30 WBC RBC Hgb Hct MCV MCH MCHC RDW Plt Count MPV Neut % (Auto) Lymph % (Auto) Peach % (Auto) Eos % (Auto) Baso % (Auto) Neut # (Auto) Lymph # (Auto) Peach # (Auto) Eos # (Auto) Baso # (Auto) Sodium 140 Potassium 4.6 Chloride 105 Carbon Dioxide 20 L Anion Gap 20 BUN 22 H Creatinine 0.6 L Est GFR ( Amer) > 60 Est GFR (Non-Af Amer) > 60 POC Glucose (mg/dL) Random Glucose 360 H Calcium 10.0 Total Bilirubin 0.7 AST 43 H D ALT 29 Alkaline Phosphatase 144 H D Total Protein 7.8 Albumin 4.3 Globulin 3.5 Albumin/Globulin Ratio 1.2 Lipase 76
[2017-12-27] MEDS ORDERED: Sodium Chloride 0.9% 1,000 ML IV STA (14:34)
[2017-12-27] MEDS ORDERED: Iohexol 240 (50 ml) PO STA (14:34)
[2017-12-27] MEDS ORDERED: Iohexol 240 (50 ml) ONE (14:55)
[2017-12-27 15:48] LABS: BASO # 0.1 K/uL (0.0-0.2); BASO % 0.5 % (0.0-2.0); EOS % 0.4 % (0.0-4.0); HEMOGLOBIN 11.4 g/dL (12.0-16.0); LYMPH # 2.6 K/uL (1.0-4.3); LYMPH % 22.6 % (20.0-40.0); MEAN CELL VOLUME 92.3 fl (81.0-99.0); MEAN CORPUSCULAR HEMOGLOBIN 30.8 pg (27.0-31.0); MEAN CORPUSCULAR HGB CONC 33.3 g/dL (33.0-37.0); MEAN PLATELET VOLUME 9.2 fl (7.2-11.7); MONO # 0.6 K/uL (0.0-0.8); MONO % 5.5 % (0.0-10.0); NEUT # 8.1 K/uL (1.8-7.0); NRBC % 0.2 % (0.0-0.0); RBC 3.7 Mil/uL (3.80-5.20); WHITE BLOOD COUNT 11.4 K/uL (4.8-10.8)
[2017-12-27 15:56] LABS: ALB/GLOB RATIO 1.2 (1.0-2.1); ALBUMIN 4.3 g/dL (3.5-5.0); ALT/SGPT 29 U/L (9-52); AST/SGOT 43 U/L (14-36); BLOOD UREA NITROGEN 22 mg/dl (7-17); GFR NON-AFRICAN AMERICAN > 60; LIPASE 76 U/L (23-300)
[2017-12-27] MEDS ORDERED: Insulin Regular 100 units/ml IV STA (16:01)
[2017-12-27] MEDS ORDERED: Insulin Regular 100 units/ml ONE (16:10)
[2017-12-27] MEDS ORDERED: Iohexol 300 100 ML IJ ONE (16:54)
[2017-12-27] MEDS ORDERED: Sodium Chloride 0.9% 50 ML IV ONE (16:55)
--- NOTE | 2017-12-27 18:19 | CT ---
Date of service: 12/27/2017 PROCEDURE: CT Abdomen and Pelvis with contrast HISTORY: diffuse abd pain COMPARISON: Comparison is made to the previous study dated 08/30/2017 TECHNIQUE: Contrast dose: 80 mL of Omnipaque 300 intravenously. Axial and reformatted coronal and sagittal CT images of the abdomen and pelvis were obtained after IV and oral contrast administration. Radiation dose: Total exam DLP = 198.59 mGy-cm. This CT exam was performed using one or more of the following dose reduction techniques: Automated exposure control, adjustment of the mA and/or kV according to patient size, and/or use of iterative reconstruction technique. FINDINGS: LOWER THORAX: Unremarkable. LIVER: Unremarkable. No gross lesion or ductal dilatation. GALLBLADDER AND BILE DUCTS: Status post prior cholecystectomy. The common bile duct is mildly dilated likely due to prior cholecystectomy. PANCREAS: The pancreas is again markedly small in size with fatty replacement. No CT evidence of acute pancreatitis. The main pancreatic duct is not dilated. SPLEEN: Unremarkable. ADRENALS: Unremarkable. No mass. KIDNEYS AND URETERS: Unremarkable. No hydronephrosis. No solid mass. VASCULATURE: Unremarkable. No aortic aneurysm. No aortic atherosclerotic calcification or mural plaque present. BOWEL: Again noted is mild rotation of the small bowel with most of proximal small bowels are and the right side of the abdomen and the cecum is in the mid abdomen. There is large bowel wall thickening noted in the mid and left abdomen suspicious for colitis. No evidence of high-grade bowel obstruction. APPENDIX: Normal appendix. PERITONEUM: Unremarkable. No free fluid. No free air. LYMPH NODES: Unremarkable. No enlarged lymph nodes. BLADDER: The urinary bladder is grossly unremarkable. REPRODUCTIVE: The uterus and adnexa are not visualized. BONES: No acute fracture. OTHER FINDINGS: None. IMPRESSION: Large bowel wall thickening suspicious for colitis. Otherwise no significant interval change noted since the previous exam.
[2017-12-27 19:17] VITALS: BP 140/71; PULSE 63; TEMP 98.1; O2SAT 100
== END 2017-12-27 19:19 | disposition home or self-care (01) ==
LOC: H.ER 13:11
DX: K52.9 Noninfective gastroenteritis and colitis, unspecified (principal); R10.9 Unspecified abdominal pain; E03.9 Hypothyroidism, unspecified; E11.43 Type 2 diabetes mellitus with diabetic autonomic (poly)neuropathy; I11.0 Hypertensive heart disease with heart failure; Z79.4 Long term (current) use of insulin; Z88.0 Allergy status to penicillin; Z95.5 Presence of coronary angioplasty implant and graft
CPT/HCPCS: 74177; 80053; 82948; 83690; 85025; 96361; 96372; 96374; 96375; 99284; J0500; J1885; J2405; J2765; J7030; Q9966; Q9967

== ENCOUNTER 2018-03-14 13:56 | Emergency (ER) | payer MEDICARE, MEDICAID ==
[2018-03-14 14:06] VITALS: RESP 18; BMI 20.2
--- NOTE | 2018-03-14 15:17 | ED PDOC ---
HPI: General Adult Time Seen by Provider: 03/14/18 14:21 Chief Complaint (Nursing): Rib Injury Chief Complaint (Provider): Rib injury History Per: Patient History/Exam Limitations: no limitations Onset/Duration Of Symptoms: Days (3x days) Current Symptoms Are (Timing): Still Present Severity: Moderate Additional Complaint(s): 57 year old female with a past medical history of hypertension, diabetes, and ulcerative colitis presents to the ED for an evaluation of left sided rib pain that started 3 days ago. Patient reports that 3 days ago she was walking, when she tripped over her cane and fell onto the left side with her arm lifted above, causing impact to the left side of her chest and breast. Patient reports having pain with inspiration since then. Patient reports using oxycodone, which she reports is prescribed to her for questionable fibromyalgia. Patient reports that the pain improves with oxycodone, but has been persistent. Patient denies having substernal chest pain, dizziness, head trauma, and loss of consciousness. PMD: [facility] Past Medical History Reviewed: Historical Data, Nursing Documentation, Vital Signs Vital Signs: Last Vital Signs Temp 97.9 F 03/14/18 14:06 Pulse 101 H 03/14/18 14:06 Resp 18 03/14/18 14:06 BP 197/84 H 03/14/18 14:06 Pulse Ox 99 03/14/18 14:06 FRED Report Viewed: Yes - Medical History PMH: Anemia, Anxiety, Asthma, CAD, CHF, Depression, Diabetes, Fractures (rib (left)), Gastritis, HTN, Hyperthyroidism (pt is not sure what she has ), Hypothyroidism Denies: Arthritis, COPD, HIV, Hypercholesterolemia, Chronic Kidney Disease, Rheumatoid Arthritis Other PMH: ulcerative colitis - Surgical History Surgical History: Appendectomy, Cholecystectomy, Coronary Stent, Endoscopy, Tonsillectomy - Family History Family History: States: No Known Family Hx - Social History Current smoker - smoking cessation education provided: No Ex-Smoker (has not smoked in the last 12 months): Yes Alcohol: None Drugs: Denies - Immunization History Hx Tetanus Toxoid Vaccination: No Hx Influenza Vaccination: Yes Hx Pneumococcal Vaccination: Yes - Home Medications Home Medications: Ambulatory Orders Medication Instructions Recorded Albuterol HFA [Ventolin HFA 90 2 puff IH Q4H PRN 06/18/16 mcg/actuation (8 g)] Alprazolam [Xanax] 0.5 mg PO TID 06/18/16 Citalopram Hydrobromide 40 mg PO HS 06/18/16 [Citalopram HBr] Lisinopril [Zestril] 10 mg PO DAILY 06/18/16 Mirtazapine [Remeron] 15 mg PO HS 06/18/16 Multivit-Min/FA/Lycopen/Lutein 1 tab PO DAILY 10/05/16 [Centrum Silver Tablet] QUEtiapine [SEROquel] 300 mg PO HS 10/05/16 Simvastatin [Zocor] 40 mg PO HS 10/05/16 oxyCODONE [oxyCODONE Immediate 15 mg PO QID PRN 10/05/16 Release Tab] Saccharomyces Boulardi [Florastor] 250 mg PO BID cap 10/11/16 Insulin Detemir [Levemir] 12 units SC HS #2 vial 05/21/17 Insulin Lispro [Humalog (Insulin 4 unit SQ ACHS #1 cartridge 05/21/17 Lispro)] Levothyroxine [Synthroid] 25 mcg PO DAILY #30 tab 05/21/17 Pantoprazole Sodium [Protonix] 20 mg PO DAILY #30 ect 05/21/17 Metoclopramide [Reglan] 10 mg PO ACHS PRN #10 tab 09/02/17 Dicyclomine [Bentyl] 10 mg PO QID PRN #20 cap 12/27/17 Metoclopramide [Reglan] 10 mg PO Q6 PRN #20 tab 12/27/17 Acetaminophen [Tylenol 325mg tab] 650 mg PO Q6 PRN 7 Days tab 03/14/18 - Allergies Allergies/Adverse Reactions: Allergies Allergy/AdvReac Type Severity Reaction Status Date / Time Penicillins Allergy RASH Verified 03/14/18 14:03 lipitor AdvReac Intermediate RASH Uncoded 12/27/17 13:16 Review of Systems ROS Statement: Except As Marked, All Systems Reviewed And Found Negative Cardiovascular: Positive for: Chest Pain (left sided chest and breast pain. Pain with inspiration. (-) substernal chest pain) Neurological: Negative for: Dizziness, Other (head trauma, loss of consciousness) Physical Exam - Reviewed Nursing Documentation Reviewed: Yes Vital Signs Reviewed: Yes - Physical Exam Appears: Positive for: Non-toxic, Uncomfortable Head Exam: Positive for: ATRAUMATIC, NORMOCEPHALIC Cardiovascular/Chest: Positive for: Regular Rate, Rhythm. Negative for: Chest Non Tender (pain on palpation of left ribcage and left lateral aspect of left breast. (-) ecchymosis, (-) erythema, (-) swelling noted.) Respiratory: Positive for: Normal Breath Sounds Neurologic/Psych: Positive for: Alert, Oriented (3x) - ECG ECG: Positive for: Interpreted By Me, Viewed By Me ECG Rhythm: Positive for: Sinus Rhythm (normal), Nonspecific Changes (nonspecific T wave abnormality in anterior leads) Interpretation Of ECG: sinus arrhythmia. QTC is 489. Rate: 91 O2 Sat by Pulse Oximetry: 99 (RA) Pulse Ox Interpretation: Normal - Radiology X-Ray: Interpreted by Me, Viewed By Me (no rib fracture, see MDM note) Medical Decision Making Medical Decision Makin:21 Initial impression: 57 year old female with left sided rib pain Initial plan: * XRay left rib * toradol 30 mg IM (patient does not take tylenol or ibuprofen due to ulcerative colitis) * reevaluation 15:50 XRay of left rib confirmed verbally with radiologist: no rib fracture. Pain slightly improved. VSS. Stable for d/c home. Scribe Attestation: Documented Mary Arias, acting as a scribe for Bianca Calderon PA-C. Provider Scribe Attestation: All medical record entries made by the Scribe were at my direction and personally dictated by me. I have reviewed the chart and agree that the record accurately reflects my personal performance of the history, physical exam, medical decision making, and the department course for this patient. I have also personally directed, reviewed, and agree with the discharge instructions and disposition. Disposition - Clinical Impression Clinical Impression: Rib pain on left side - Patient ED Disposition Is Patient to be Admitted: No - Disposition Referrals: [facility] [Outside] Disposition: Routine/Home Disposition Time: 16:11 Condition: STABLE Additional Instructions: Continue to take your Oxycodone and Tylenol for rib pain. It will take up to one week after injury for pain to improve. Return to ER if you are having worsening trouble breathing despite improved pain control. Prescriptions: Acetaminophen [Tylenol 325mg tab] 650 mg PO Q6 PRN 7 Days tab PRN Reason: Pain, Moderate (4-7) Instructions: Chest Pain That Is Not Caused by the Heart (DC) Forms: [employer] (Sudanese) Print Language: FRENCH
--- NOTE | 2018-03-14 15:59 | RAD ---
Date of service: 03/14/2018 PROCEDURE: Radiographs of the Chest and Left Ribs. HISTORY: fall onto left chest, pain COMPARISON: None available. TECHNIQUE: Frontal radiograph of the chest and multiple oblique radiographs of the left ribs were obtained. FINDINGS: LEFT RIBS: No fracture or focal lesion visualized. LUNGS: No infiltrate or pneumothorax identified. PLEURA: No pneumothorax or pleural fluid. CARDIOVASCULAR: Normal cardiac size. No pulmonary vascular congestion. No aortic atherosclerotic calcification present OTHER FINDINGS: None. IMPRESSION: Unremarkable radiographs of the chest and left ribs. No left rib fracture.
[2018-03-14 16:12] VITALS: BP 160/88; TEMP 98
--- NOTE | 2018-03-15 20:55 | CARD ---
APPROVED REPORT Date of service: 03/14/2018 EKG Measurement Heart [id number] <Conclusion> Normal sinus rhythm with sinus arrhythmia Prolonged QT Abnormal ECG
[2018-03-15 21:19] VITALS: PULSE 91; O2SAT 99
== END 2018-03-14 16:11 | disposition home or self-care (01) ==
LOC: H.ER 13:56
DX: R07.89 Other chest pain (principal); W01.0XXA Fall on same level from slipping, tripping and stumbling without subsequent striking against object, initial encounter; E11.9 Type 2 diabetes mellitus without complications; Z86.59 Personal history of other mental and behavioral disorders; Z79.4 Long term (current) use of insulin; Z87.891 Personal history of nicotine dependence; Z88.0 Allergy status to penicillin; Z95.5 Presence of coronary angioplasty implant and graft; J45.909 Unspecified asthma, uncomplicated
CPT/HCPCS: 71100; 93005; 96372; 99283; J1885